=== PATIENT | male | born 1980 | race Caucasian/White ===

== ENCOUNTER 2018-04-14 17:19 | Emergency (ER) | payer MEDICAID, SELFPAY ==
[2018-04-14 17:20] VITALS: BP 141/99; PULSE 63; RESP 16; TEMP 37.2; O2SAT 98; BMI 23.6
--- NOTE | 2018-04-14 17:35 | ED.RN ---
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
[2018-04-14 18:31] LABS: Anion Gap 4 (5-15); BUN 18 mg/dL (7-18); BUN/Creat Ratio 20.8 RATIO (10-20); Calcium,Total 8.8 mg/dL (8.5-10.1); Chloride 106 mmol/L (98-107); Creatinine, Serum 0.86 mg/dL (0.70-1.30); EST Glomerular Filtration Rate 105 mL/min (>60); Est Glom Filt Rate - Afr Amer 127 mL/min (>60); Estimated Creatinine Clearance 120.25 ml/min; Glucose 77 mg/dL (74-106); Potassium 3.9 mmol/L (3.5-5.1); Sodium Level 140 mmol/L (136-145)
--- NOTE | 2018-04-14 19:05 | ED.VISSUMM ---
- ER Visit Summary Date of Service: 04/14/18 Chief Complaint: [Numbness and tingling to right hand and left hand. ] History of Present Illness: The patient is a 37 M presents the emergency department with complaint of numbness mostly to his right hand but he has had some numbness in his left hand as well. Patient does a lot of repetitive motions with his hands at work. Patient notices at night sometimes she will wake up in his entire hand will be numb and initially thought maybe he slept wrong on it. Patient states that while at work he is having numbness in the right hand when using hammers repetitively. He denies any pain in his neck. He denies any real significant weakness in extremities. The numbness tingling typically resolves with rest. Currently he has no numbness. Patient denies any chest pain or shortness of breath.] Physical Examination: [HEENT-PERRLA, EOMI. Cranial nerves II through XII grossly intact. TMs clear. Mucous membranes moist. No adenopathy. Cardiovascular-regular rate and rhythm without murmur or ectopy Lungs-clear to auscultation, chest wall stable without crepitus or subcu emphysema Abdomen-normoactive bowel sounds, soft, nontender, no rebound or rigidity, no peritoneal signs. Extremities-intact ?4, normal range of motion, normal pulses, atraumatic]. 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 There is no thenar wasting. Normal pincher grasp. Negative Tinel sign. Test Results: [BMP obtained was normal] Emergency Department Course and Treatment: [Patient will be given a splint for his right wrist.] Treatment Plan: [Patient given a prescription for Naprosyn and a splint and advised to try to avoid repetitive motions. Patient will be referred to orthopedics for follow-up] Disposition: [Discharged home in stable condition] Impression: [Paresthesias/peripheral neuropathy] This note was generated with [employer]per[employer] dictation software. It may contain incorrect words, spelling, and punctuation that were not noted in review of the chart prior to signing ED Disposition - Plan for ED Patient: Chief Complaint: Numb/Ting Referrals: Care Physician,No Primary [Primary Care Provider] -
--- NOTE | 2018-04-14 19:07 | ED.DEP ---
ED Disposition - Plan for ED Patient: Chief Complaint: Numb/Ting Instructions: ED Neuropathy Peripheral Prescriptions: Naproxen [Naprosyn] 500 mg PO BID PRN #20 tab Referrals: Care Physician,No Primary [Primary Care Provider] - Cal Calzada MD [STAFF PHYSICIAN] - 5-7 Days
[2018-04-14 19:21] VITALS: RESP 16
== END 2018-04-14 19:22 | disposition home or self-care (01) ==
LOC: ED 19:06
PROVIDERS: Emergency Provider Emergency Medicine
DX: R20.2 Paresthesia of skin (principal); G62.9 Polyneuropathy, unspecified; F17.220 Nicotine dependence, chewing tobacco, uncomplicated
CPT/HCPCS: 36415; 80048; 99283

== ENCOUNTER 2020-09-27 02:02 | Observation (INO) | payer MEDICAID, SELFPAY ==
[2020-09-27] VITALS (24 sets, daily range): BP systolic 110–178; BP diastolic 69–100; PULSE 55–556; RESP 14–23; TEMP 35.9–36.9; O2SAT 97–100; BMI 24.7; BMI 25.4
--- NOTE | 2020-09-27 02:03 | EKG12_ITS ---
Test Reason : CP Blood Pressure : / mmHG Vent. Rate : 066 BPM Atrial Rate : 066 BPM P-R Int : 094 ms QRS Dur : 082 ms QT Int : 418 ms P-R-T Axes : 048 047 073 degrees QTc Int : 438 ms Sinus rhythm with short TX Nonspecific ST and T wave abnormality Abnormal ECG Confirmed by DEJUAN WRIGHT, FATUMA ([id number]), television news video editor JOSÉ PARSONS ([id number]) on 09/30/2020 10:56:16 AM Referred By: ABBE Confirmed By:BHAVYA ZAIDI MD
--- NOTE | 2020-09-27 02:03 | CT_ITS ---
STUDY: CTA CHEST REASON FOR EXAM: Male, 40 years old. CHEST PAIN,SOB,ELEVATED BP -- HX:PE RADIATION DOSAGE (If Supplied By Facility): CTDIvol = ( 11.12 ) mGy, DLP = ( 422.13 ) mGycm TECHNIQUE: The examination was performed with the intravenous administration of IV 100mL Isovue-370. Post-processing of the angiographic images was performed, with multiplanar reformation and 3D reconstruction. Individualized dose optimization techniques were used for this CT. COMPARISON: 10/22/2013. FINDINGS: Normal enhancement of the main pulmonary artery and right and left pulmonary arteries. Normal enhancement of the bilateral peripheral pulmonary arteries. There is no demonstrated pulmonary embolism. Normal thoracic aorta and visualized great vessels. There is no demonstrated aortic dissection. Normal heart and pericardium. Normal mediastinum. Normal hilar regions. Normal visualized trachea and bronchi. The lungs are well expanded. Mild posterior dependent atelectasis. Mild atelectasis within the lingular lobe. Otherwise normal pulmonary parenchyma. Normal pleura. Normal chest wall structures. Normal osseous structures. Normal visualized upper abdomen. CT/CTA Chest W/WO Contrast IMPRESSION: Normal CTA chest examination, without a demonstrated pulmonary embolism or arterial dissection. Mild posterior dependent and left lingular atelectasis otherwise no acute cardiopulmonary process. Electronically Signed: Marie Logan MD at 3:32 EST , Service support ,
--- NOTE | 2020-09-27 02:06 | ED.VIS.GEN ---
History of Present Illness Chief Complaint: Chest Pain Informant: Patient Onset: Yesterday Context: Gradual Onset Timing: Continuous Current Severity: Moderate Maximum Severity: Moderate Narrative: The patient is a 40-year-old male who is on no daily medications who presents to the emergency department chest pain. Patient states for the past week, he does not feel himself. He states he has been fatigued. He states he had some scant chest pain. He states that overnight into this morning, the pain got worse. He states he feels short of breath. He describes it as a squeezing pain across his chest. The patient did have history of pulmonary embolus after knee surgery. He states he was treated with anticoagulants for 6 months and did fine. There is a family history of heart disease, but he has no history of coronary vascular disease. He takes no daily medications. He denies cough. Prior similar symptoms: Yes Recent Illness/Hospitalization: No Past Medical History - Allergies and Home Meds Allergies/Adverse Reactions: Allergies No Known Allergies Allergy (Verified 09/27/20 02:03) Primary Care Physician: Deborah Leonard MD [Primary Care Provider] - Prior records reviewed: Yes Past Medical History: - - History of prior PE Surgical History: herniorrhaphy, - - left knee I&D with repair of vastus medialis. Smoking Status: Current every day smoker Review of Systems General: Denies: Chills, Fever, Sweats Eyes: Denies: Visual changes - bilaterally, Diplopia ENT: Denies: Rhinorrhea, Sore throat Cardiovascular: Reports: Chest pain. Denies: Palpitations Respiratory: Reports: Dyspnea. Denies: Cough, Dyspnea on exertion Gastrointestinal: Denies: Abdominal pain, Nausea, Vomiting, Diarrhea, Melena, Hematochezia Genitourinary: Denies: Dysuria, Hematuria, Frequency Musculoskeletal: Denies: Back pain, Extremity Pain Skin: Denies: Rash, Wounds Neurological: Denies: Headache, Weakness, Numbness Physical Exam Vital Signs/Narrative: Vital Signs Temp 09/27/20 02:03 96.6 F L Inital Vital Signs reviewed: Yes General: Well nourished, Well developed, No Acute Distress Head: Normocephalic, Atraumatic Eyes: Perrl, EOMI ENT: Moist mucous membranes, No rhinorrhea Neck: Supple, Nontender Cardiovascular: Regular rate, Regular rhythm, No murmurs Respiratory: No distress, CTA bilaterally, Chest nontender Abdomen: Soft, Nontender, Nondistended, Normal bowel sounds Back: Nontender, Normal Inspection Extremities: Nontender, No edema Skin: Normal color, No rash Neurological: Alert, Oriented x3, Cranial nerves II-XII grossly intact, Normal Strength, Normal Sensation Psychological: Normal affect, Normal Mood Diagnostic/Tx/Re-eval Abnormal Lab Results 09/27/20 09/27/20 09/27/20 02:10 02:10 02:10 WBC 7.8 RBC 5.40 Hgb 14.8 Hct 44.4 MCV 82.2 MCH 27.4 MCHC 33.3 RDW Std Deviation 36.4 RDW Coeff of Mike 12.2 Plt Count 276 MPV 11.7 Immature Gran % (Auto) 0.300 Neut % (Auto) 44.9 L Lymph % (Auto) 41.4 H Montgomery % (Auto) 8.6 Eos % (Auto) 4.2 Baso % (Auto) 0.6 Absolute Neuts (auto) 3.5 Absolute Lymphs (auto) 3.24 Nucleated RBC % 0 Sodium 139 Potassium 3.5 Chloride 104 Carbon Dioxide 29.0 Anion Gap 6 BUN 18 Creatinine 0.96 Estim Creat Clear Calc 107.85 Est GFR (MDRD) Af Amer 111 Est GFR (MDRD) Non-Af 92 BUN/Creatinine Ratio 18.8 Glucose 108 H Calcium 9.8 Magnesium 2.2 Troponin I < 0.015 Lipase 88 - Rhythm Strip Rhythm Strip: Sinus Rhythm Rate: 90 Ectopy: None - EKG Initial EKG Interpretation: Sinus Rhythm, No Acute Injury Pattern Prior: Unchanged - Medical Decision Making Patient presents with substernal chest pain that radiates to his neck. He is rather uncomfortable on arrival. EKG was obtained. Was sinus rhythm without evidence of acute ischemia. There is no significant change from prior. Metabolic work-up was pursued. I did not obtain x-ray, and move directly to CTA. This was reviewed. There was no evidence of pulmonary embolus, effusion, or other dangerous process. His cardiac enzymes are negative. However, given his rather significant pain, that starts in the substernal area and radiates to his neck, along with the shortness of breath, I do feel that he would benefit from observation. The patient was discussed with the hospitalist. Impression 1. Chest pain ED Disposition - Plan for ED Patient: Referrals: Deborah Leonard MD [Primary Care Provider] -
[2020-09-27] MEDS: Morphine 4 MG/ML Syringe IV ×2 (02:12→05:30)
[2020-09-27] MEDS: Aspirin 81 MG TAB.CHEW 324 MG PO (02:12)
[2020-09-27] MEDS: Ondansetron 4 MG/2 ML Vial IV ×2 (02:12→05:30)
[2020-09-27 02:17] LABS: Absolute Lymphocyte Count 3.24 X10^3/uL (0.83-4.51); Absolute Neutrophil Count 3.5 X10^3/uL (2.0-7.7); Basophil# 0.05 X10^3/uL; Basophil% 0.6 % (0-1); Eosinophil# 0.33 X10^3/uL; Eosinophils% 4.2 % (0-5); Hematocrit 44.4 % (40-54); Hemoglobin 14.8 g/dL (13.0-16.5); Lymphocyte # 3.24 X10^3/ul (4.0); Lymphocyte % 41.4 % (19-41); Mean Corp Hgb Conc 33.3 g/dL (32-36); Mean Corpuscular Hgb 27.4 pg (27.0-32.0); Mean Corpuscular Volume 82.2 fL (80-94); Mean Platelet Vol. 11.7 fl (6.2-12.0); Monocyte# 0.67 X10^3/uL; Monocyte% 8.6 % (0-10); NRBC Flagged by Analyzer 0 % (0-5); Neutrophil # 3.52 X10^3/uL (2.7-7.7); Neutrophil % 44.9 % (47-70); Platelet Count 276 K/mm3 (150-450); RBC Distribution Width CV 12.2 % (11.6-14.6); RBC Distribution Width SD 36.4 fl (35.1-43.9); White Blood Count 7.8 K/mm3 (4.4-11.0)
[2020-09-27 02:42] LABS: Anion Gap 6 (5-15); BUN 18 mg/dL (7-18); BUN/Creat Ratio 18.8 RATIO (10-20); Calcium,Total 9.8 mg/dL (8.5-10.1); Chloride 104 mmol/L (98-107); Creatinine, Serum 0.96 mg/dL (0.70-1.30); EST Glomerular Filtration Rate 92 mL/min (>60); Est Glom Filt Rate - Afr Amer 111 mL/min (>60); Estimated Creatinine Clearance 107.85 ml/min; Glucose 108 mg/dL (74-106); Magnesium 2.2 mg/dL (1.6-2.6); Potassium 3.5 mmol/L (3.5-5.1); Sodium Level 139 mmol/L (136-145)
[2020-09-27 02:55] LABS: Lipase 88 U/L (73-393)
--- NOTE | 2020-09-27 03:10 | EKG12_ITS ---
Test Reason : REPEAT CP Blood Pressure : / mmHG Vent. Rate : 061 BPM Atrial Rate : 061 BPM P-R Int : 144 ms QRS Dur : 088 ms QT Int : 432 ms P-R-T Axes : 052 044 067 degrees QTc Int : 434 ms Normal sinus rhythm Normal ECG Confirmed by DEJUAN WRIGHT, FATUMA ([id number]), staff editor JOSÉ PARSONS ([id number]) on 09/30/2020 10:58:49 AM Referred By: ABBE Confirmed By:BHAVYA ZAIDI MD
--- NOTE | 2020-09-27 03:33 | HP.PCM_ITS ---
Problem List (1) Chest pain Status: Acute Qualifiers: Chest pain type: unspecified Qualified Code(s): R07.9 - Chest pain, unspecified (2) Elevated BP without diagnosis of hypertension Status: Acute (3) Chewing tobacco use Status: Chronic (4) Anxiety Status: Chronic (5) Pulmonary embolism and infarction Status: Resolved History of Present Illness Date of Admission: 09/27/20 Chief Complaint: Chest pain The patient is a 40 y/o M w/ PMHx: Hx BL PE following knee surgery, Anxiety, Chew Tobacco use who presents to the [facility] ED on 09/27/20 with history of body aches specifically worsened back discomfort acute on chronic making sleeping very difficult noting that he been going from different beds and couches in the house without great success over the last 1 to 2 weeks, more severe over the last week with an onset of intermittent sensation upon awakening of some discomfort radiating from his back to the midsternal chest region with increased fatigue, malaise, episodes of loose stools x2 days with no specific fever, chills, nausea, emesis, alteration of sense of taste or smell, cough but dyspnea worse with exertion and significant onset on day of ED presentation of severe pain rated 10 out of 10 which he reports starting initially in his umbilicus region and extending upwards not specifically in the midsternal region but the lateral parts of his chest bilaterally up towards his bilateral neck region reported as a squeezing with increased dyspnea prompting ED presentation. Patient currently reports improvement rating his discomfort currently now 3 out of 10 in severity. He does note when he did lay flat in the CT scanner he had onset again of severe discomfort. He denies any recent specific ill contacts but does note that his children go to school. Work-up in the ED included T 96.6, heart rate 68, BP initially 178/100, respiratory rate 23, on a percent on room air, CBC with WC 7.8, hemoglobin 14.8, platelet 276 with no significant shift, BMP unremarkable aside glucose 108, magnesium 2.2, troponin less than 0.015, lipase 88, BNP pending, chest CTPA with no evidence of PE or arterial dissection, mild posterior dependent and left lingular atelectasis otherwise no acute cardiopulmonary findings, EKG with SR without acute evidence of ischemia. In the ED patient ministered Zofran, morphine, aspirin, normal saline. Recent outpatient COVID testing day prior of unclear type negative per patient report. Past Medical History Past Medical History (Chronic Problems): Chronic Problems (Last Reviewed 12/21/18 @ 10:01 by Jannet Marquez) Chewing tobacco use (Chronic) Anxiety (Chronic) Right groin pain (Chronic) Dermatitis (Chronic) Urinary frequency (Chronic) Kidney stones (Chronic) Back problem (Chronic) Medical History: Medical History (Last Reviewed 12/21/18 @ 10:01 by Jannet Marquez) Kidney stones (Chronic) N20.0 Back problem (Chronic) M53.9 Allergies No Known Allergies Allergy (Verified 09/27/20 02:03) Home Medications: Ambulatory Orders Medication Instructions Recorded NK 09/27/20 Surgical History: Surgical History (Last Reviewed 12/21/18 @ 10:01 by Jannet Marquez) History of knee surgery Z98.890 Surgical History: herniorrhaphy, - - Left knee I&D with repair of vastus medialis secondary to saw injury. Psychiatric History: No pertinent psych hx Lives: Spouse/ Significant Other, With Family Smoking Status: Current some day smoker - Patient will occasionally smoke cigarettes however primarily chewed tobacco user. Tobacco Use: Chew - Patient with ongoing chew tobacco with 1 can daily usage. Alcohol: None Drugs: None - *Family History Maternal Family History: Family History (Last Reviewed 12/21/18 @ 10:01 by Jannet Marquez) Aunt Cancer CVA (cerebral vascular accident) Uncle Cancer Father Myocardial infarction Heart disease Mother Kidney disease Skin cancer History Items: Cancer - Skin cancer., Renal Disease - Mother with a history of renal disease eventually requiring dialysis. Paternal Family History: Family History (Last Reviewed 12/21/18 @ 10:01 by Jannet Marquez) Aunt Cancer CVA (cerebral vascular accident) Uncle Cancer Father Myocardial infarction Heart disease Mother Kidney disease Skin cancer History Items: High Cholesterol, Heart Disease, Hypertension Review of Systems Constitutional: Reports: Malaise, Weakness, Fatigue. Denies: Chills, Fever, Weight Change HEENT: Denies: Head Aches, Sinus Congestion, Sinus Drainage Cardiovascular: Reports: Chest Pain, Chest Tightness. Denies: Light Headedness, Orthopnea, Palpitations, Syncope Respiratory: Reports: Shortness of Breath, Shortness of breath at rest, Shortness of breath upon exertion. Denies: Cough, Sputum production Gastrointestinal: Reports: Diarrhea. Denies: Abdominal Pain, Nausea, Vomiting Genitourinary: Denies: Dysuria Musculoskeletal: Reports: Back Pain, Joint Pain. Denies: Joint Tenderness Skin: Denies: Rash, Wounds Neurological: Denies: Numbness, Tingling, Focal weakness Psychiatric: Reports: Anxiety. Denies: Depression, Homicidal Ideations, Suicidal Ideations Hematologic/ Lymphatic: Denies: Easy Bruising, Easy Bleeding VTE Information - Inpt Only VTE Present on Admission: No VTE Mechan Device Prophylaxis: SCD's VTE Pharm Prophylaxis ordered?: Yes Subjective: Patient seated upright in the ED bed, fatigued appearing otherwise no acute distress, notes chest discomfort improving. Objective: Physical Examination: General: awake, alert, oriented x 3 and cooperative, seated upright in the ED bed, fatigued appearance otherwise no acute distress, chest pain improving, 3 out of 10 in severity. Skin: normal color, turgor, no icterus, cyanosis. HEENT: AT/NC, EOMI, PERRLA, moderately dry MM, no carotid bruits or JVD noted. Lungs: CTA bilaterally, moderate effort, mild decrease BL bases, no rales, ronchi or wheezing. Heart: Regular rate and rhythm; no gallop, rub audible. Abdomen: soft, NTTP, ND, normal BS, no HSM. Extremities: no cyanosis, clubbing, or edema. Neurological: patient awake, alert, oriented as noted; cognitive function intact; pupils equally reactive to light and accomodation; cranial nerves II-XII grossly normal, moving all 4 extremities, no focal deficits, strength mildly to moderately global decreased secondary to acute presentation and complaints. Psychiatric: affect appears fatigued otherwise normal, no acute evidence of depressive or anxiety feelings. - Physical Exam Vitals/I&O's: Vital Signs Temp Pulse Resp BP Pulse Ox 96.6 F L 68 23 H 178/100 H 100 09/27/20 02:03 09/27/20 02:03 09/27/20 02:03 09/27/20 02:03 09/27/20 02:08 Oxygen Flow Rate (L/min) 2 Oxygen Delivery Method Nasal Cannula Weight: 177 lb 0.499 oz Body Mass Index (BMI) 24.7 Laboratory Results 09/27/20 02:10: WBC 7.8, RBC 5.40, Hgb 14.8, Hct 44.4, MCV 82.2, MCH 27.4, MCHC 33.3, RDW Std Deviation 36.4, RDW Coeff of Mike 12.2, Plt Count 276, MPV 11.7, Immature Gran % (Auto) 0.300, Neut % (Auto) 44.9 L, Lymph % (Auto) 41.4 H, Borden % (Auto) 8.6, Eos % (Auto) 4.2, Baso % (Auto) 0.6, Absolute Neuts (auto) 3.5, Absolute Lymphs (auto) 3.24, Nucleated RBC % 0 09/27/20 02:10: Sodium 139, Potassium 3.5, Chloride 104, Carbon Dioxide 29.0, Anion Gap 6, BUN 18, Creatinine 0.96, Estim Creat Clear Calc 107.85, Est GFR (MDRD) Af Amer 111, Est GFR (MDRD) Non-Af 92, BUN/Creatinine Ratio 18.8, Glucose 108 H, Calcium 9.8, Magnesium 2.2, Troponin I < 0.015 09/27/20 02:10: B-Natriuretic Peptide Pending 09/27/20 02:10: Lipase 88 Current Medications Sodium Chloride () 1,000 mls @ 150 mls/hr IV .Q6H40M [facility] Assessment/Plan All Active Problems (Last Reviewed 12/21/18 @ 10:01 by Jannet Marquez) Chest pain (Acute) Elevated BP without diagnosis of hypertension (Acute) Pulmonary embolism and infarction (Resolved) The patient is a 40 y/o M w/ PMHx: Hx BL PE following knee surgery, Anxiety, Ch ew Tobacco use who presents to the [facility] ED on 09/27/20 with history of body aches specifically worsened back discomfort acute on chronic over the last 1 to 2 weeks with onset atypical chest discomfort as well as malaise, fatigue, dyspnea and 2 days of loose stools prompting ED evaluation. 1. Chest Pain, atypical: EKG in ED with SR without acute evidence of ischemia, chest CTPA with no evidence of PE or arterial dissection, mild posterior dependent and left lingular atelectasis otherwise no acute cardiopulmonary findings, initial trop normal x1. Will admit to PCU, place on a monitored bed to assure no acute myocardial infarction with serial cardiac enzymes and EKGs. Given history of fatigue, not feeling himself, shortness of breath will also request Covid testing specifically PCR as patient did have recent outpatient COVID testing of unclear type. If COVID testing is negative we will continue to pursue serial cardiac enzymes and repeat EKGs and if remain unremarkable will pursue a.m. cardiac stress ECHO. CRP pending. Mag pending. FLP in AM. ASA, NG, morphine. 2. Elevated BP without hypertensive diagnosis: Significantly elevated BP upon ED presentation, possibly assist with acute presentation, will add regimen if appropriate, in the interim as needed IV hydralazine. 3. History of prior pulmonary embolism, provoked: Patient with history of PE following knee surgery, will maintain on prophylaxis as noted. 4. Chew Tobacco Abuse: Encouraged cessation, inpatient consultation per RT, NR if desired. 5. Anxiety: Not on regimen, encourage continued outpatient follow-up with PCP and counseling if appropriate. 6. DVT prophylaxis: SCDs, Lovenox. OBSV E&M: [id number] Initial observation care L3
[2020-09-27 03:40] LABS: BNP,B-Type NATRIURETIC PEPTIDE 19.5 pg/mL (0-100)
[2020-09-27] MEDS: 0.9% Normal Saline 1,000 ML 150 ML IV (03:45)
[2020-09-27] MEDS: 0.9% Normal Saline 1,000 ML 100 ML IV (04:30)
[2020-09-27 04:36] LABS: ALB/GLOB Ratio 1.1 RATIO (0.9-2.4); AST(SGOT) 32 U/L (15-37); Alanine Aminotransfer ALT/SGPT 74 U/L (16-61); Albumin, Serum 4.1 g/dL (3.2-5.0); Alkaline Phosphatase 88 U/L (45-117); Anion Gap 8 (5-15); BUN 18 mg/dL (7-18); BUN/Creat Ratio 17.8 RATIO (10-20); Calcium,Total 9.3 mg/dL (8.5-10.1); Chloride 104 mmol/L (98-107); Cholesterol 165 mg/dL (200); Creatinine, Serum 1.01 mg/dL (0.70-1.30); EST Glomerular Filtration Rate 87 mL/min (>60); Est Glom Filt Rate - Afr Amer 105 mL/min (>60); Estimated Creatinine Clearance 99.38 ml/min; Globulin 3.7 g/dL (2.2-4.2); Glucose 104 mg/dL (74-106); High Density Lipoprotein 42 mg/dL; Magnesium 2.1 mg/dL (1.6-2.6); Potassium 3.6 mmol/L (3.5-5.1); Protein, Total 7.8 g/dL (6.4-8.2); Sodium Level 139 mmol/L (136-145); Triglycerides 179 mg/dL; Very Low Density Lipoprotein 36 mg/dL (5-40)
--- NOTE | 2020-09-27 04:43 | PCS.PANDOC ---
PANDEMIC DOCUMENTATION INITIATED: Date: 09/27/20 Time: 0411
--- NOTE | 2020-09-27 04:51 | EKG12_ITS ---
Test Reason : CP ADMISSION Blood Pressure : / mmHG Vent. Rate : 053 BPM Atrial Rate : 053 BPM P-R Int : 164 ms QRS Dur : 088 ms QT Int : 444 ms P-R-T Axes : 060 032 030 degrees QTc Int : 416 ms Sinus bradycardia Otherwise normal ECG When compared with ECG of 27-SEP-2020 03:10, MANUAL COMPARISON REQUIRED, DATA IS UNCONFIRMED Confirmed by LYDIA WRIGHT, ALYSSA ([id number]), story editor JOSÉ PARSONS ([id number]) on 10/02/2020 10:18:52 AM Referred By: FAVIOLA Confirmed By:ALYSSA FREEMAN MD
[2020-09-27] MEDS: 0.9% Saline Lock 10 ML Syringe IV (05:32)
[2020-09-27 05:42] LABS: Absolute Lymphocyte Count 1.46 X10^3/uL (0.83-4.51); Absolute Neutrophil Count 4.8 X10^3/uL (2.0-7.7); Basophil# 0.03 X10^3/uL; Basophil% 0.4 % (0-1); Eosinophil# 0.19 X10^3/uL; Eosinophils% 2.7 % (0-5); Hematocrit 40.7 % (40-54); Hemoglobin 13.4 g/dL (13.0-16.5); Lymphocyte # 1.46 X10^3/ul (4.0); Lymphocyte % 20.9 % (19-41); Mean Corp Hgb Conc 32.9 g/dL (32-36); Mean Corpuscular Hgb 27.5 pg (27.0-32.0); Mean Corpuscular Volume 83.4 fL (80-94); Mean Platelet Vol. 12.1 fl (6.2-12.0); Monocyte# 0.51 X10^3/uL; Monocyte% 7.3 % (0-10); NRBC Flagged by Analyzer 0 % (0-5); Neutrophil % 68.6 % (47-70); Platelet Count 241 K/mm3 (150-450); RBC Distribution Width CV 12.2 % (11.6-14.6); Red Blood Count 4.88 M/mm3 (4.6-6.2)
[2020-09-27 05:50] LABS: International Normalized Ratio 1.1; Prothrombin Time (Protime)PT. 13.3 SECONDS (11.7-14.9)
[2020-09-27 05:51] LABS: Partial Thromboplast Time 27.1 Seconds (24.1-36.2)
--- NOTE | 2020-09-27 06:07 | ECHOD_ITS ---
Reason For Study: CHEST PAIN Procedure This was a 2D Doppler, Color Flow transthoracic echocardiogram. Exam performed portable in ICU/CCU. Left Ventricle Normal LV size. The estimated ejection fraction is 65 %. No evidence for diastolic dysfunction. No regional wall motion abnormalities noted. Right Ventricle Normal RV size. Normal systolic function. Atria Normal left atrium. Normal right atrium. No doppler evidence for ASD. Mitral Valve There is no mitral valve stenosis. Trivial mitral valve insufficiency. Tricuspid Valve There is no tricuspid stenosis. Trivial tricuspid valve insufficiency. Pulmonary artery systolic pressure is 30-35 mmHg. Aortic Valve Trisinus/trileaflet aortic valve. There is no aortic stenosis. No aortic valve insufficiency. Pulmonic Valve There is no pulmonic valvular stenosis. Trivial pulmonic valve insufficiency. Great Vessels Normal aortic root. Pericardium/Pleural No pericardial effusion. MMode/2D Measurements & Calculations LVIDd: 4.3 cm IVSd: 1.1 cm Ao root diam: 3.6 cm LVIDs: 2.6 cm LVPWd: 1.1 cm RVDd: 3.5 cm FS: 40.5 % LAV(MOD-bp): 65.2 ml LA A4 area: 21.5 cm2 LA dimension(2D): 3.8 cm LAV(MOD-bp) Indexed: 32.9 ml/m2 LAV(MOD-sp2): 66.5 ml LAV(MOD-sp4): 66.4 ml RA A4 area: 15.2 cm2 Time Measurements MV dec time: 0.16 sec Doppler Measurements & Calculations MV E max jose: 103.4 cm/sec Lat Peak E' Jose: 14.1 cm/sec Med Peak E' Jose: 12.8 cm/sec MV A max jose: 60.4 cm/sec E/E' lat: 7.3 E/E' med: 8.1 MV E/A: 1.7 Ao V2 max: 115.2 cm/sec LV V1 max: 105.3 cm/sec PA V2 max: 82.3 cm/sec Ao max P.3 mmHg LV V1 max P.4 mmHg Interpretation Summary The estimated ejection fraction is 65 %. No evidence for diastolic dysfunction. Trivial mitral valve insufficiency. Ordering Physician: Carline Sanders Referring Physician: Deborah Leonard Performed By: Payton Knox, RIVERA, RVT
[2020-09-27] MEDS: Enoxaparin 80 MG/0.8 ML Syringe SC (06:29)
--- NOTE | 2020-09-27 12:21 | NURSING ---
report called to pcu will transfer to room 121 post heart cath
--- NOTE | 2020-09-27 12:23 | PCM.CONS.C ---
Reason for Consult Date of Consultation: 09/27/20 Reason for Consultation: Chest pain, elevated troponin History of Present Illness: The patient is a 40 year old M [with past medical history of PE after knee surgery about 10 years ago for which he was on anticoagulation for 6 months presenting to [facility] because of chest pain that has been going on for a week. Patient states that the discomfort starts on both sides of his chest and goes up to the right side of his neck. He initially was noticing it when he was lying down flat. It got better sometime after getting up and walking around. The pain is not exertional. He still gets the pain on and off. His troponin has gone up to 3.4. One of his EKGs subtle MT elevation in aVR and MT depression and upsloping ST depression in inferior leads. He does not have any worsening of chest pain on inspiration. Review of systems: All systems reviewed. All else is negative except that in HPI] Past Medical History Allergies/Adverse Reactions: Allergies No Known Allergies Allergy (Verified 09/27/20 02:03) Home Medications: Ambulatory Orders Medication Instructions Recorded NK 09/27/20 Past Medical History (Chronic Problems): Chronic Problems (Last Reviewed 12/21/18 @ 10:01 by Jannet Marquez) Chewing tobacco use (Chronic) Anxiety (Chronic) Right groin pain (Chronic) Dermatitis (Chronic) Urinary frequency (Chronic) Kidney stones (Chronic) Back problem (Chronic) Surgical History: herniorrhaphy, - - Left knee I&D with repair of vastus medialis secondary to saw injury. Psychiatric History: No pertinent psych hx - *Family History Maternal Family History: Family History (Last Reviewed 12/21/18 @ 10:01 by Jannet Marquez) Aunt Cancer CVA (cerebral vascular accident) Uncle Cancer Father Myocardial infarction Heart disease Mother Kidney disease Skin cancer History Items: Cancer - Skin cancer., Renal Disease - Mother with a history of renal disease eventually requiring dialysis. Paternal Family History: Family History (Last Reviewed 12/21/18 @ 10:01 by Jannet Marquez) Aunt Cancer CVA (cerebral vascular accident) Uncle Cancer Father Myocardial infarction Heart disease Mother Kidney disease Skin cancer History Items: High Cholesterol, Heart Disease, Hypertension Lives: Spouse/ Significant Other, With Family Smoking Status: Current some day smoker Tobacco Use: Chew Alcohol: None Drugs: None Objective: Vital Signs Temp Pulse Resp BP Pulse Ox 97.8 F 60 18 126/80 H 97 09/27/20 09:44 09/27/20 11:27 09/27/20 09:44 09/27/20 09:44 09/27/20 09:44 Oxygen Flow Rate (L/min) 2 Oxygen Delivery Method Room Air Weight: 177 lb 0.499 oz Body Mass Index (BMI) 25.4 Intake and Output for Last 24 Hours 09/25/20 09/26/20 09/27/20 23:59 23:59 23:59 Intake Total 62.5 / 62.5 Balance 62.5 / 62.5 General: Awake, Alert, Oriented x 3 HEENT: Atraumatic Oral: Moist Mucosa Neck: Supple Lungs: Clear to auscultation Cardiovascular: Regular Rhythm Abdomen: Soft Extremities: No edema Skin: No Rashes 09/27/20 02:10: WBC 7.8, RBC 5.40, Hgb 14.8, Hct 44.4, MCV 82.2, MCH 27.4, MCHC 33.3, Plt Count 276, MPV 11.7, Immature Gran % (Auto) 0.300, Neut % (Auto) 44.9 L, Lymph % (Auto) 41.4 H, Ritchie % (Auto) 8.6, Eos % (Auto) 4.2, Baso % (Auto) 0.6, Absolute Neuts (auto) 3.5, Nucleated RBC % 0 09/27/20 02:10: Sodium 139, Potassium 3.5, Chloride 104, Carbon Dioxide 29.0, Anion Gap 6, BUN 18, Creatinine 0.96, Est GFR (MDRD) Af Amer 111, Est GFR (MDRD) Non-Af 92, BUN/Creatinine Ratio 18.8, Glucose 108 H, Calcium 9.8, Magnesium 2.2, Troponin I < 0.015 09/27/20 02:10: B-Natriuretic Peptide 19.5 09/27/20 02:10: Sodium 139, Potassium 3.6, Chloride 104, Carbon Dioxide 27.0, Anion Gap 8, BUN 18, Creatinine 1.01, Est GFR (MDRD) Af Amer 105, Est GFR (MDRD) Non-Af 87, BUN/Creatinine Ratio 17.8, Glucose 104, Calcium 9.3, Magnesium 2.1, Total Bilirubin 0.30, Triglycerides 179, Cholesterol 165, LDL Cholesterol 87, VLDL Cholesterol 36, HDL Cholesterol 42 09/27/20 05:30: WBC 7.0, RBC 4.88, Hgb 13.4, Hct 40.7, MCV 83.4, MCH 27.5, MCHC 32.9, Plt Count 241, MPV 12.1 H, Immature Gran % (Auto) 0.100, Neut % (Auto) 68.6, Lymph % (Auto) 20.9, Ritchie % (Auto) 7.3, Eos % (Auto) 2.7, Baso % (Auto) 0.4, Absolute Neuts (auto) 4.8, Nucleated RBC % 0 09/27/20 05:30: Troponin I 0.536 H 09/27/20 05:30: PT 13.3, INR 1.1, APTT 27.1 09/27/20 10:15: Troponin I 3.410 H* Rhythm: EKG: ECHO: Stress Test: Cardiac Cath: PCI: CT Surgery: Holter monitor: EPS: PPM: CXR: Chest CT Scan: Assessment/Plan 1. Chest pain: This sounds like myopericarditis by history. However patient does have family history of coronary artery disease. We will proceed with coronary angiography to see if patient has significant CAD that can explain his elevated troponin and chest pain. If the angiography is negative then he may need CT chest to rule out PE as well as he states that his discomfort was similar to some extent to what he felt prior to the PE.
--- NOTE | 2020-09-27 13:13 | PCM.PN.HOSP ---
Patient Problems: Active and Suspected Problems (Last Reviewed 12/21/18 @ 10:01 by Jannet Marquez) Chest pain (Acute) Elevated BP without diagnosis of hypertension (Acute) Subjective: Patient seen and examined. He was admitted with a complaint of chest pain. This pain started last week and he describes this as sharp and radiating to his neck and worsened by lying flat and relieved completely by sitting forward. Brother has had chest pain before in the past and denies any lightheadedness or dizziness, palpitations or recent upper respiratory tract infection though he admits to a history of diarrhea. Review of symptoms otherwise negative. Troponins x3 have been negative. Cardiology is on board. Vitals/I&O's: Vital Signs Temp Pulse Resp BP Pulse Ox 97.8 F 60 18 126/80 H 97 09/27/20 09:44 09/27/20 11:27 09/27/20 09:44 09/27/20 09:44 09/27/20 09:44 Oxygen Flow Rate (L/min) 2 Oxygen Delivery Method Room Air Weight: 177 lb 0.499 oz Body Mass Index (BMI) 25.4 Intake and Output for Last 24 Hours 09/25/20 09/26/20 09/27/20 23:59 23:59 23:59 Intake Total 62.5 / 62.5 Balance 62.5 / 62.5 General: Alert, Oriented x3, Cooperative HEENT: Atraumatic, PERRLA, EOMI, Normocephalic Oral: Moist Mucosa Neck: Supple, No JVD, Negative Carotid Bruits Lungs: Clear to auscultation, Normal air movement Cardiovascular: Regular rate, Regular Rhythm, Normal S1, Normal S2, No murmurs Abdomen: Bowel Sounds Present, Soft, Non Tender Extremities: No edema, Capillary Refill Less than 3 Seconds Skin: No rashes, No breakdown Musculoskeletal: No Tenderness to Palpation of Joints or Extremities Neurological: Cranial nerves II-XII grossly intact, Neuro grossly intact, Motor Exam 5/5 strength throughout Psych/Mental Status: Normal Affect, Appropriate, Alert and oriented to time, place, person, mood and affect Laboratory Results 09/27/20 02:10: WBC 7.8, RBC 5.40, Hgb 14.8, Hct 44.4, MCV 82.2, MCH 27.4, MCHC 33.3, RDW Std Deviation 36.4, RDW Coeff of Mike 12.2, Plt Count 276, MPV 11.7, Immature Gran % (Auto) 0.300, Neut % (Auto) 44.9 L, Lymph % (Auto) 41.4 H, Terrell % (Auto) 8.6, Eos % (Auto) 4.2, Baso % (Auto) 0.6, Absolute Neuts (auto) 3.5, Absolute Lymphs (auto) 3.24, Nucleated RBC % 0 09/27/20 02:10: Sodium 139, Potassium 3.5, Chloride 104, Carbon Dioxide 29.0, Anion Gap 6, BUN 18, Creatinine 0.96, Estim Creat Clear Calc 107.85, Est GFR (MDRD) Af Amer 111, Est GFR (MDRD) Non-Af 92, BUN/Creatinine Ratio 18.8, Glucose 108 H, Calcium 9.8, Magnesium 2.2, Troponin I < 0.015 09/27/20 02:10: B-Natriuretic Peptide 19.5 09/27/20 02:10: Lipase 88 09/27/20 02:10: Sodium 139, Potassium 3.6, Chloride 104, Carbon Dioxide 27.0, Anion Gap 8, BUN 18, Creatinine 1.01, Estim Creat Clear Calc 99.38, Est GFR (MDRD) Af Amer 105, Est GFR (MDRD) Non-Af 87, BUN/Creatinine Ratio 17.8, Glucose 104, Calcium 9.3, Magnesium 2.1, Total Bilirubin 0.30, AST 32, ALT 74 H, Alkaline Phosphatase 88, Total Protein 7.8, Albumin 4.1, Globulin 3.7, Albumin/Globulin Ratio 1.1, Triglycerides 179, Cholesterol 165, LDL Cholesterol 87, VLDL Cholesterol 36, HDL Cholesterol 42 09/27/20 04:50: COVID-19 (SHANA) Not Detected 09/27/20 05:30: WBC 7.0, RBC 4.88, Hgb 13.4, Hct 40.7, MCV 83.4, MCH 27.5, MCHC 32.9, RDW Std Deviation 37.0, RDW Coeff of Mike 12.2, Plt Count 241, MPV 12.1 H, Immature Gran % (Auto) 0.100, Neut % (Auto) 68.6, Lymph % (Auto) 20.9, Terrell % (Auto) 7.3, Eos % (Auto) 2.7, Baso % (Auto) 0.4, Absolute Neuts (auto) 4.8, Absolute Lymphs (auto) 1.46, Nucleated RBC % 0 09/27/20 05:30: Troponin I 0.536 H 09/27/20 05:30: PT 13.3, INR 1.1, APTT 27.1 09/27/20 10:15: Troponin I 3.410 H* Diagnostic Data Chest CTA 09/27/20 02:03 IMPRESSION: Normal CTA chest examination, without a demonstrated pulmonary embolism or arterial dissection. Mild posterior dependent and left lingular atelectasis otherwise no acute cardiopulmonary process. Electronically Signed: Marie Logan MD at 3:32 EST , Service support , Current Medications Acetaminophen (Acetaminophen 325 Mg Tablet) 650 mg PO Q6H PRN PRN PRN Reason: Pain Score 1-10/Temp > 100.7 F Al Hydroxide/Mg Hydroxide (Mag Hydrox/Al Hydrox/Simeth 30 Ml Udc) 30 ml PO Q6H PRN PRN PRN Reason: Gastric Burning Albuterol Sulfate (Albuterol 2.5 Mg/3 Ml Vial.Neb.) 2.5 mg INHALATION Q2H PRN PRN PRN Reason: Dyspnea, wheezing Aspirin (Aspirin E.C. 81 Mg Tablet) 81 mg PO DAILY@0800 [facility] Enoxaparin Sodium (Enoxaparin 80 Mg/0.8 Ml Syringe) 80 mg SC Q12@0600,1800 [facility] Last Admin: 09/27/20 06:29 Dose: 80 mg Documented by: Guaifenesin (Guaifenesin 10 Ml Udc (200mg/10ml)) 20 ml PO Q4H PRN PRN PRN Reason: COUGH Hydralazine HCl (Hydralazine 20 Mg/Ml Vial) 10 mg IV Q4H PRN PRN PRN Reason: SBP > 160 Sodium Chloride () 1,000 mls @ 100 mls/hr IV .Q10H [facility] Last Admin: 09/27/20 04:30 Dose: 100 mls/hr Documented by: Sodium Chloride () 250 mls @ 15 mls/hr IV .[id number] PRN PRN Reason: Saline Flush Sodium Chloride () 250 mls @ 15 mls/hr IV .[id number] PRN PRN Reason: Additional IVPB Infusion Sodium Chloride () 1,000 mls @ 60 mls/hr IV .[id number] [facility] Magnesium Hydroxide (Magnesium Hydroxide 30 Ml Udc) 30 ml PO DAILY PRN PRN PRN Reason: Constipation Morphine Sulfate (Morphine 4 Mg/Ml Syringe) 4 mg IV Q3H PRN PRN PRN Reason: Pain Score 6-10 Last Admin: 09/27/20 05:30 Dose: 4 mg Documented by: Nicotine Polacrilex (Nicotine Polacrilex 2 Mg Gum) 2 mg PO Q2H PRN PRN PRN Reason: nicotive craving Nitroglycerin (Nitroglycerin (Inpatient Use) 0.4 Mg Tab.Subl) 0.4 mg SUBLINGUAL Q5M PRN PRN Reason: CARDIAC/CHEST PAIN Ondansetron HCl (Ondansetron 4 Mg/2 Ml Vial) 4 mg IV Q8H PRN PRN PRN Reason: NAUSEA/VOMITING Last Admin: 09/27/20 05:30 Dose: 4 mg Documented by: Oxycodone HCl (Oxycodone 5 Mg Tablet) 5 mg PO Q4H PRN PRN PRN Reason: Pain Score 4-5 Prochlorperazine Edisylate (Prochlorperazine 10 Mg/2 Ml Vial) 5 mg IV Q4H PRN PRN PRN Reason: Breakthrough Nausea/Vomiting Psyllium Hydrophilic Mucilloid (Psyllium 1 Packet) 1 packet PO DAILY PRN PRN PRN Reason: Constipation Senna/Docusate Sodium (Senna/Docusate Sodium 1 Tablet) 2 tablet PO BID PRN PRN PRN Reason: Constipation Sodium Chloride (0.9% Saline Lock 10 Ml Syringe) 10 - 40 ml IV UD PRN PRN Reason: SALINE FLUSH Last Admin: 09/27/20 05:32 Dose: 20 ml Documented by: Temazepam (Temazepam 15 Mg Capsule) 15 mg PO QHS PRN PRN PRN Reason: INSOMNIA Throat Lozenges (Benzocaine/Menthol 1 Lozenge) 1 lozenge MUCOUS MEM Q2H PRN PRN PRN Reason: SORE THROAT STROKE Vital Signs/Narrative: Vital Signs Temp Pulse Resp BP Pulse Ox 09/27/20 11:27 60 09/27/20 10:15 56 L 09/27/20 09:44 97.8 F 56 L 18 126/80 H 97 Medical Necessity - Tobacco Use Smoking Status: Current some day smoker Tobacco Use: Chew Assessment/Plan All Active Problems (Last Reviewed 12/21/18 @ 10:01 by Jannet Marquez) Chest pain (Acute) Elevated BP without diagnosis of hypertension (Acute) Pulmonary embolism and infarction (Resolved) #Nonstemi Troponins trended up to 0.536 then even higher to 3.4 cardiology on board. on aspirin, statin and heparin drip for cardiac cath today, per cardiology; symptoms appear to be typical for pericarditis, with chest pain relieved by sitting up and worsened by lying down. EKG however didnt show diffuse ST elevations and didnt show any acute ST changes. COVID test was negative. EKG showed no acute ST changes #Elevated blood pressure: No history of hypertension. Blood pressure down to 126/80 without any meds. Will monitor blood pressure and start blood pressure medications as needed. Since he had non-STEMI, will likely start on low-dose beta madhuri and RAMAN-I after cardiac cath. # History of PE: stable. not on any meds now # Anxiety: not on any meds. To follow up with PCP on outpatient basis. # Nicotine dependence: chews tobacco. Counseled to quit. DVT prophylaxis: lovenox
[2020-09-27] MEDS: 0.9% Normal Saline 1,000 ML 60 ML IV (13:50)
[2020-09-27] MEDS: Mag Hydrox/Al Hydrox/Simeth 30 ML UDC PO (17:18)
[2020-09-27 19:03] LABS: Erythrocyte Sedimentation Rate 2 mm/hr (0-20)
[2020-09-27 19:05] LABS: CRP < 2.90 mg/L (0.0-3.0)
[2020-09-27] MEDS: Ibuprofen 600 MG Tablet PO (22:08)
[2020-09-28] VITALS (7 sets, daily range): BP systolic 108–123; BP diastolic 60–80; PULSE 51–71; RESP 16–18; TEMP 36.5–37; O2SAT 97–98
[2020-09-28] MEDS: Ibuprofen 600 MG Tablet PO (06:11)
[2020-09-28] MEDS: Enoxaparin 80 MG/0.8 ML Syringe SC (06:13)
[2020-09-28 08:05] LABS: Absolute Lymphocyte Count 1.56 X10^3/uL (0.83-4.51); Basophil# 0.03 X10^3/uL; Basophil% 0.6 % (0-1); Eosinophil# 0.33 X10^3/uL; Eosinophils% 6.1 % (0-5); Hematocrit 40.5 % (40-54); Hemoglobin 13.2 g/dL (13.0-16.5); Lymphocyte # 1.56 X10^3/ul (4.0); Lymphocyte % 28.8 % (19-41); Mean Corp Hgb Conc 32.6 g/dL (32-36); Mean Corpuscular Hgb 27.2 pg (27.0-32.0); Mean Corpuscular Volume 83.5 fL (80-94); Mean Platelet Vol. 12.2 fl (6.2-12.0); Monocyte# 0.52 X10^3/uL; Monocyte% 9.6 % (0-10); NRBC Flagged by Analyzer 0 % (0-5); Neutrophil # 2.97 X10^3/uL (2.7-7.7); Neutrophil % 54.7 % (47-70); Platelet Count 223 K/mm3 (150-450); RBC Distribution Width CV 12.5 % (11.6-14.6); RBC Distribution Width SD 37.7 fl (35.1-43.9); Red Blood Count 4.85 M/mm3 (4.6-6.2); White Blood Count 5.4 K/mm3 (4.4-11.0)
[2020-09-28 08:30] LABS: Anion Gap 6 (5-15); BUN 15 mg/dL (7-18); BUN/Creat Ratio 20.4 RATIO (10-20); Chloride 108 mmol/L (98-107); Creatinine, Serum 0.74 mg/dL (0.70-1.30); EST Glomerular Filtration Rate 125 mL/min (>60); Est Glom Filt Rate - Afr Amer 151 mL/min (>60); Estimated Creatinine Clearance 135.64 ml/min; Glucose 86 mg/dL (74-106); Sodium Level 140 mmol/L (136-145)
[2020-09-28] MEDS: Aspirin E.C. 81 MG Tablet PO (09:23)
--- NOTE | 2020-09-28 12:01 | PCM.DC ---
- Discharge Diagnoses Current Active Problems: Current Active and Chronic Problems (Last Reviewed 12/21/18 @ 10:01 by Jannet Marquez) Chest pain (Acute) Elevated BP without diagnosis of hypertension (Acute) Chewing tobacco use (Chronic) Anxiety (Chronic) You will use the following diet at home:: Cardiac Your food should be the consistency of: Regular Your liquids should be the consistency of: Regular/Thin Discharge Activity: - - not to have any contact sports or engage in any aggressive activity o/a of pericarditis. Weight Bearing Status: Weight bearing as tolerated Call your doctor if you observe: Fever of 101 or Higher, Shortness of breath, Swelling in the ankles, Increased palpitations (irregular heartbeat) Instructions: Pericarditis Allergies/Adverse Reactions: Allergies No Known Allergies Allergy (Verified 09/27/20 02:03) Medications to take at Discharge Colchicine 0.6 mg PO BID #60 tab 09/28/20 Ibuprofen [Motrin] 600 mg PO Q8 #90 tab 09/28/20 Pantoprazole Sodium [Protonix] 40 mg PO DAILY #30 tab 09/28/20 The following prescriptions were given: Colchicine 0.6 mg PO BID #60 tab Transmission Status: Pending to [facility] Ibuprofen [Motrin] 600 mg PO Q8 #90 tab Transmission Status: Pending to [facility] Pantoprazole Sodium [Protonix] 40 mg PO DAILY #30 tab Transmission Status: Pending to [facility]30 Primary Care Physician: Deborah Leonard MD [Primary Care Provider] - Please follow up with your Primary Care Physician in: 1-2 weeks Test Results: Test results from this visit will be discussed in further detail at your follow-up appointment, if applicable. Proposed Discharge Date: 09/28/20
--- NOTE | 2020-09-28 12:02 | PCM.DC.SUM ---
Discharge Date and Diagnosis - Problem List Patient Problems: Active and Suspected Problems (Last Reviewed 12/21/18 @ 10:01 by Jannet Marquez) Chest pain (Acute) Elevated BP without diagnosis of hypertension (Acute) Date of Admission: 09/27/20 Date of Discharge: 09/28/20 - Primary Discharge Diagnosis Acute Problems: Active Problems (Last Reviewed 12/21/18 @ 10:01 by Jannet Marquez) Chest pain (Acute) Elevated BP without diagnosis of hypertension (Acute) acute pericarditis - Secondary Discharge Diagnosis Chronic Problems: Chronic Problems (Last Reviewed 12/21/18 @ 10:01 by Jannet Marquez) Chewing tobacco use (Chronic) Anxiety (Chronic) Right groin pain (Chronic) Dermatitis (Chronic) Urinary frequency (Chronic) Kidney stones (Chronic) Back problem (Chronic) Hospital Course and Treatment Imaging Results: Diagnostic Data Chest CTA 09/27/20 02:03 IMPRESSION: Normal CTA chest examination, without a demonstrated pulmonary embolism or arterial dissection. Mild posterior dependent and left lingular atelectasis otherwise no acute cardiopulmonary process. Electronically Signed: Marie Logan MD at 3:32 EST , Service support , cardiology Operations: - - left knee I&D, repait of vastus medialis muscle laceration Procedures: Cardiac catheterization Summary of Care Provided: The patient is a 40 year old M with no significant past medical history was admitted through the ED on 09/27/2020 with a complaint of chest pain was started prior to admission and was sharp and radiating to his neck. Was significantly worsened by lying flat and relieved by sitting forward. He denied having any chest pain in the past and denied any dizziness, lightheadedness or palpitations or recent upper respiratory tract infection though he admitted to a history of diarrhea. Previous times otherwise negative. Troponins x3 were negative and EKG showed no acute ST changes. Cardiology was consulted and patient had cardiac cath on 09/27/2020 which showed clean coronaries. 2D echo showed EF of 65% with no evidence of diastolic dysfunction with no regional wall motion abnormalities noted with pulmonary artery systolic pressure of 30 to 35 mmHg. Patient symptoms were therefore thought to be likely due to acute pericarditis. EKG did not show diffuse ST elevation and ESR and CRP were not elevated. However his symptoms were very classic for acute pericarditis. He was therefore started on colchicine and high-dose ibuprofen. Patient chest pain improved significantly and he was discharged home on 09/28/2020. He was counseled that he should avoid contact sports and should not engage in any aggressive activity for the next 6 weeks on account of his diagnosis of acute pericarditis. He is to follow-up with his primary care doctor and cardiology he was discharged with a prescription for p.o. ibuprofen 600 mg every 8 hours and colchicine 0.6 mg twice daily plus pantoprazole 40 mg daily. Patient seen and examined prior to discharge. He had no complaints. Review of symptoms otherwise negative. Labs and vitals reviewed. HOme Medication reviewed and reconciled. [] o/e: Vital Signs Temp Pulse Resp BP Pulse Ox 98.6 F 71 17 119/71 98 09/28/20 09:14 09/28/20 11:55 09/28/20 09:14 09/28/20 09:14 09/28/20 09:14 General: Alert, Oriented x3, Cooperative HEENT: Atraumatic, PERRLA, EOMI, Normocephalic Oral: Moist Mucosa Neck: Supple, No JVD, Negative Carotid Bruits Lungs: Clear to auscultation, Normal air movement Cardiovascular: Regular rate, Regular Rhythm, Normal S1, Normal S2, No murmurs Abdomen: Bowel Sounds Present, Soft, Non Tender Extremities: No edema, Capillary Refill Less than 3 Seconds Skin: No rashes, No breakdown Musculoskeletal: No Tenderness to Palpation of Joints or Extremities Neurological: Cranial nerves II-XII grossly intact, Neuro grossly intact, Motor Exam 5/5 strength throughout Psych/Mental Status: Normal Affect, Appropriate, Alert and oriented to time, place, person, mood and affect Patient Problems: Active and Suspected Problems (Last Reviewed 12/21/18 @ 10:01 by Jannet Marquez) Chest pain (Acute) Elevated BP without diagnosis of hypertension (Acute) - Physical Exam Vitals/I&O's: Vital Signs Temp Pulse Resp BP Pulse Ox 98.6 F 63 17 119/71 98 09/28/20 09:14 09/28/20 09:14 09/28/20 09:14 09/28/20 09:14 09/28/20 09:14 Oxygen Flow Rate (L/min) 2 Oxygen Delivery Method Room Air Weight: 177 lb 0.499 oz Body Mass Index (BMI) 25.4 Intake and Output for Last 24 Hours 09/26/20 09/27/20 09/28/20 23:59 23:59 23:59 Intake Total 1538.5 / 1938.5 760 / 760 Balance 1538.5 / 1938.5 760 / 760 Laboratory Results 09/27/20 02:10: ESR 2 09/27/20 10:15: C-React Prot Ext Range < 2.90 09/28/20 07:22: WBC 5.4, RBC 4.85, Hgb 13.2, Hct 40.5, MCV 83.5, MCH 27.2, MCHC 32.6, RDW Std Deviation 37.7, RDW Coeff of Mike 12.5, Plt Count 223, MPV 12.2 H, Immature Gran % (Auto) 0.200, Neut % (Auto) 54.7, Lymph % (Auto) 28.8, Carlton % (Auto) 9.6, Eos % (Auto) 6.1 H, Baso % (Auto) 0.6, Absolute Neuts (auto) 3.0, Absolute Lymphs (auto) 1.56, Nucleated RBC % 0 09/28/20 07:22: Sodium 140, Potassium 4.0, Chloride 108 H, Carbon Dioxide 26.0, Anion Gap 6, BUN 15, Creatinine 0.74, Estim Creat Clear Calc 135.64, Est GFR (MDRD) Af Amer 151, Est GFR (MDRD) Non-Af 125, BUN/Creatinine Ratio 20.4 H, Glucose 86, Calcium 9.0 Current Medications Acetaminophen (Acetaminophen 325 Mg Tablet) 650 mg PO Q6H PRN PRN PRN Reason: Pain Score 1-10/Temp > 100.7 F Al Hydroxide/Mg Hydroxide (Mag Hydrox/Al Hydrox/Simeth 30 Ml Udc) 30 ml PO Q6H PRN PRN PRN Reason: Gastric Burning Last Admin: 09/27/20 17:18 Dose: 30 ml Documented by: Albuterol Sulfate (Albuterol 2.5 Mg/3 Ml Vial.Neb.) 2.5 mg INHALATION Q2H PRN PRN PRN Reason: Dyspnea, wheezing Aspirin (Aspirin E.C. 81 Mg Tablet) 81 mg PO DAILY@0800 [facility] Last Admin: 09/28/20 09:23 Dose: 81 mg Documented by: Colchicine (Colchicine 0.6 Mg Tablet) 0.6 mg PO BID [facility] Last Admin: 09/28/20 09:23 Dose: 0.6 mg Documented by: Enoxaparin Sodium (Enoxaparin 80 Mg/0.8 Ml Syringe) 80 mg SC Q12@0600,1800 [facility] Last Admin: 09/28/20 06:13 Dose: 80 mg Documented by: Guaifenesin (Guaifenesin 10 Ml Udc (200mg/10ml)) 20 ml PO Q4H PRN PRN PRN Reason: COUGH Hydralazine HCl (Hydralazine 20 Mg/Ml Vial) 10 mg IV Q4H PRN PRN PRN Reason: SBP > 160 Sodium Chloride () 250 mls @ 15 mls/hr IV .[id number] PRN PRN Reason: Saline Flush Sodium Chloride () 250 mls @ 15 mls/hr IV .[id number] PRN PRN Reason: Additional IVPB Infusion Ibuprofen (Ibuprofen 600 Mg Tablet) 600 mg PO Q8 [facility] Last Admin: 09/28/20 06:11 Dose: 600 mg Documented by: Magnesium Hydroxide (Magnesium Hydroxide 30 Ml Udc) 30 ml PO DAILY PRN PRN PRN Reason: Constipation Morphine Sulfate (Morphine 4 Mg/Ml Syringe) 4 mg IV Q3H PRN PRN PRN Reason: Pain Score 6-10 Last Admin: 09/27/20 05:30 Dose: 4 mg Documented by: Nicotine Polacrilex (Nicotine Polacrilex 2 Mg Gum) 2 mg PO Q2H PRN PRN PRN Reason: nicotive craving Nitroglycerin (Nitroglycerin (Inpatient Use) 0.4 Mg Tab.Subl) 0.4 mg SUBLINGUAL Q5M PRN PRN Reason: CARDIAC/CHEST PAIN Ondansetron HCl (Ondansetron 4 Mg/2 Ml Vial) 4 mg IV Q8H PRN PRN PRN Reason: NAUSEA/VOMITING Last Admin: 09/27/20 05:30 Dose: 4 mg Documented by: Oxycodone HCl (Oxycodone 5 Mg Tablet) 5 mg PO Q4H PRN PRN PRN Reason: Pain Score 4-5 Prochlorperazine Edisylate (Prochlorperazine 10 Mg/2 Ml Vial) 5 mg IV Q4H PRN PRN PRN Reason: Breakthrough Nausea/Vomiting Psyllium Hydrophilic Mucilloid (Psyllium 1 Packet) 1 packet PO DAILY PRN PRN PRN Reason: Constipation Senna/Docusate Sodium (Senna/Docusate Sodium 1 Tablet) 2 tablet PO BID PRN PRN PRN Reason: Constipation Sodium Chloride (0.9% Saline Lock 10 Ml Syringe) 10 - 40 ml IV UD PRN PRN Reason: SALINE FLUSH Last Admin: 09/27/20 05:32 Dose: 20 ml Documented by: Temazepam (Temazepam 15 Mg Capsule) 15 mg PO QHS PRN PRN PRN Reason: INSOMNIA Throat Lozenges (Benzocaine/Menthol 1 Lozenge) 1 lozenge MUCOUS MEM Q2H PRN PRN PRN Reason: SORE THROAT Discharge Diet: Low fat/ Low Cholesterol Discharge Activity: - - not to have any contact sports or engage in any aggressive activity o/a of pericarditis. Weight Bearing Status: Weight bearing as tolerated Call your doctor if you observe: Fever of 101 or Higher, Shortness of breath, Swelling in the ankles, Increased palpitations (irregular heartbeat) Home Medications: Medications to take at Discharge Colchicine 0.6 mg PO BID #60 tab 09/28/20 Ibuprofen [Motrin] 600 mg PO Q8 #90 tab 09/28/20 Pantoprazole Sodium [Protonix] 40 mg PO DAILY #30 tab 09/28/20 Following Prescriptions Were Given to Patient: Colchicine 0.6 mg PO BID #60 tab Transmission Status: Received by [facility] Ibuprofen [Motrin] 600 mg PO Q8 #90 tab Transmission Status: Received by [facility] Pantoprazole Sodium [Protonix] 40 mg PO DAILY #30 tab Transmission Status: Received by [facility] Primary Care Physician: Deborah Leonard MD [Primary Care Provider] - Please follow up with your Primary Care Physician in: 1-2 weeks Patient Instructions: Pericarditis Disposition: Home Minutes spent on discharge:: 45 Patient Condition:: Stable Medical Necessity - Tobacco Use Smoking Status: Current some day smoker Tobacco Use: Chew Meaningful Use Info Meaningful Use Diagnoses (Choose all that apply): None applicable Inpatient E&M: 948[address] [facility]
--- NOTE | 2020-09-29 16:11 | CL.D_ITS ---
Patient Name: TYRONE CHAUDHARY Study Date: 09/27/2020 Performing: Darshan Santoro MD Ht: 70 inches 178 cm : 1980 Wt: 176.6 lbs 80 kg Age: 40 Gender: male BSA: 1.98 PROCEDURE(S) PERFORMED [id number] CLINICAL PROFILE AND INDICATIONS Indications: ACS > 24 hrs Heart Failure: None Stress/Imaging Stress/Image Study Performed: No CAD Presentations: Non-STEMI. Symptom onset Date/Time: Time Not Available CONCLUSIONS Normal coronary arteries RECOMMENDATIONS DESCRIPTION OF PROCEDURE The patient arrived to the procedure lab. The risks and benefits of the procedure as well as a full d escription of our services here and current unavailability of surgical backup were fully explained to the patient and/or their significant other prior to the catheterization. The Timeout was completed, verifying the correct patient and procedure. The patient's procedural site was prepped and draped in the usual fashion. Local anesthetic was given subcutaneously to right radial region with Lidocaine 2% . Using a modified Seldinger technique, arterial access was obtained via the right radial artery, a 6 Fr sheath was inserted. Left Coronary Artery selective angiography was performed in multiple views u sing a 5 Fr. JL3.5 catheter. LV to AO pullback pressures were then recorded. Right Coronary Artery se lective angiography was then performed in multiple views using a 5 Fr. JR 4 catheter.The arterial she ath was pulled and a TR Band was applied for hemostasis CORONARY ANGIOGRAPHY DOMINANCE: Right Dominant LEFT HEART ASSESSMENT Left Ventricular Ejection Fraction: Not assessed Normal Left Ventricular End Diastolic Pressure LEFT MAIN: Angiographically normal LEFT ANTERIOR DESCENDING ARTERY: Angiographically normal CIRCUMFLEX ARTERY: Angiographically normal RIGHT CORONARY ARTERY: Angiographically normal VALVE FINDINGS: No Aortic Valve Stenosis COMPLICATIONS No Complications PROCEDURE MEDICATIONS Fentanyl 50 mcg IV Versed 1 mg IV Oxygen: 2 L/min via nasal cannula Heparin given IA 09/27/2020 12:35:33 Verapamil 2.5mg, Ntg 100mcgs, 3000 units of Heparin given IA 09/27/2020 12:35:33 SUMMARY OF HEMODYNAMIC DATA Time AIR REST ECG 12:18:34 AO 104/75 (90) SA 12:37:39 LV 149/-12, 14 12:41:41 LV 126/-1, 18 12:41:50 LV 129/-2, 17 12:41:56 LVp 127/3, 12 12:42:44 AOp 136/78 (101) 12:42:49 Signed By Darshan Santoro MD On 09/29/2020 4:10:15 PM Darshan Santoro MD
== END 2020-09-28 12:02 | disposition home or self-care (01) ==
LOC: ED 03:22 → ICU 03:45 → PCU 13:12
PROVIDERS: Admitting Provider Family Medicine; Emergency Provider Emergency Medicine; PCP Internal Medicine; Visit Provider Student in an Organized Health Care Education/Training Program
DX: I30.9 Acute pericarditis, unspecified (principal); R07.89 Other chest pain; R03.0 Elevated blood-pressure reading, without diagnosis of hypertension; R06.02 Shortness of breath; R53.83 Other fatigue; F17.220 Nicotine dependence, chewing tobacco, uncomplicated; Z86.711 Personal history of pulmonary embolism; Z82.49 Family history of ischemic heart disease and other diseases of the circulatory system; R94.31 Abnormal electrocardiogram [ECG] [EKG]; R00.1 Bradycardia, unspecified; I08.1 Rheumatic disorders of both mitral and tricuspid valves; F41.9 Anxiety disorder, unspecified
CPT/HCPCS: 71275; 80048; 80053; 80061; 83690; 83735; 83880; 84484; 85025; 85610; 85652; 85730; 86140; 87635; 93005; 93306; 93454; 96361; 96365; 96372; 96375; 96376; 99152; 99153; 99218; 99251; 99285; 99406; J7030; Q9967; 90686; A4216; C1769; C1894; G0378; G0463; J2405; U0002

== ENCOUNTER 2021-11-25 08:51 | Outpatient (CLI) | payer MEDICAID, SELFPAY ==
[2021-11-25 12:19] LABS: Absolute Lymphocyte Count 1.83 X10^3/uL (0.83-4.51); Absolute Neutrophil Count 2.8 X10^3/uL (2.0-7.7); Basophil# 0.04 X10^3/uL; Basophil% 0.7 % (0-1); Eosinophil# 0.27 X10^3/uL; Eosinophils% 4.9 % (0-5); Hematocrit 46.2 % (40-54); Hemoglobin 15.5 g/dL (13.0-16.5); Lymphocyte # 1.83 X10^3/ul (0.83-4.51); Lymphocyte % 33.2 % (19-41); Mean Corp Hgb Conc 33.5 g/dL (32-36); Mean Corpuscular Hgb 28.5 pg (27.0-32.0); Mean Corpuscular Volume 85.1 fL (80-94); Mean Platelet Vol. 12.7 fl (6.2-12.0); Monocyte% 10.9 % (0-10); NRBC Flagged by Analyzer 0 % (0-5); Neutrophil # 2.76 X10^3/uL (2.7-7.7); Neutrophil % 49.9 % (47-70); Platelet Count 230 K/mm3 (150-450); RBC Distribution Width CV 12.7 % (11.6-14.6); RBC Distribution Width SD 39.4 fl (35.1-43.9); Red Blood Count 5.43 M/mm3 (4.6-6.2); White Blood Count 5.5 K/mm3 (4.4-11.0)
[2021-11-25 13:01] LABS: ALB/GLOB Ratio 1.2 RATIO (0.9-2.4); AST(SGOT) 19 U/L (15-37); Alanine Aminotransfer ALT/SGPT 37 U/L (16-61); Albumin, Serum 4.3 g/dL (3.2-5.0); Alkaline Phosphatase 77 U/L (45-117); Anion Gap 3 (5-15); BUN 17 mg/dL (7-18); BUN/Creat Ratio 22.5 RATIO (10-20); Calcium,Total 9.2 mg/dL (8.5-10.1); Chloride 106 mmol/L (98-107); Cholesterol 168 mg/dL (200); Creatinine, Serum 0.76 mg/dL (0.70-1.30); EST Glomerular Filtration Rate 120 mL/min (>60); Est Glom Filt Rate - Afr Amer 145 mL/min (>60); Globulin 3.7 g/dL (2.2-4.2); Glucose 88 mg/dL (74-106); High Density Lipoprotein 51 mg/dL; PSA,Total - Annual Screen 0.54 ng/mL (0.00-4.00); Sodium Level 138 mmol/L (136-145); Triglycerides 66 mg/dL; Very Low Density Lipoprotein 13 mg/dL (5-40)
== END 2021-11-25 23:59 | disposition home or self-care (01) ==
LOC: BIMLAB 08:52
PROVIDERS: PCP Internal Medicine; Referring Provider Nurse Practitioner Family; Visit Provider Nurse Practitioner Family
DX: F41.9 Anxiety disorder, unspecified (principal); G25.0 Essential tremor; R35.1 Nocturia
CPT/HCPCS: 84153; 36415; 80053; 80061; 84443; 85025; G0103

== ENCOUNTER 2022-04-28 08:21 | Emergency (ER) | payer MEDICAID, SELFPAY ==
[2022-04-28 08:23] VITALS: BP 122/78; PULSE 48; RESP 16; TEMP 36.6; O2SAT 100; BMI 24.3
--- NOTE | 2022-04-28 08:59 | EX.ED.GUMALE ---
HPI History of Present Illness Chief Complaint: Male Pain/Injury Informant: patient Pain Onset: Days (3) Context: Gradual Onset Timing: Continuous Worsened by: Movement, ambulation Relieved by: Rest Narrative Narrative: Patient was noticed with right inguinal pain that has been constant for the last 3 days. Patient states it came on gradually. Patient describes pain as constant aching but sharp at times. Patient states it is worse with movement and ambulation. Patient states it is better with rest. Patient denies any trauma or injury. Patient denies any testicular pain. Patient denies any fevers or chills. Patient denies any nausea or vomiting. Patient states he had a right inguinal herniorrhaphy several years ago. [facility] Medical History Acute pericarditis (09/27/20) Anxiety Back problem Chewing tobacco use Dermatitis Elevated BP without diagnosis of hypertension Essential tremor History of non-ST elevation myocardial infarction (NSTEMI) (09/27/20) History of pulmonary embolus (PE) (10/21/13) Kidney stones Nocturia Urinary frequency Home Medications propranolol 10 mg tablet 10 mg PO BID #60 tabs 11/25/21 [Rx Last Taken Unknown] Allergy/AdvReac Type Severity Reaction Status Date / Time No Known Allergies Allergy Verified 04/28/22 08:26 Family History Aunt Cancer CVA (cerebral vascular accident) Uncle Cancer Father Myocardial infarction Heart disease Mother Kidney disease Skin cancer Surgical History History of knee surgery History of left heart catheterization (09/27/20) Social History Smoking Status: Current every day smoker tobacco type: cigarettes Smokeless tobacco user: chewing tobacco alcohol intake: never substance use type: does not use what type of physical activity do you participate in: none ROS ROS ED Constitutional Constitutional ED: Denies chills or fever(s) Eyes Eyes: Denies blurry vision or change in vision ENT ENT ED: Denies rhinorrhea or sore throat Cardiovascular Cardiovascular: Denies chest pain or palpitations Respiratory/Chest Respiratory/Chest: Denies cough or dyspnea Gastrointestinal Gastrointestinal: Denies nausea or vomiting Genitourinary Genitourinary ED: Denies dysuria or hematuria Musculoskeletal Musculoskeletal: Reports back pain; Denies neck pain Integumentary Denies abscess or rash Neurologic Neurologic: Denies headache(s) or weakness Allergic/Immunologic Allergic/Immunologic ED: Denies mouth swelling or urticaria EXAM Physical Exam Const Vital Signs: 04/28/22 08:23 Temperature 97.8 F Temperature Source Temporal Pulse Rate 48 L Respiratory Rate 16 Blood Pressure 122/78 H Blood Pressure Mean 92 Pulse Ox 100 Oxygen Delivery Method Room Air Positive well nourished and well developed General Appearance ED: well developed and NAD HEENT Reports moist mucous membranes Neck supple and no JVD Resp normal respiratory effort and clear to auscultation bilaterally Cardio regular rate, regular rhythm and no murmurs GI normal to inspection, nondistended, normoactive bowel sounds and non-tender Palpation: soft Narrative: There is some right inguinal tenderness. I do not appreciate a hernia. There is no testicular swelling or tenderness. There is no penile tenderness or lesions. There is no urethral discharge or drainage. Extremity normal to inspection General Extremety ED: Negative for edema or tenderness General Extremity: Negative for edema Neuro oriented x3, CN's II-XII intact bilaterally and no sensory deficits noted Sensorium / Orientation: alert Motor Exam: strength 5/5 throughout Psych mental status grossly normal Skin no rashes or lesions noted MDM MDM MDM Narrative Medical decision making narrative: CBC was within normal limits. Comprehensive metabolic profile was within normal limits. CT scan of the abdomen and pelvis was obtained. There is a small umbilical hernia containing fat. There are some bilateral inguinal lymph nodes. Urinalysis does not show any evidence of urinary tract infection. Patient was advised of his findings. Patient was instructed to take Tylenol or ibuprofen as needed for pain. Patient was instructed to follow-up with his primary care physician in 5 to 7 days. Patient understood and was agreeable with the plan. All questions were answered. Lab Data Attestation: I reviewed the patient's lab results. Labs: Laboratory Results - last 24 hr 04/28/22 04/28/22 04/28/22 09:15 09:15 09:40 WBC 7.0 RBC 4.96 Hgb 13.9 Hct 41.9 MCV 84.5 MCH 28.0 MCHC 33.2 RDW Std Deviation 38.2 RDW Coeff of Mike 12.4 Plt Count 227 MPV 12.0 Immature Gran % (Auto) 0.100 Neut % (Auto) 61.2 Lymph % (Auto) 25.5 [place] % (Auto) 9.8 Eos % (Auto) 3.0 Baso % (Auto) 0.4 Absolute Neuts (auto) 4.3 Absolute Lymphs (auto) 1.77 Nucleated RBC % 0 Sodium 141 Potassium 4.0 Chloride 106 Carbon Dioxide 28.0 Anion Gap 7 BUN 14 Creatinine 0.73 Estim Creat Clear Calc 136.11 Est GFR (MDRD) Af Amer 151 Est GFR (MDRD) Non-Af 125 BUN/Creatinine Ratio 19.2 Glucose 90 Calcium 8.9 Total Bilirubin 0.30 AST 25 ALT 43 Alkaline Phosphatase 79 Total Protein 7.4 Albumin 3.8 Globulin 3.6 Albumin/Globulin Ratio 1.1 Urine Color Yellow Urine Clarity Clear Urine pH 6.0 Ur Specific Slaughters 1.025 Urine Protein Negative Urine Glucose (UA) Normal Urine Ketones Negative Urine Occult Blood Negative Urine Nitrite Negative Urine Bilirubin Negative Urine Urobilinogen Normal Ur Leukocyte Esterase Negative Urine RBC 0 SEEN Urine WBC 0 SEEN Ur Squamous Epith Cells 0 SEEN Urine Bacteria 0 SEEN Urine Mucus 0 SEEN Radiography Diagnostic Testing: Clinical Impression(s) from Imaging Studies Abdomen/Pelvis CT 04/28/22 09:05 IMPRESSION: Small umbilical hernia containing fat. Electronically Signed: Samir Cordero MD at 9:49 EDT Reading Location ID and State: [facility] / [place] , Service support , Discharge Plan Triage Chief Complaint: Male Pain/Injury ED Provider: Miguel Gilman Dx/Rx/DC Orders Clinical Impression: Inguinal lymphadenitis Instructions: ED Adenitis Cervical No Abx Tx Prescriptions: No Action propranolol 10 mg tablet 10 mg PO BID Qty: 60 1RF Primary Care Provider: Deborah Leonard Referrals: Deborah Leonard MD [Primary Care Provider] - 5-7 Days Disposition Disposition: Home, Self Care
--- NOTE | 2022-04-28 09:05 | CT_ITS ---
STUDY: CT ABDOMEN AND PELVIS WITHOUT CONTRAST REASON FOR EXAM: Male, 41 years old. Right inguinal pain. History of prior right inguinal hernia repair. RADIATION DOSAGE (If Supplied By Facility): CTDIvol = ( 7.23 ) mGy, DLP = ( 402.78 ) mGycm TECHNIQUE: Transaxial images were obtained from the dome of the diaphragm to the symphysis pubis without oral contrast, and without intravenous contrast. Sagittal and coronal images were reconstructed. Individualized dose optimization techniques were used for this CT. COMPARISON: None. FINDINGS: Mild degree of linear scarring at the left lung base. The visualized portions of the heart are within normal limits. Normal liver. Normal gallbladder and extrahepatic biliary system. Normal spleen. Normal pancreas. Normal bilateral adrenal glands. Normal right kidney. Normal left kidney. Normal visualized stomach. Normal small intestine. Scattered sigmoid diverticula. The appendix is visualized and appears normal. Normal abdominal aorta. Normal inferior vena cava. There is borderline retroperitoneal lymphadenopathy with enlarged nodes no greater than 10mm in the short axis diameter. Normal urinary bladder. There is a small umbilical hernia containing fat. Small benign-appearing bilateral inguinal lymph nodes. Normal osseous structures. CT/Abdomen/Pelvis without Cont IMPRESSION: Small umbilical hernia containing fat. Electronically Signed: Samir Cordero MD at 9:49 EDT ,
[2022-04-28] MEDS: Ketorolac 30 MG/ML Syringe IV (09:17)
[2022-04-28 09:27] LABS: Absolute Lymphocyte Count 1.77 X10^3/uL (0.83-4.51); Absolute Neutrophil Count 4.3 X10^3/uL (2.0-7.7); Basophil# 0.03 X10^3/uL; Basophil% 0.4 % (0-1); Eosinophil# 0.21 X10^3/uL; Hematocrit 41.9 % (40-54); Hemoglobin 13.9 g/dL (13.0-16.5); Lymphocyte # 1.77 X10^3/ul (0.83-4.51); Lymphocyte % 25.5 % (19-41); Mean Corp Hgb Conc 33.2 g/dL (32-36); Mean Corpuscular Volume 84.5 fL (80-94); Monocyte# 0.68 X10^3/uL; Monocyte% 9.8 % (0-10); NRBC Flagged by Analyzer 0 % (0-5); Neutrophil # 4.25 X10^3/uL (2.7-7.7); Neutrophil % 61.2 % (47-70); Platelet Count 227 K/mm3 (150-450); RBC Distribution Width CV 12.4 % (11.6-14.6); RBC Distribution Width SD 38.2 fl (35.1-43.9); Red Blood Count 4.96 M/mm3 (4.6-6.2)
[2022-04-28 09:42] LABS: ALB/GLOB Ratio 1.1 RATIO (0.9-2.4); AST(SGOT) 25 U/L (15-37); Alanine Aminotransfer ALT/SGPT 43 U/L (16-61); Albumin, Serum 3.8 g/dL (3.2-5.0); Alkaline Phosphatase 79 U/L (45-117); Anion Gap 7 (5-15); BUN 14 mg/dL (7-18); BUN/Creat Ratio 19.2 RATIO (10-20); Calcium,Total 8.9 mg/dL (8.5-10.1); Chloride 106 mmol/L (98-107); Creatinine, Serum 0.73 mg/dL (0.70-1.30); EST Glomerular Filtration Rate 125 mL/min (>60); Est Glom Filt Rate - Afr Amer 151 mL/min (>60); Estimated Creatinine Clearance 136.11 ml/min; Globulin 3.6 g/dL (2.2-4.2); Glucose 90 mg/dL (74-106); Protein, Total 7.4 g/dL (6.4-8.2); Sodium Level 141 mmol/L (136-145)
[2022-04-28 09:47] LABS: Bacteria 0 SEEN /hpf (None Seen); Mucous, Urine 0 SEEN /hpf (<or=2+); Red Blood Cells-Urine 0 SEEN /hpf (0-5); Squamous Epithelial Cells - UA 0 SEEN /hpf (0-5); White Blood Cells 0 SEEN /hpf (0-5)
[2022-04-28 09:55] LABS: Color, Urine Yellow (Yellow); Glucose, Dipstick Normal (Normal); Ketone-Dipstick Negative (Negative); Leukocyte Esterase-Dipstick Negative /ul (Negative); Nitrite-Dipstick Negative (Negative); Occult Blood-Urine Negative /ul (Negative); Protein-Dipstick Negative (Negative); Specific Gravity, Urine 1.025 (1.002-1.030); Urine Bilirubin Dipstick Negative (Negative); Urine Clarity Clear (Clear); Urine Urobilinogen Normal (Normal)
== END 2022-04-28 10:33 | disposition home or self-care (01) ==
PROVIDERS: Emergency Provider Emergency Medicine; PCP Internal Medicine; Visit Provider Emergency Medicine
DX: I88.9 Nonspecific lymphadenitis, unspecified (principal); F17.210 Nicotine dependence, cigarettes, uncomplicated; I25.2 Old myocardial infarction; Z86.711 Personal history of pulmonary embolism
CPT/HCPCS: 74176; 80053; 81001; 85025; 96374; 99283; A4216

== ENCOUNTER → 2022-05-01 | Outpatient (CLI) | payer MEDICAID, SELFPAY | END | disposition home or self-care (01) | LOC: LABSPEC 08:21 | PROVIDERS: PCP Internal Medicine; Referring Provider Nurse Practitioner Family; Visit Provider Nurse Practitioner Family | DX: R59.1 Generalized enlarged lymph nodes (principal) | CPT/HCPCS: 87635; U0003; U0005 ==

== ENCOUNTER 2022-09-09 15:17 | Emergency (ER) | payer MEDICAID, SELFPAY ==
[2022-09-09 15:18] VITALS: BP 149/105; PULSE 84; RESP 18; TEMP 35.6; O2SAT 95; BMI 23.6
--- NOTE | 2022-09-09 15:31 | EX.ED.GENINJ ---
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 He was scraping glue off a piece of metal and the razor blade slipped and cut the dorsum of his dominant right hand index finger. Bleeding was controlled with paper towels. He states his last tetanus shot he thinks was about a year ago but definitely within 5 years because he cuts himself not infrequently at work. No numbness tingling. No loss of function or difficulty moving finger. Compression made this better nothing really makes it worse. Patient has no chronic medical conditions. No history of diabetes or coagulopathy. Denies routine medications No allergies PFSH PFS Medical History Acute pericarditis (09/27/20) Anxiety Back problem Cervicalgia Chewing tobacco use Dermatitis Elevated BP without diagnosis of hypertension Essential tremor History of non-ST elevation myocardial infarction (NSTEMI) (09/27/20) History of pulmonary embolus (PE) (10/21/13) Kidney stones Nocturia Urinary frequency Home Medications ibuprofen 600 mg tablet 600 mg PO TID PRN pain #30 tabs 04/30/22 [Rx Last Taken Unknown] Allergy/AdvReac Type Severity Reaction Status Date / Time No Known Allergies Allergy Verified 09/09/22 15:18 Family History Aunt Cancer CVA (cerebral vascular accident) Uncle Cancer Father Myocardial infarction Heart disease Mother Kidney disease Skin cancer Surgical History History of knee surgery History of left heart catheterization (09/27/20) Social History Smoking Status: Current every day smoker tobacco type: cigarettes Smokeless tobacco user: chewing tobacco alcohol intake: never substance use type: does not use what type of physical activity do you participate in: none ROS ROS ED Constitutional Constitutional ED: Denies fever(s) Musculoskeletal Musculoskeletal: Reports other Details: Denies pain. Integumentary Reports other Details: Laceration as in history of present illness. Neurologic Neurologic: Denies paresthesias or weakness Endocrine Endocrinology: Denies polydipsia or polyuria EXAM Physical Exam Narrative Exam Narrative: Physical exam patient shows patient to be in no acute distress. He is sitting calmly in the bed. HEENT shows no sign of trauma. Breathing is easy and unlabored Abdomen is benign He has a laceration on the dorsum of his right index finger just a bit past his MCP joint. No active bleeding. I do not see any tendon at this point. Extension and flexion is completely normal. Sensation is normal in the area and distally in the finger also. Normal distal capillary refill also. No other sign of injury on the hand. Patient's neuro function is intact distally. Const Vital Signs: 09/09/22 15:18 Temperature 96.1 F L Temperature Source Temporal Pulse Rate 84 Respiratory Rate 18 Blood Pressure 149/105 H Blood Pressure Mean 119 Pulse Ox 95 Oxygen Delivery Method Room Air Positive well nourished and well developed General Appearance ED: well developed PROC Procedures Lacerations Right index finger dorsal surface: Depth: Skin Shape: Flap Prep: Sterile Conditions and Chlorhexadine Laceration repair: Local and Wound explored Irrigated (ml): 100 Number of Sutures/Layne: 4 Suture Information: Ethilon, Simple and 4-0 Comment: Area was anesthetized and scrubbed cleaned irrigated. I looked at it through bloodless field. This laceration looks like it went in at an angle and created a flap. I do not see any indication of visible or injured extensor tendon. 4 sutures was placed. On the lateral aspect the skin was quite thin but I think it should still hold. Sutures out in 14 days. We discussed signs of infection. Range of motion was normal after suturing. MDM MDM MDM Narrative Medical decision making narrative: Patient presents with acute laceration. No sign of neurovascular injury. Mild oozing from the wound after cleaning. This was easily stopped with just compression and suturing. We discussed risk benefits and reasons to follow-up. We discussed signs of infection. I recommend he keep the sutures in close to 14 days due to being very physically active to avoid reopening this laceration. Discharge Plan Triage Chief Complaint: Laceration Other Complaint: Upper Extremity Injury ED Provider: William Hill Dx/Rx/DC Orders Clinical Impression: Laceration of right index finger, Suture of skin wound Instructions: ED Laceration, Hand: All Closures Prescriptions: No Action ibuprofen 600 mg tablet 600 mg PO TID PRN (Reason: pain) Qty: 30 0RF Rx Instructions: take with food Primary Care Provider: Deborah Leonard Referrals: Deborah Leonard MD [Primary Care Provider] - 10-14 Days suture removal Disposition Disposition: Home, Self Care
[2022-09-09] MEDS: Lidocaine 2% (20 ml mdv) 20 ML Vial INFILT (15:40)
== END 2022-09-09 16:08 | disposition home or self-care (01) ==
PROVIDERS: Emergency Provider Emergency Medicine; PCP Internal Medicine; Visit Provider Emergency Medicine
DX: S61.210A Laceration without foreign body of right index finger without damage to nail, initial encounter (principal); F17.210 Nicotine dependence, cigarettes, uncomplicated; I25.2 Old myocardial infarction; Z86.711 Personal history of pulmonary embolism; X58.XXXA Exposure to other specified factors, initial encounter
CPT/HCPCS: 12001; 99283

== ENCOUNTER → 2023-02-10 | Outpatient (CLI) | payer MEDICAID, SELFPAY ==
[2023-02-10 12:26] LABS: Absolute Lymphocyte Count 1.59 X10^3/uL (0.83-4.51); Absolute Neutrophil Count 5.9 X10^3/uL (2.0-7.7); Basophil# 0.03 X10^3/uL; Basophil% 0.4 % (0-1); Eosinophil# 0.04 X10^3/uL; Eosinophils% 0.5 % (0-5); Hematocrit 47.3 % (40-54); Hemoglobin 15.4 g/dL (13.0-16.5); Lymphocyte # 1.59 X10^3/ul (0.83-4.51); Lymphocyte % 19.8 % (19-41); Mean Corp Hgb Conc 32.6 g/dL (32-36); Mean Corpuscular Hgb 27.4 pg (27.0-32.0); Mean Platelet Vol. 12.3 fl (6.2-12.0); Monocyte# 0.47 X10^3/uL; Monocyte% 5.9 % (0-10); NRBC Flagged by Analyzer 0 % (0-5); Neutrophil # 5.87 X10^3/uL (2.7-7.7); Platelet Count 277 K/mm3 (150-450); RBC Distribution Width CV 12.7 % (11.6-14.6); RBC Distribution Width SD 38.9 fl (35.1-43.9); Red Blood Count 5.63 M/mm3 (4.6-6.2)
[2023-02-10 12:36] LABS: ALB/GLOB Ratio 1.1 RATIO (0.9-2.4); AST(SGOT) 27 U/L (15-37); Alanine Aminotransfer ALT/SGPT 62 U/L (16-61); Albumin, Serum 4.4 g/dL (3.2-5.0); Alkaline Phosphatase 98 U/L (45-117); Anion Gap 5 (5-15); BUN 18 mg/dL (7-18); BUN/Creat Ratio 21.3 RATIO (10-20); Calcium,Total 9.7 mg/dL (8.5-10.1); Chloride 105 mmol/L (98-107); Cholesterol 188 mg/dL (200); Creatinine, Serum 0.84 mg/dL (0.70-1.30); EST Glomerular Filtration Rate 105 mL/min (>60); Est Glom Filt Rate - Afr Amer 127 mL/min (>60); Globulin 3.9 g/dL (2.2-4.2); Glucose 110 mg/dL (74-106); High Density Lipoprotein 47 mg/dL; Potassium 4.4 mmol/L (3.5-5.1); Protein, Total 8.3 g/dL (6.4-8.2); Sodium Level 137 mmol/L (136-145); Triglycerides 109 mg/dL; Very Low Density Lipoprotein 22 mg/dL (5-40)
== END | disposition home or self-care (01) ==
LOC: BIMLAB 10:45
PROVIDERS: PCP Internal Medicine; Referring Provider Internal Medicine; Visit Provider Internal Medicine
DX: I10 Essential (primary) hypertension (principal)
CPT/HCPCS: 36415; 80053; 80061; 85025

== ENCOUNTER 2023-09-21 07:02 | Day surgery (SDC) | payer MEDICAID, SELFPAY ==
--- OUTSIDE RECORDS SUMMARY | 2023-09-21 07:10 | XMS RPT_ITS | CCD ---
Author Name Unknown Address [address] [place] [address] Organization [facility] Care Team Providers Care Clinical Lab Specialist Name Role Phone DOCTOR, NO F. Unavailable Unavailable TIFFANY PARKS Unavailable Unavailable CARLOS GARNER MD Primary Care Physician [phone] HERMELINDA WRIGHT, JEAN-PIERRE Goodrich Attending Unavailable CARLOS GARNER MD Primary Care Unavailab BETY Boyle MD Attending Unavail able CARLOS GARNER MD Primary Care Unavailab le Problems Problem Classification Problem Date Documented Da te Episodic/Chronic Open wounds of extremities (1 source) Laceration of thumb; Translations: [Laceration without foreign body of unspecified thumb without damage to nail, initial encounter] Onset: 03-09-2023 Episodic Superficial injury; contusion (1 source) Contusion of thumb; Translations: [Contusion of unspecified thumb without damage to nail, initial encounter] Onset: 05-24-2023 Episodic Results Test Name Value Interpretation Reference Range Facil ity Vital Signs Date Time Vital Sign Value Performing Clinician Elizabethi akanksha 05-24-2023 16:51-0400 Body temperature 98.96 [degF] BETY LEIGH MD [facility] 05-24-2023 16:51-0400 Diastolic Blood Pressure Non-Invasive 98 1 BETY LEIGH MD [facility] 05-24-2023 16:51-0400 Heart rate 68 /min BETY LEIGH MD [facility] 05-24-2023 16:51-0400 Respiratory rate 18 /min BETY LEIGH MD [facility] 05-24-2023 16:51-0400 Systolic Blood Pressure Non-Invasive 148 1 BETY LEIGH MD [facility] 03-09-2023 17:19-0400 Body height 180 cm JEAN-PIERRE SHEN MD [facility] 03-09-2023 17:19-0400 Body temperature 98.24 [degF] JEAN-PIERRE SHEN MD [facility] 03-09-2023 17:19-0400 Body weight 77 kg JEAN-PIERRE SHEN MD [facility] 03-09-2023 17:19-0400 Diastolic Blood Pressure Non-Invasive 92 1 JEAN-PIERRE SHEN MD [facility] 03-09-2023 17:19-0400 Heart rate 66 /min JEAN-PIERRE SHEN MD [facility] 03-09-2023 17:19-0400 Respiratory rate 16 /min JEAN-PIERRE SHEN MD [facility] 03-09-2023 17:19-0400 Systolic Blood Pressure Non-Invasive 136 1 JEAN-PIERRE SHEN MD [facility] Encounters Encounter Date Encounter Type Care Provider Facility Start: 05-24-2023 End: 05-24-2023 Emergency department patient visit BETY LEIGH MD Facility:B Start: 05-24-2023 End: 05-24-2023 Emergency department patient visit BETY LEIGH MD [facility] Start: 03-09-2023 End: 03-09-2023 Emergency department patient visit JEAN-PIERRE SHEN MD Facility:[facility] Start: 03-09-2023 End: 03-09-2023 Emergency department patient visit JEAN-PIERRE SHEN MD [facility] Start: 01-22-2018 End: 01-22-2018 Emergency department patient visit NO Shona Facility:[facility] Immunizations Immunization Date Immunization Notes Care Provider Fa cility 12-23-2020 tetanus toxoid, redu lan diphtheria toxoid, and acellular pertussis vaccine, adsorbed JEAN-PIERRE SHEN MD [facility] Payers Date Payer Category Payer Unknown [id number] 2018 Unknown [id number] 1980 Unknown [id number] 1980 Unknown [id number] Social History Date Type Detail Facility Tobacco smoking status Smokes to bacco daily (finding) [facility] Sex Assigned At Sex [facility] Functional Status Date Assessment Result Facility 03-09-2023 Functional Status ID band on, Call device within reach, Bed in low position, Wheels locked, Upper/Half-Length side-rails up, Phone within reach, personal items within reach [facility] Mental Status Date Assessment Result Facility 03-09-2023 Mental Status Oriented x 4 [facility] Discharge instructions 05-24-2023 Note Date & Type Note Facility 05-24-2023 Hospital Discharg e instructions Patient Education 05/24/2023 17:41:40 Finger Contusion Finger Contusion You have a contusion. This is also called a bruise. There is swelling and some bleeding under the skin, but no broken bones. This injury generally takes a few days to a few weeks to heal. During that time, the bruise will typically change in color from reddish, to purple-blue, to greenish-yellow, then to yellow-brown. A finger contusion may be treated with a splint or edmundo tape (taping the injured finger to the one next to it for support). Minor contusions likely will need no other treatment. Home care Elevate the hand to reduce pain and swelling. As much as possible, sit or lie down with the hand raised about the level of your heart. This is especially important during the first 48 hours. Ice the finger to help reduce pain and swelling. Wrap a cold source (ice pack or ice cubes in a plastic bag) in a thin towel. Apply to the bruised finger for 20 minutes every 1 to 2 hours the first day. Continue this 3 to 4 times a day until the pain and swelling goes away. If edmundo tape was applied and it becomes wet or dirty, change it. You may replace it with paper, plastic, or cloth tape. Before taping, put a thin strip of cotton or gauze between the fingers to absorb sweat. This will help prevent any breakdown of skin or fungal infections. Unless another medicine was prescribed, you can take acetaminophen, ibuprofen, or naproxen to control pain. (If you have chronic liver or kidney disease or ever had a stomach ulcer or gastrointestinal bleeding, talk with your doctor before using these medicines.) Follow up Follow up with your healthcare provider, or as advised. Call if you are not improving within 1 to 2 weeks. When to seek medical advice Call your healthcare provider right away if you have any of the following: Increased pain or swelling Hand or arm becomes cold, blue, numb or tingly Signs of infection: Warmth, drainage, or increased redness or pain around the bruise Inability to move the injured finger or hand Frequent bruising for unknown reasons Your fingernail becomes raised and it appears that there is blood accumulating under the nail. This may need to be drained. [phone] [employer]. [address] [place] [address], [place] [address]. All rights reserved. This information is not intended as a substitute for professional medical care. Always follow your healthcare professional's instructions. Follow Up Care 05/24/2023 16:51:33 With:CARLOS GARNER MD Address: [address] [place] [address] [place] [address]- [phone] When:2-4 days [facility] Emergency department Discharge summary 05-24-2023 Note Date & Type Note Facility 05-24-2023 Emergency department Discharge summary Discharge Instructions Thank you for allowing [facility] to assist you with your healthcare needs. The following is important discharge information regarding your hospital visit. Diagnosis from Today's Visit Contusion of thumb Thumb injury - Minor What to Do Next Instructions from Your Care Team No qualifying data available. Post Acute Orders No qualifying data available. You Need to Schedule the Following Appointments Follow Up with CARLOS GARNER MD When Within 2-4 days Where: [place] [address]- [phone] Allergies NKA Medications Please ask your primary doctor or pharmacist before taking any other medication not listed, including over the counter drugs, herbal medications, vitamins and or supplements as they may interact with your home medications. Please take this list to your next doctor s visit. Bring all medications you take, including over the counter medications, herbals and other supplements with you to your doctor s visit. Patients and families are reminded to discard old lists and to update any records with all medication providers or retail pharmacies. Education Materials Finger Contusion You have a contusion. This is also called a bruise. There is swelling and some bleeding under the skin, but no broken bones. This injury generally takes a few days to a few weeks to heal. During that time, the bruise will typically change in color from reddish, to purple-blue, to greenish-yellow, then to yellow-brown. A finger contusion may be treated with a splint or edmundo tape (taping the injured finger to the one next to it for support). Minor contusions likely will need no other treatment. Home care Elevate the hand to reduce pain and swelling. As much as possible, sit or lie down with the hand raised about the level of your heart. This is especially important during the first 48 hours. Ice the finger to help reduce pain and swelling. Wrap a cold source (ice pack or ice cubes in a plastic bag) in a thin towel. Apply to the bruised finger for 20 minutes every 1 to 2 hours the first day. Continue this 3 to 4 times a day until the pain and swelling goes away. If edmundo tape was applied and it becomes wet or dirty, change it. You may replace it with paper, plastic, or cloth tape. Before taping, put a thin strip of cotton or gauze between the fingers to absorb sweat. This will help prevent any breakdown of skin or fungal infections. Unless another medicine was prescribed, you can take acetaminophen, ibuprofen, or naproxen to control pain. (If you have chronic liver or kidney disease or ever had a stomach ulcer or gastrointestinal bleeding, talk with your doctor before using these medicines.) Follow up Follow up with your healthcare provider, or as advised. Call if you are not improving within 1 to 2 weeks. When to seek medical advice Call your healthcare provider right away if you have any of the following: Increased pain or swelling Hand or arm becomes cold, blue, numb or tingly Signs of infection: Warmth, drainage, or increased redness or pain around the bruise Inability to move the injured finger or hand Frequent bruising for unknown reasons Your fingernail becomes raised and it appears that there is blood accumulating under the nail. This may need to be drained. [phone] [employer]. [address] [place] [address]. All rights reserved. This information is not intended as a substitute for professional medical care. Always follow your healthcare professional's instructions. Additional Information VACCINATE! IT SAVES LIVES! Members of the community who have not yet received the COVID-19 vaccine and would like to receive it can visit one of [facility] vaccine clinics. There are many vaccine clinic locations within the [facility]. For locations and available times, please visit [email or web address] [email or web address] It is important to note that some COVID mobile vaccine clinics are held outdoors and may be canceled in rainy or stormy conditions. To learn more about pediatric vaccinations (ages 5-11), we invite you to visit the [facility] webpage. [email or web address] [email or web address]-Hmmxa-Ynwiwbzkaza-Freque wvov-[email or web address]-Spqqqibfv.html To learn more about the COVID-19 vaccine, we invite you to visit the CDC website for a list of frequently asked questions. https://www.cdc.gov/coronavirus/2 019-ncov/vaccines/faq.html [facility] Patient Portal Access Instructions: Stay connected with your healthcare team and access your personal medical information anytime with the [facility] Patient Portal. If you would like a full copy of your medical records please contact the [facility] Medical Records Department Wednesday through Wednesday between 8a.m. and 4:30p.m. Please follow the directions below to access the portal: 1.Access the email account you provided upon registration to the hospital.2.Look for an invitation email from [facility].3.Open the email and access the invitation link: Accept Invitation to [facility]4.Fill in the required kahn to create your account. Sign into [email or web address] with your username and password that you created in the above steps to stay up to date. You can then view a summary of results, a summary of your visits, and the ability to download your summaries to your computer or send the information securely to a physician. Remember that your healthcare information is confidential, so carefully consider who you will allow to register on the [facility] Patient Portal for access to your information. You can also access the [facility] Patient Portal on the [employer] arabella. Simply click on Health Records under Health Data and then click on the [facility] logo. HOW TO SAFELY DISPOSE OF PRESCRIPTION MEDICATIONS Please use one of the following methods to safely dispose of your unused medications. 1.Use a drug disposal kit: the drug disposal pouch allows you to safely discard your old and unused drugs. Ask your nurse to give you one when you are discharged.2.Visit a local take-back location: Many local pharmacies and police departments have programs that collect old and unwanted prescription drugs. Call your local pharmacy or go to http://Cinema One.SellMyJersey.com/8V0Ap3x to find one close to you.3.Make use of household items: Use cat litter or old coffee grounds to dispose medications if other options are not available. Mix your drugs with these household products, seal them in an airtight container and throw it into the garbage. Call [facility]: [phone] to be sure your drugs can be disposed of in this way. Some medicines may require a different approach.4.Never flush your medications down the toilet. IF YOU HAVE BEEN PRESCRIBED AN OPIOIDS FOR PAIN If you have been prescribed an opioid (such as hydrocodone, oxycodone or morphine), it is critical to understand the possible side effects and risks of opioid pain medications. Even when taken as directed, opioids can have several side effects including: Tolerance, meaning you might need to take more of a medication for the same pain relief. Nausea, vomiting and/or constipation. Sleepiness, dizziness, dry mouth, confusion, depression or itching. Physical dependence, meaning you have withdrawal symptoms when a medication is stopped ? this can develop within a few days. KNOW YOUR RESPONSIBILITIES It is important to know exactly how much and how often to take the opioid pain medications you are prescribed. Never take opioids in higher amounts or more often than prescribed. Do not combine opioids with alcohol or other drugs that cause drowsiness, such as benzodiazepines, also known as benzos, including diazepam and alprazolam, muscle relaxants or sleep aids. Never sell or share prescription opioids. This is illegal. Store opioids in a secure place and out of reach of others (including children, family, friends and visitors). The last page(s) of this document has been signed and retained as a CHART COPY Signatures Patient Education Materials Finger Contusion Medication Leaflets My discharge plan and instructions have been reviewed and explained to me and INEENA NICHOLAS J understand my current condition and have read and understand these discharge instructions. I have received a written copy of the plan/instructions. If I have questions, I am aware that I should contact my doctor. Patient/Emergency Physician Signature: Date/Time: Relationship to Patient: ____ Witness Name/Signature: Date/Time: [facility] Clinical Note 05-24-2023 Note Date & Type Note Facility 05-24-2023 Note ORIGINAL EXAMINATION: THREE XRAY VIEWS OF THE LEFT THUMB 05/24/2023 5:13 pm COMPARISON: None. HISTORY: ORDERING SYSTEM PROVIDED HISTORY: Reason for Exam: pain, contusion distal phalanx lt thumb. hit with a hammer today. pain FINDINGS: There is no evidence of acute fracture. There is normal alignment. No acute joint abnormality. No focal osseous lesion. No focal soft tissue abnormality. IMPRESSION: No acute osseous abnormality. Interpreted by: Angel Dale Preliminary Report By: Angel Dale Electronically signed By Angel Dale Dictated Date: 05/24/2023 5:31:44 PM Prelim Date: 05/24/2023 5:33:00 PM Sign Date: 05/24/2023 5:33:00 PM Ordering Provider: BETY LEIGH [facility] Discharge instructions 03-09-2023 Note Date & Type Note Facility 03-09-2023 Hospital Discharg e instructions Patient Education 03/09/2023 17:23:11 LACERATION, All Laceration (All Closures) A laceration is a cut through the skin. This will usually require stitches (sutures) or benny if it is deep. Minor cuts may be treated with a surgical tape closure or skin glue. Home care The following guidelines will help you care for your laceration at home: Extremity, face, or trunk wounds Keep the wound clean and dry. If a bandage was applied and it becomes wet or dirty, replace it. Otherwise, leave it in place for the first 24 hours. If stitches or benny were used, clean the wound daily. After removing the bandage, wash the area with soap and water. Use a wet cotton swab to loosen and remove any blood or crust that forms. The doctor may prescribe an antibiotic cream or ointment to prevent infection. Do not stop taking this medication until you have finished the prescribed course or the doctor tells you to stop. The doctor may also prescribe medications for pain. Follow the doctor s instructions for taking these medications. You may remove the bandage to shower as usual after the first 24 hours, but do not soak the area in water (no swimming) until the stitches or benny are removed. If surgical tape was used, keep the area clean and dry. If it becomes wet, blot it dry with a towel. If skin glue was used, do not scratch, rub, or pick at the adhesive film. Do not place tape directly over the film. Do not apply liquid, ointment, or creams to the wound while the film is in place. Do not clean the wound with peroxide and do not apply ointments. Avoid activities that cause heavy sweating until the film has fallen off. Protect the wound from prolonged exposure to sunlight or tanning lamps. You may shower as usual but do not soak the wound in water (no baths or swimming). The film will fall off by itself in 5 10 days. Scalp wounds During the first two days, you may carefully rinse your hair in the shower to remove blood, glass or dirt particles. After two days, you may shower and shampoo your hair normally. Do not soak your scalp in the tub or go swimming until the stitches or benny have been removed. Talk with your doctor before applying any antibiotic ointment to the wound. Mouth wounds Eat soft foods to reduce pain. If the cut is inside of your mouth, clean by rinsing after each meal and at bedtime with a mixture of equal parts water and hydrogen peroxide (do not swallow!). Or, you can use a cotton swab to directly apply hydrogen peroxide onto the cut. Mouth wounds can be painful when eating. You may use an zeru-ywl-enjlyhy local numbing solution for pain relief. If this is not available, you may use any numbing solution for teething babies. You may apply this directly to the sores with a cotton-tip swab or with your finger. Follow-up care Follow up with your health care provider. Most skin wounds heal within ten days. Mouth and facial wounds heal within five days. However, even with proper treatment, a wound infection may sometimes occur. Therefore, you should check the wound daily for signs of infection listed below. Stitches should be removed from the face within five days; stitches and benny should be removed from other parts of the body within 7 14 days. If dissolving stitches were used in the mouth, these will fall out or dissolve without the need for removal. If tape closures were used, remove them yourself if they have not fallen off after 7 days. If skin glue was used, the film will fall off by itself in 5 10 days. When to seek medical advice Call your health care provider right away if any of these occur: Bleeding not controlled by direct pressure Signs of infection, including increasing pain in the wound, increasing wound redness or swelling, or pus coming from the wound Fever of 100.4 F (38 C) or higher, or as directed by your health care provider Stitches or benny come apart or fall out or surgical tape falls off before 7 days Wound edges re-open [phone] [employer]. [address] [place] [address], [place] [address]. All rights reserved. This information is not intended as a substitute for professional medical care. Always follow your healthcare professional's instructions. Follow Up Care 03/09/2023 17:16:56 With:CARLOS GARNER MD Address: [address] [place] [phone] When:2-4 days only if needed With:Go to emergency room if symptoms worsen Address:Unknown When:2-4 days [facility] Clinical Note 03-09-2023 Note Date & Type Note Facility 03-09-2023 Note Discharge Instructions Thank you for allowing [facility] to assist you with your healthcare needs. The following is important discharge information regarding your hospital visit. Diagnosis from Today's Visit Laceration of thumb Hand laceration What to Do Next Instructions from Your Care Team Remove bandage . Cleanse with mild soap and water daily. Redress. Keep area covered. Return if worse. No qualifying data available. Post Acute Orders No qualifying data available. You Need to Schedule the Following Appointments Follow Up with CARLOS GARNER MD When Within 2-4 days, only if needed Where: [address] [place] [address] [phone] Follow Up with Go to emergency room if symptoms worsen When Within 2-4 days Allergies NKA Medications Please ask your primary doctor or pharmacist before taking any other medication not listed, including over the counter drugs, herbal medications, vitamins and or supplements as they may interact with your home medications. Please take this list to your next doctor s visit. Bring all medications you take, including over the counter medications, herbals and other supplements with you to your doctor s visit. Patients and families are reminded to discard old lists and to update any records with all medication providers or retail pharmacies. Education Materials Laceration (All Closures) A laceration is a cut through the skin. This will usually require stitches (sutures) or benny if it is deep. Minor cuts may be treated with a surgical tape closure or skin glue. Home care The following guidelines will help you care for your laceration at home: Extremity, face, or trunk wounds Keep the wound clean and dry. If a bandage was applied and it becomes wet or dirty, replace it. Otherwise, leave it in place for the first 24 hours. If stitches or benny were used, clean the wound daily. After removing the bandage, wash the area with soap and water. Use a wet cotton swab to loosen and remove any blood or crust that forms. The doctor may prescribe an antibiotic cream or ointment to prevent infection. Do not stop taking this medication until you have finished the prescribed course or the doctor tells you to stop. The doctor may also prescribe medications for pain. Follow the doctor s instructions for taking these medications. You may remove the bandage to shower as usual after the first 24 hours, but do not soak the area in water (no swimming) until the stitches or benny are removed. If surgical tape was used, keep the area clean and dry. If it becomes wet, blot it dry with a towel. If skin glue was used, do not scratch, rub, or pick at the adhesive film. Do not place tape directly over the film. Do not apply liquid, ointment, or creams to the wound while the film is in place. Do not clean the wound with peroxide and do not apply ointments. Avoid activities that cause heavy sweating until the film has fallen off. Protect the wound from prolonged exposure to sunlight or tanning lamps. You may shower as usual but do not soak the wound in water (no baths or swimming). The film will fall off by itself in 5 10 days. Scalp wounds During the first two days, you may carefully rinse your hair in the shower to remove blood, glass or dirt particles. After two days, you may shower and shampoo your hair normally. Do not soak your scalp in the tub or go swimming until the stitches or benny have been removed. Talk with your doctor before applying any antibiotic ointment to the wound. Mouth wounds Eat soft foods to reduce pain. If the cut is inside of your mouth, clean by rinsing after each meal and at bedtime with a mixture of equal parts water and hydrogen peroxide (do not swallow!). Or, you can use a cotton swab to directly apply hydrogen peroxide onto the cut. Mouth wounds can be painful when eating. You may use an sijh-lqp-ykzovjz local numbing solution for pain relief. If this is not available, you may use any numbing solution for teething babies. You may apply this directly to the sores with a cotton-tip swab or with your finger. Follow-up care Follow up with your health care provider. Most skin wounds heal within ten days. Mouth and facial wounds heal within five days. However, even with proper treatment, a wound infection may sometimes occur. Therefore, you should check the wound daily for signs of infection listed below. Stitches should be removed from the face within five days; stitches and benny should be removed from other parts of the body within 7 14 days. If dissolving stitches were used in the mouth, these will fall out or dissolve without the need for removal. If tape closures were used, remove them yourself if they have not fallen off after 7 days. If skin glue was used, the film will fall off by itself in 5 10 days. When to seek medical advice Call your health care provider right away if any of these occur: Bleeding not controlled by direct pressure Signs of infection, including increasing pain in the wound, increasing wound redness or swelling, or pus coming from the wound Fever of 100.4 F (38 C) or higher, or as directed by your health care provider Stitches or benny come apart or fall out or surgical tape falls off before 7 days Wound edges re-open [phone] [employer]. [address] [place] [address]. All rights reserved. This information is not intended as a substitute for professional medical care. Always follow your healthcare professional's instructions. Additional Information VACCINATE! IT SAVES LIVES! Members of the community who have not yet received the COVID-19 vaccine and would like to receive it can visit one of [facility] vaccine clinics. There are many vaccine clinic locations within the [facility]. For locations and available times, please visit www.gettheshot.coronavirus.[place].gov/. It is important to note that some COVID mobile vaccine clinics are held outdoors and may be canceled in rainy or stormy conditions. To learn more about pediatric vaccinations (ages 5-11), we invite you to visit the [facility] webpage. [email or web address].[email or web address].org/pages/2 [email or web address]-Mrgup-Gmfnoeqxtnv-Frequently-Asked -Questions.html To learn more about the COVID-19 vaccine, we invite you to visit the CDC website for a list of frequently asked questions. https://www.cdc.gov/coronavirus/2019-n cov/vaccines/faq.html [employer] [facility] Patient Portal Access Instructions: Stay connected with your healthcare team and access your personal medical information anytime with the [employer] Patient Portal. If you would like a full copy of your medical records please contact the [facility] Medical Records Department Wednesday through Wednesday between 8a.m. and 4:30p.m. Please follow the directions below to access the portal: 1.Access the email account you provided upon registration to the hospital.2.Look for an invitation email from [facility].3.Open the email and access the invitation link: Accept Invitation to [employer] [facility]4.Fill in the required kahn to create your account. Sign into [email or web address] with your username and password that you created in the above steps to stay up to date. You can then view a summary of results, a summary of your visits, and the ability to download your summaries to your computer or send the information securely to a physician. Remember that your healthcare information is confidential, so carefully consider who you will allow to register on the [employer] Patient Portal for access to your information. You can also access the [employer] Patient Portal on the [employer] arabella. Simply click on Health Records under Health Data and then click on the [employer] logo. HOW TO SAFELY DISPOSE OF PRESCRIPTION MEDICATIONS Please use one of the following methods to safely dispose of your unused medications. 1.Use a drug disposal kit: the drug disposal pouch allows you to safely discard your old and unused drugs. Ask your nurse to give you one when you are discharged.2.Visit a local take-back location: Many local pharmacies and police departments have programs that collect old and unwanted prescription drugs. Call your local pharmacy or go to http://[employer] [email or web address]/8Z6Hu6r to find one close to you.3.Make use of household items: Use cat litter or old coffee grounds to dispose medications if other options are not available. Mix your drugs with these household products, seal them in an airtight container and throw it into the garbage. Call [facility]: [phone] to be sure your drugs can be disposed of in this way. Some medicines may require a different approach.4.Never flush your medications down the toilet. IF YOU HAVE BEEN PRESCRIBED AN OPIOIDS FOR PAIN If you have been prescribed an opioid (such as hydrocodone, oxycodone or morphine), it is critical to understand the possible side effects and risks of opioid pain medications. Even when taken as directed, opioids can have several side effects including: Tolerance, meaning you might need to take more of a medication for the same pain relief. Nausea, vomiting and/or constipation. Sleepiness, dizziness, dry mouth, confusion, depression or itching. Physical dependence, meaning you have withdrawal symptoms when a medication is stopped ? this can develop within a few days. KNOW YOUR RESPONSIBILITIES It is important to know exactly how much and how often to take the opioid pain medications you are prescribed. Never take opioids in higher amounts or more often than prescribed. Do not combine opioids with alcohol or other drugs that cause drowsiness, such as benzodiazepines, also known as benzos, including diazepam and alprazolam, muscle relaxants or sleep aids. Never sell or share prescription opioids. This is illegal. Store opioids in a secure place and out of reach of others (including children, family, friends and visitors). The last page(s) of this document has been signed and retained as a CHART COPY Signatures Patient Education Materials LACERATION, All Medication Leaflets My discharge plan and instructions have been reviewed and explained to me and INEENA NICHOLAS J understand my current condition and have read and understand these discharge instructions. I have received a written copy of the plan/instructions. If I have questions, I am aware that I should contact my doctor. Patient/Emergency Physician Signature: _ Date/Time: Relationship to Patient: Witness Name/Signature: Date/Time: [facility] Evaluation + Plan note Note Date & Type Note Facility Evaluation + Plan note No data available for this section [facility] Summary Purpose Family History No Family History Records Found No data available for this section No Family History Records Found Advance Directives No Advanced Directives Records FoundNo Advanced Directives Records Found Additional Source Comments (unrecognized sect ion and content) No Status Records FoundNo Status Records Found INFORMATION SOURCE (unrecogn ized section and content) DATE CREATED AUTHOR AUTHOR'S ORGANIZ ATION 06/04/2023 [facility] ([place]) Patient Care team informatio n (unrecognized section and content) Care Team Personnel Name: CARLOS GARNER MD Member Role: Primary Care Physician Address: Address: [address] [place] [address] Name: JEAN-PIERRE SHEN MD Position: ED Physician Member Role: ED Physician Address: Address: [facility] [address] [place] [address] Care Team Related Persons Name: ISAÍAS CHAUDHARY Care Team Personnel Name: CARLOS GARNER MD Member Role: Primary Care Physician Address: Address: [address] [place] [address] Name: RAGHAVENDRA León Position: ED RN Member Role: ED RN Name: BETY LEIGH MD Position: ED Physician Member Role: Attending Physician Address: Address: [facility] [address] [place] [address] Care Team Related Persons Name: ISAÍAS CHAUDHARY FOR RECORDS PERTAINING TO PATIENTS WHO ARE OR HAVE BEEN ENROLLED IN A CHEMICAL DEPENDENCY/SUBSTANCEABUSE PROGRAM, SOME INFORMATION MAY BE OMITTED. This clinical summary was aggregated from multiple sources. Caution should be exercised in using it in the provision of clinical care. This summary normalizes information from multiple sources, and as a consequence, information in this document may materially change the coding, format and clinical context of patient data. In addition, data may be omitted in some cases. CLINICAL DECISIONS SHOULD BE BASED ON THE PRIMARY CLINICAL RECORDS. [employer]. provides no warranty or guarantee of the accuracy or completeness of information in this document.
[2023-09-21] MEDS: Lactated Ringers 1,000 ML 15 ML IV (07:15)
[2023-09-21 07:19] VITALS: BP 155/96; PULSE 63; RESP 16; TEMP 36.6; O2SAT 97; BMI 24.1
--- NOTE | 2023-09-21 07:45 | PCM.HP.BLA ---
History and Physical Date of Admission: 09/21/23 Intake Vital Signs 07/29/2307:36 08/31/2408:16 Height 5 ft 10 in 5 ft 1 in Weight: 173 lb 177 lb BMI 24.8 33.4 BP 118/74 143/92 H Blood Pressure Location Lt brachial Rt brachial Position Sitting Sitting Respiration 16 17 Pulse 68 62 Pulse Source Monitor Monitor Temp 98.7 F 97 F L Temp Source Temporal Temporal Pulse Oximetry (%) 99 97 Oxygen Delivery Method room air room air Intake Visit Reasons: CHANGE IN BOWELS/BLOOD IN STOOL Chief Complaint: change in bowels/blood in stool Is patient in pain?: No Allergies No Known Allergies Allergy (Verified 08/31/23 09:17) Medications ibuprofen 600 mg tablet 600 mg PO TID PRN pain #30 tabs 04/30/22 [Rx Confirmed 08/31/23] buprenorphine 8 mg-naloxone 2 mg sublingual tablet 1 tab sublingual DAILY 02/10/23 [History Confirmed 08/31/23] PFSH Medical History Acute pericarditis (09/27/20) Anxiety Back problem Cervicalgia Chewing tobacco use Dermatitis Elevated BP without diagnosis of hypertension Essential tremor Generalized anxiety disorder History of non-ST elevation myocardial infarction (NSTEMI) (09/27/20) History of pulmonary embolus (PE) (10/21/13) Hypertension Kidney stones Nocturia Urinary frequency Vertigo Surgical History History of knee surgery History of left heart catheterization (09/27/20) Family History Aunt Cancer CVA (cerebral vascular accident)Uncle CancerFather Myocardial infarction Heart disease Colon cancerMother Kidney disease Skin cancer Social History (Updated 08/31/23 @ 09:16 by Nely Hernandez) Smoking Status: Current every day smoker Smokeless tobacco user: chewing tobacco alcohol intake: never substance use type: does not use what type of physical activity do you participate in: none HPI HPI HPI: Patient is a 43-year-old male here with blood in his stool. He reports that he alternates between constipation and diarrhea. He notes that for the last few months he has been having blood in his stool. He denies any blood thinners. He has never had a colonoscopy. He Does have a family history of colon cancer in his grandfather and he thinks his father as well. ROS General General: Yes fatigue; No weight change, appetite, colon cancer, breast cancer or weakness HEENT HEENT: No difficulty swallowing, eye injury, eye surgery, swollen glands or hoarseness Endo Endocrine: No thyroid disease, diabetes mellitus, thyroid cancer, Hair loss, heat intolerance or cold intolerance Skin Skin: Yes rash; No changing moles Musc Musculoskeletal: Yes back problems; No arthritis, rheumatoid arthritis, gout or joint pain Cardio Cardiovascular: Yes high blood pressure; No murmur, pacemaker, heart disease, atrial fibrillation, heart attack, heart stent, palpitations, shortness of breat with exertion or chest pain Psych Psychiatric: Yes anxiety; No depression or hearing voices Resp Respiratory: Yes shortness of breath, No sleep apnea, No cough, No COPD, No asthma, No emphysema and No wheezing Gastro Gastrointestinal: Yes abdominal pain, No nausea or vomiting, Yes diarrhea, Yes constipation, Yes blood in stool, No acid reflux, Yes hemorrhoids, No ulcers, No gallbladder problem and Yes black,tarry stools Rowdy Hematologic: No blood thinners, No blood disorders, No bleeding, No anemia and Yes blood clots Additional Details: h/o blood clot after knee surgery at [facility] t10 years ago Neuro Neurologic: No system reviewed and no additional complaints, except as documented, No as per HPI, No abnormal gait, No abnormal hearing, No abnormal movements, No abnormal speech, No behavioral changes, No burning sensations, No confusion, No convulsions, No disequilibrium, No dizziness, No localized weakness, No frequent falls, No headache(s), No lack of coordination, No loss of vision, No memory loss, No numbness, No other visual disturbances, No radicular pain, No restless legs, No sensory deficit, No syncope, No tingling, No tremor(s), No weakness and No other Exam Const General: cooperative Orientation: alert and oriented x3 [facility] Head: normal to inspection Neck Neck: normal visual inspection and full ROM Chest Chest palpation & inspection: normal inspection of the chest Resp Effort & Inspection: normal respiratory effort Auscultation: clear to auscultation bilaterally Cardio Rate: regular rate Rhythm: regular rhythm GI Inspection: non-distended Palpation: soft and nontender Skin General: no rashes or lesions noted Neuro General: patient alert and patient oriented x3 Extrem General: full ROM Psych Appearance: grossly normal Mental Status: mental status grossly normal Assessment and Plan Assessment and Plan (1) Blood in stool: Status: Acute (2) Constipation: Status: Acute Qualifiers: Constipation type: unspecified constipation type Qualified Code(s): K59.00 - Constipation, unspecified Orders: Orders Colonoscopy Today Plan The patient reports that he has an anxiety attack every time he has to have a bowel movement. Unsure as to why this is happening. He also reports he goes between constipation and diarrhea and has been noticing painless bleeding in his stool for the last few months. I will plan for colonoscopy to evaluate. I explained endoscopy in detail to the patient. I explained the risks including but not limited to stroke or heart attack with anesthesia, perforation of the GI tract, bleeding, infection. I explained that any of these could necessitate further emergency surgery. The patient understands and all questions were answered sufficiently. The patient wishes to proceed with procedure. Antony Shell MD Pager: [facility] [address] [place] [address] [address] [place] [address] Office: I have examined the patient and the H&P has been reviewed. There are no clinical changes since date of exam.
[2023-09-21 08:21] VITALS: BP 105/82; BP 155/96; PULSE 63; RESP 16; TEMP 36.2; O2SAT 96
[2023-09-21 08:25] VITALS: BP 114/80; BP 155/96; PULSE 63; RESP 16; O2SAT 96
--- NOTE | 2023-09-21 08:29 | OP.CCLET_ITS ---
09/21/2023 Deborah Leonard MD [address] [place] [address] [place] [address] Re : Upper GI endoscopy procedure for Fly Smith Dear Dr. Leonard This procedure was performed on Thursday, September 21, 2023. My impressions and recommendations are as follows: Impressions : - Normal esophagus. - Normal stomach. - Normal examined duodenum. - No specimens collected. Recommendations : - Discharge patient to home. - Resume previous diet. - Continue present medications. My findings are described in the full procedure note, which is enclosed. If I can be of further assistance, please feel free to contact me at Doctor phone number(s): , Work: . Sincerely, Antony Shell MD 09/21/2023 8:29:09 AM This report has been signed electronically.
--- NOTE | 2023-09-21 08:29 | OP.EGD_ITS ---
Patient Name: Fly Smith Procedure Date: 09/21/2023 7:55 AM Date of : 1980 Age: 43 Procedure: Upper GI endoscopy Indications: Recent gastrointestinal bleeding Providers: Antony Shell MD Referring MD: Antony Shell MD Medicines: Monitored Anesthesia Care Patient Profile: This is a 43 year old male. Refer to note in patient chart for documentation of history and physical. Complications: No immediate complications. Procedure: Pre-Anesthesia Assessment: - Prior to the procedure, a History and Physical was performed, and patient medications and allergies were reviewed. The patient's tolerance of previous anesthesia was also reviewed. The risks and benefits of the procedure and the sedation options and risks were discussed with the patient. All questions were answered, and informed consent was obtained. Prior Anticoagulants: The patient has taken no anticoagulant or antiplatelet agents. After reviewing the risks and benefits, the patient was deemed in satisfactory condition to undergo the procedure. After obtaining informed consent, the endoscope was passed under direct vision. Throughout the procedure, the patient's blood pressure, pulse, and oxygen saturations were monitored continuously. The Endoscope was introduced through the mouth, and advanced to the second part of duodenum. The upper GI endoscopy was accomplished without difficulty. The patient tolerated the procedure well. Scope In: 8:00:25 AM Scope Out: 8:02:00 AM Total Procedure Duration Time 0 hours 1 minute 35 seconds Findings: The esophagus was normal. The stomach was normal. The examined duodenum was normal. Impression: - Normal esophagus. - Normal stomach. - Normal examined duodenum. - No specimens collected. Recommendation: - Discharge patient to home. - Resume previous diet. - Continue present medications. Procedure Code(s): --- Professional --- 96828, Esophagogastroduodenoscopy, flexible, transoral; diagnostic, including collection of specimen(s) by brushing or washing, when performed (separate procedure) Diagnosis Code(s): --- Professional --- K92.2, Gastrointestinal hemorrhage, unspecified CPT copyright 2021 [employer]. All rights reserved. The codes documented in this report are preliminary and upon director case management review may be revised to meet current compliance requirements. Antony Shell MD 09/21/2023 8:29:09 AM This report has been signed electronically. Number of Addenda: 0 Note Initiated On: 09/21/2023 7:55 AM
[2023-09-21 08:30] VITALS: BP 111/83; BP 155/96; PULSE 63; RESP 16; O2SAT 95
--- NOTE | 2023-09-21 08:31 | OP.COLON_ITS ---
Patient Name: Fly Smith Procedure Date: 09/21/2023 8:04 AM Date of : 1980 Age: 43 Procedure: Colonoscopy Indications: Rectal bleeding Providers: Antony Shell MD Referring MD: Antony Shell MD Medicines: Monitored Anesthesia Care Patient Profile: This is a 43 year old male. Refer to note in patient chart for documentation of history and physical. Last Colonoscopy: none. The patient's first colonoscopy is today. Complications: No immediate complications. Procedure: Pre-Anesthesia Assessment: - Prior to the procedure, a History and Physical was performed, and patient medications and allergies were reviewed. The patient's tolerance of previous anesthesia was also reviewed. The risks and benefits of the procedure and the sedation options and risks were discussed with the patient. All questions were answered, and informed consent was obtained. Prior Anticoagulants: The patient has taken no anticoagulant or antiplatelet agents. After reviewing the risks and benefits, the patient was deemed in satisfactory condition to undergo the procedure. - Prior to the procedure, a History and Physical was performed, and patient medications and allergies were reviewed. The patient's tolerance of previous anesthesia was also reviewed. The risks and benefits of the procedure and the sedation options and risks were discussed with the patient. All questions were answered, and informed consent was obtained. Prior Anticoagulants: The patient has taken no anticoagulant or antiplatelet agents. After reviewing the risks and benefits, the patient was deemed in satisfactory condition to undergo the procedure. After I obtained informed consent, the scope was passed under direct vision. Throughout the procedure, the patient's blood pressure, pulse, and oxygen saturations were monitored continuously. The Colonoscope was introduced through the anus and advanced to the cecum, identified by appendiceal orifice and ileocecal valve. The colonoscopy was performed without difficulty. The patient tolerated the procedure well. The quality of the bowel preparation was good. The ileocecal valve, appendiceal orifice, and rectum were photographed. Scope In: 8:04:39 AM Scope Withdrawal Time 0 hours 5 minutes 46 seconds Scope Out: 8:16:12 AM Total Procedure Duration Time 0 hours 11 minutes 33 seconds Findings: The entire examined colon appeared normal on direct and retroflexion views. Impression: - The entire examined colon is normal on direct and retroflexion views. - No specimens collected. Recommendation: - Discharge patient to home. - Resume previous diet. - Continue present medications. - Repeat colonoscopy in 10 years for screening purposes. Procedure Code(s): --- Professional --- 57344, Colonoscopy, flexible; diagnostic, including collection of specimen(s) by brushing or washing, when performed (separate procedure) Diagnosis Code(s): --- Professional --- K62.5, Hemorrhage of anus and rectum CPT copyright 2021 [employer]. All rights reserved. The codes documented in this report are preliminary and upon medical dir review may be revised to meet current compliance requirements. Antony Shell MD 09/21/2023 8:30:43 AM This report has been signed electronically. Number of Addenda: 0 Note Initiated On: 09/21/2023 8:04 AM
--- NOTE | 2023-09-21 08:31 | OP.CCLET_ITS ---
09/21/2023 Deborah Leonard MD [address] [place] [address] [place] [address] Re : Colonoscopy procedure for Fly Smith Dear Dr. Leonard This procedure was performed on Thursday, September 21, 2023. My impressions and recommendations are as follows: Impressions : - The entire examined colon is normal on direct and retroflexion views. - No specimens collected. Recommendations : - Discharge patient to home. - Resume previous diet. - Continue present medications. - Repeat colonoscopy in 10 years for screening purposes. My findings are described in the full procedure note, which is enclosed. If I can be of further assistance, please feel free to contact me at Doctor phone number(s): , Work: . Sincerely, Antony Shell MD 09/21/2023 8:30:43 AM This report has been signed electronically.
[2023-09-21 08:35] VITALS: BP 115/85; BP 155/96; PULSE 64; RESP 16; TEMP 36.4; O2SAT 97
[2023-09-21 08:51] VITALS: BP 155/96
== END 2023-09-21 08:55 | disposition home or self-care (01) ==
LOC: EN 07:03 → AC 07:04
PROVIDERS: PCP Internal Medicine; Referring Provider Internal Medicine; Visit Provider Surgery
PROC: 0DJD8ZZ Inspection of Lower Intestinal Tract, Via Natural or Artificial Opening Endoscopic (ICD-10-PCS; CPT 45378; principal; 2023-09-21 07:55)
DX: K62.5 Hemorrhage of anus and rectum (principal); K59.00 Constipation, unspecified; F17.220 Nicotine dependence, chewing tobacco, uncomplicated; I25.2 Old myocardial infarction; F41.9 Anxiety disorder, unspecified; Z86.711 Personal history of pulmonary embolism; Z80.0 Family history of malignant neoplasm of digestive organs
CPT/HCPCS: 43235; 45378; J7120; J2405

== ENCOUNTER 2023-10-07 22:51 | Emergency (ER) | payer MEDICAID, SELFPAY ==
[2023-10-07 22:52] VITALS: BP 150/94; PULSE 81; RESP 20; TEMP 36.8; O2SAT 97
--- NOTE | 2023-10-07 22:58 | US_ITS ---
STUDY: SCROTUM ULTRASOUND REASON FOR EXAM: Male, 43 years old. Pain TECHNIQUE: Ultrasound evaluation of the scrotum was performed with color Doppler and static reynaga-scale imaging. COMPARISON: None. FINDINGS: RIGHT TESTICLE INTRATESTICULAR: There is a normal size of the right testicle. The right testicle measures 5.7 x 3.6 x 2.5 cm. There is a homogenous echotexture. There is normal arterial and normal venous vascularity. There is no demonstrated right testicular mass or cyst. EXTRATESTICULAR: The epididymis is slightly enlarged The epididymis head measures 1.2 x 0.5 x 0.8 cm. There is slight increase vascularity of the epididymis. There is no demonstrated epididymal cystic structure. There is no demonstrated hydrocele. There are borderline prominent extratesticular veins consistent with a varicocele. There is no demonstrated extratesticular mass or cyst. LEFT TESTICLE INTRATESTICULAR: There is a normal size of the left testicle. The left testicle measures 5.5 x 3.6 x 2.4 cm. There is a homogenous echotexture. There is normal arterial and normal venous vascularity. There is no demonstrated left testicular mass or cyst. EXTRATESTICULAR: The epididymis is normal in size. The epididymis head measures 0.9 x 1.0 x 0.7 cm. There is normal vascularity of the epididymis. There is no demonstrated epididymal cystic structure. There is a small hydrocele. There are borderline prominent extratesticular veins consistent with a varicocele. There is no demonstrated extratesticular mass or cyst. US/Testicular with Arterial Flow IMPRESSION: Normal bilateral testicles. Findings are suspicious for upper limits of normal venous structures in the scrotal tissues suggesting small varicoceles. No visualized torsion. Asymmetric slight increased appearance of the vascularity of the right epididymal head in size compared to the left could consider possible epididymitis. Electronically Signed: More Bloom MD at 0:18 EST ,
--- OUTSIDE RECORDS SUMMARY | 2023-10-07 23:10 | XMS RPT_ITS | CCD ---
Author Name Unknown Address [address] [place] [address] Organization [facility] Care Team Providers Care Die Repair Name Role Phone DOCTOR, NO F. Unavailable Unavailable TIFFANY PARKS Unavailable Unavailable CARLOS GARNER MD Primary Care Physician [phone] HERMELINDA WRIGHT, JEAN-PIERRE Goodrich Attending Unavailable CARLOS [...] Body temperature 98.96 [degF] BETY LEIGH MD [facility] 05-24-2023 16:51-0400 Diastolic Blood Pressure Non-Invasive 98 1 BETY LEIGH MD [facility] 05-24-2023 16:51-0400 Heart rate 68 /min BETY LEIGH MD [facility] 05-24-2023 16:51-0400 Respiratory rate 18 /min BETY LEIGH MD [facility] 05-24-2023 16:51-0400 Systolic Blood Pressure Non-Invasive 148 1 BETY LEIGH MD [facility] 03-09-2023 17:19-0400 Body height 180 cm JEAN-PIERRE SHEN MD [facility] 03-09-2023 17:19-0400 Body temperature 98.24 [degF] JEAN-PIERRE SHEN MD [facility] 03-09-2023 17:19-0400 Body weight 77 kg JEAN-PIERRE SHEN MD [facility] 03-09-2023 17:19-0400 Diastolic Blood Pressure Non-Invasive 92 1 JEAN-PIERRE SHEN MD [facility] 03-09-2023 17:19-0400 Heart rate 66 /min JEAN-PIERRE SHEN MD [facility] 03-09-2023 17:19-0400 Respiratory rate 16 /min JEAN-PIERRE SHEN MD [facility] 03-09-2023 17:19-0400 Systolic Blood Pressure Non-Invasive 136 1 JEAN-PIERRE SHEN MD [facility] Encounters Encounter Date Encounter Type Care Provider Facility Start: 05-24-2023 End: 05-24-2023 Emergency department patient visit BETY LEIGH MD Facility:B Start: 05-24-2023 End: 05-24-2023 Emergency department patient visit BETY LEIGH MD [facility] Start: 03-09-2023 End: 03-09-2023 Emergency department patient visit JEAN-PIERRE SHEN MD Facility:B Start: 03-09-2023 End: 03-09-2023 Emergency department patient visit JEAN-PIERRE SHEN MD [facility] Start: 01-22-2018 End: 01-22-2018 Emergency department patient visit NO Shona Facility:[facility] Immunizations Immunization Date Immunization Notes Care Provider Fa cility 12-23-2020 tetanus toxoid, redu lan diphtheria toxoid, and acellular pertussis vaccine, adsorbed JEAN-PIERRE SHEN MD [facility] Payers Date Payer Category Payer Unknown [id number] 2018 Unknown [id number] 1979 Unknown [id number] 1979 Unknown [id number] Social History Date Type Detail Facility Tobacco smoking status Smokes to bacco daily (finding) [facility] Sex Assigned At Sex [facility] Functional Status Date Assessment Result Facility 03-09-2023 Functional Status ID band on, Call device within reach, Bed in low position, Wheels locked, Upper/Half-Length side-rails up, Phone within reach, personal items within reach [facility] Mental Status Date Assessment Result Facility 03-09-2023 Mental Status Oriented x 4 [facility] Discharge instructions 05-24-2023 Note Date & Type [...] nail. This may need to be drained. [id number] [employer] [facility]. [address] [place] [address], [place] [address]. All rights reserved. This information is not intended as a substitute for professional medical care. Always follow your healthcare professional's instructions. Follow Up Care 05/24/2023 16:51:33 With:CARLOS GARNER MD Address: [address] [place] [address] [place] [address] [phone] When:2-4 days [facility] Emergency department Discharge summary 05-24-2023 Note [...] When Within 2-4 days Where: [place] [address]- [phone] Allergies NKA Medications Please ask your primary [...] nail. This may need to be drained. [phone] [facility]. [address] [place] [address]. All rights reserved. This information is not intended as a substitute for professional medical care. Always follow your healthcare professional's instructions. Additional Information VACCINATE! IT SAVES LIVES! Members of the community who have not yet received the COVID-19 vaccine and would like to receive it can visit one of [facility] vaccine clinics. There are many vaccine clinic locations within the [facility]. For locations and available times, please visit [email or web address] It is important to note that some COVID mobile vaccine clinics are held outdoors and may be canceled in rainy or stormy conditions. To learn more about pediatric vaccinations (ages 5-11), we invite you to visit the [facility] webpage. https://www.[facility].org/pa ges/5272-Smppv-Artmarwjgqi-Freque aach-Ynrtz-Mobmqmijr.html To learn more about the COVID-19 vaccine, we invite you to visit the CDC website for a list of frequently asked questions. https://www.cdc.gov/coronavirus/2 019-ncov/vaccines/faq.html [facility] Patient Portal Access Instructions: Stay connected with your healthcare team and access your personal medical information anytime with the [facility] Patient Portal. If you would like a full copy of your medical records please contact the [facility] Medical Records Department Wednesday through Wednesday between 8a.m. and 4:30p.m. Please follow the directions below to access the portal: 1.Access the email account you provided upon registration to the hospital.2.Look for an invitation email from [facility].3.Open the email and access the invitation link: Accept Invitation to [email or web address].Fill in the required kahn to create your account. Sign into [email or web address] with your username and password that you [...] you will allow to register on the [facility] Patient Portal for access to your information. You can also access the [email or web address] Patient Portal on the [employer] arabella. Simply click on Health Records under [...] Call your local pharmacy or go to http://Careers360.Tip Network/4X5Ho1w to find one close to you.3.Make use of household items: Use cat litter or old coffee grounds to dispose medications if other options are not available. Mix your drugs with these household products, seal them in an airtight container and throw it into the garbage. Call [facility]: [phone] to be sure your drugs can be [...] aware that I should contact my doctor. 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 You may use an jhpl-lqv-qjkdifw local numbing solution for pain relief. If [...] off before 7 days Wound edges re-open [phone] [facility]. [address] [place] [address], [place] [address]. All rights reserved. This information is not intended as a substitute for professional medical care. Always follow your healthcare professional's instructions. Follow Up Care 03/09/2023 17:16:56 With:CARLOS GARNER MD Address: [address] [place] [address] [phone] When:2-4 days only if needed With:Go to emergency room if symptoms worsen Address:Unknown When:2-4 days [facility] Clinical Note 03-09-2023 Note Date & Type Note Facility 03-09-2023 Note Discharge Instructions Thank you for allowing [facility] to assist you with your healthcare needs. [...] days, only if needed Where: [address] [place] [address]- [phone] Follow Up with Go to emergency room [...] painful when eating. You may use an wlsh-mnh-ymygrsb local numbing solution for pain relief. If [...] off before 7 days Wound edges re-open [phone] [facility]. [address] [place] [address]. All rights reserved. This information is not intended as a substitute for professional medical care. Always follow your healthcare professional's instructions. Additional Information VACCINATE! IT SAVES LIVES! Members of the community who have not yet received the COVID-19 vaccine and would like to receive it can visit one of [facility] vaccine clinics. There are many vaccine clinic locations within the [facility]. For locations and available times, please visit [email or web address] It is important to note that some COVID mobile vaccine clinics are held outdoors and may be canceled in rainy or stormy conditions. To learn more about pediatric vaccinations (ages 5-11), we invite you to visit the [facility] webpage. https://www.[facility].org/pages/2 988-Qozkp-Jnfgclewwlt-Frequently-Asked -Questions.html To learn more about the COVID-19 vaccine, we invite you to visit the CDC website for a list of frequently asked questions. https://www.cdc.gov/coronavirus/2019-n cov/vaccines/faq.html [email or web address] Patient Portal Access Instructions: Stay connected with your healthcare team and access your personal medical information anytime with the [email or web address] Patient Portal. If you would like a full copy of your medical records please contact the [facility] Medical Records Department Wednesday through Wednesday between 8a.m. and 4:30p.m. Please follow the directions below to access the portal: 1.Access the email account you provided upon registration to the hospital.2.Look for an invitation email from [facility].3.Open the email and access the invitation link: Accept Invitation to [email or web address].Fill in the required kahn to create your account. Sign into [email or web address] with your username and password that you [...] you will allow to register on the [email or web address] Patient Portal for access to your information. You can also access the [email or web address] Patient Portal on the [employer] arabella. Simply click on Health Records under Health Data and then click on the [employer] logo. HOW TO SAFELY DISPOSE OF PRESCRIPTION [...] Call your local pharmacy or go to http://Careers360.Tip Network/3V1Lr8z to find one close to you.3.Make use of household items: Use cat litter or old coffee grounds to dispose medications if other options are not available. Mix your drugs with these household products, seal them in an airtight container and throw it into the garbage. Call [facility]: [phone] to be sure your drugs can be [...] aware that I should contact my doctor. Patient/Sales Order Specialist Signature: _ Date/Time: Relationship to Patient: Witness Name/Signature: Date/Time: [facility] Evaluation + Plan note Note Date & Type Note Facility Evaluation + Plan note No data available for this section [facility] Summary Purpose Family History No Family History Records Found No data available for this section No Family History Records Found Advance Directives No Advanced Directives Records FoundNo Advanced Directives Records Found Additional Source Comments (unrecognized sect ion and content) No Status Records FoundNo Status Records Found INFORMATION SOURCE (unrecogn ized section and content) DATE CREATED AUTHOR AUTHOR'S ORGANIZ ATION 06/04/2023 [facility] ([place]) Patient Care team informatio n (unrecognized section and content) Care Team Personnel Name: CARLOS GARNER MD Member Role: Primary Care Physician Address: Address: [address] [place] [address] Name: JEAN-PIERRE SHEN MD Position: ED Physician Member Role: ED Physician Address: Address: [facility] [address] [place] [address] Care Team Related Persons Name: ISAÍAS CHAUDHARY Care Team Personnel Name: CARLOS GARNER MD Member Role: Primary Care Physician Address: Address: [address] [place] [address] Name: RAGHAVENDRA León Position: ED RN Member Role: ED RN Name: BETY LEIGH MD Position: ED Physician Member Role: Attending Physician Address: Address: [facility] [address] [place] [address] Care Team Related Persons Name: ISAÍAS CHAUDHARY [...] BASED ON THE PRIMARY CLINICAL RECORDS. [employer] [facility]. provides no warranty or guarantee of the accuracy or completeness of information in this document.
[2023-10-08] MEDS: Ketorolac 30 MG/ML Syringe IM (00:04)
--- NOTE | 2023-10-08 00:54 | EX.ED.GUMALE ---
HPI History of Present Illness Chief Complaint: Male Pain/Injury Informant: patient Narrative Narrative: Patient is a 43-year-old male with past medical history of hypertension previous pericarditis tobacco use and previous inguinal hernia. 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 He states over the past 1 to 2 weeks he has been having increased pain in the right medial thigh that is worse with motion. He recently went and saw his family doctor who ordered a outpatient ultrasound secondary to the thigh/inguinal pain. Patient states today he had his foot/shoe stuck on a spot of glue on the floor and he had to strain to remove his leg from it. He states after this he had severe pain to the medial aspect of his right leg that has not responded to afiv-ofx-taecetb medications and making it difficult to ambulate and therefore he comes in for evaluation [facility] Medical History (Updated 10/08/23 @ 05:[address] Jake Mendez, DO) Acute pericarditis (09/27/20) Anxiety Back pain Back problem Cervicalgia Chewing tobacco use Dermatitis Elevated BP without diagnosis of hypertension Essential tremor Generalized anxiety disorder History of echocardiogram History of non-ST elevation myocardial infarction (NSTEMI) (09/27/20) History of pulmonary embolus (PE) (10/21/13) Hypertension Kidney stones Nocturia Right groin pain Substance abuse Urinary frequency Vertigo Home Medications buprenorphine 8 mg-naloxone 2 mg sublingual tablet 1 tab sublingual DAILY 02/10/23 [History Last Taken Unknown] gabapentin 300 mg capsule 300 mg PO Q12H 09/16/23 [History Last Taken Unknown] lorazepam 0.5 mg tablet (Ativan) 0.5 mg PO QHS 09/16/23 [History Last Taken Unknown] lisinopril 2.5 mg tablet 2.5 mg PO DAILY #30 tabs 10/01/23 [Rx Last Taken Unknown] diazepam 5 mg tablet (Valium) 5 mg PO TID PRN muscle spasm 5 days #15 tabs 10/08/23 [Rx Last Taken Unknown] oxycodone-acetaminophen 5 mg-325 mg tablet (Percocet) 1 tab PO Q6H PRN pain 3 days #12 tabs 10/08/23 [Rx Last Taken Unknown] Allergy/AdvReac Type Severity Reaction Status Date / Time No Known Allergies Allergy Verified 10/07/23 22:52 Family History Aunt Cancer CVA (cerebral vascular accident) Uncle Cancer Father Myocardial infarction Heart disease Colon cancer Mother Kidney disease Skin cancer Surgical History History of knee surgery History of left heart catheterization (09/27/20) Social History Smoking Status: Current every day smoker tobacco type: smokeless tobacco Smokeless tobacco user: chewing tobacco alcohol intake: never substance use type: does not use what type of physical activity do you participate in: none ROS ROS ED Constitutional Constitutional ED: Denies chills or fever(s) ENT ENT ED: Denies sore throat Cardiovascular Cardiovascular: Denies chest pain Respiratory/Chest Respiratory/Chest: Denies cough or dyspnea Gastrointestinal Gastrointestinal: Denies abdominal pain, diarrhea, nausea or vomiting Genitourinary Genitourinary ED: Reports other Details: No testicular pain ; Denies dysuria or hematuria Musculoskeletal Musculoskeletal: Reports other Details: Positive right leg pain ; Denies back pain Integumentary Denies rash Neurologic Neurologic: Denies headache(s) or paresthesias Hematologic/Lymphatic Hematologic/Lymphatic: Denies easy bleeding or easy bruising EXAM Physical Exam Const Vital Signs: 10/07/23 22:52 Temperature 98.2 F Temperature Source Temporal Pulse Rate 81 Respiratory Rate 20 H Blood Pressure 150/94 H Blood Pressure Mean 112 Pulse Ox 97 Oxygen Delivery Method Room Air Positive well nourished and well developed General Appearance ED: well developed; Negative for pallor HEENT HEENT Narrative: Normocephalic atraumatic Eyes PERRL and EOMs intact bilaterally Neck supple Resp normal respiratory effort and clear to auscultation bilaterally Cardio regular rate and regular rhythm GI non-tender, non-distended and no masses Auscultation: normoactive bowel sounds Palpation: soft Back/Spine Back/Spine Narrative: No bony deformity or step-off of the thoracic or lumbar spine no midline pain on palpation No saddle anesthesia. Negative straight leg raise. No clonus or Babinski. Patellar reflexes are plus 2 out of 4 bilaterally Extremity Extremity Narrative: Right lower extremity is neurovascularly intact. No asymmetric edema no pitting edema negative Homans' sign bilaterally No overlying soft tissue changes to suggest trauma or infection Compartments are soft going against compartment syndrome No increased pain palpation of the medial right thigh where patient has pain However with active and passive range of motion there is increased pain along the medial thigh near the vastus medialis. Neuro oriented x3, CN's II-XII intact bilaterally and no sensory deficits noted Sensorium / Orientation: alert Psych mental status grossly normal Skin no rashes or lesions noted General Skin Exam: Negative for jaundice or pallor Lesions: no lesions Rashes: no rashes Trauma: Negative for abrasion MDM MDM MDM Narrative Medical decision making narrative: Patient presented to the ER hypertensive but has a past medical history of this. Initially an ultrasound was obtained upon his arrival as he reported his family doctor had concerned this could be scrotal/inguinal in nature. The ultrasound revealed no acute findings. However after talking to the patient further it was delineated that his pain is more in the thigh than in the genitals. Initial diagnosis is for muscular strain versus spasm versus compartment syndrome versus infection versus neurologic impingement. As there is no overlying erythema or warmth my concern for cellulitis or abscess causing the pain is low. There is no crepitance palpated to suggest a gangrenous infection and there is no obvious bony deformity or joint effusion to suggest that this is bursitis or bony issue. Therefore there is no need for an x-ray. The fact that the patient's been having pain for multiple weeks that worsened after he had to strain indicates this is most likely musculoskeletal strain and spasm and therefore he can be treated symptomatically as there is no signs of infection or DVT or inguinal involvement History & Record Review Discussion w/independent historian: Patient Radiography Diagnostic Testing: Clinical Impression(s) from Imaging Studies Testicular Ultrasound 10/07/23 22:58 IMPRESSION: Normal bilateral testicles. Findings are suspicious for upper limits of normal venous structures in the scrotal tissues suggesting small varicoceles. No visualized torsion. Asymmetric slight increased appearance of the vascularity of the right epididymal head in size compared to the left could consider possible epididymitis. Electronically Signed: More Bloom MD at 0:18 EST , Discharge Plan Triage Chief Complaint: Male Pain/Injury ED Provider: Jake Mendez Dx/Rx/DC Orders Clinical Impression: Muscle spasm, Muscle strain of right lower extremity, Hypertension Instructions: ED Muscle Spasm, ED Muscle Strain, Extremity Prescriptions: New diazepam [Valium] 5 mg tablet 5 mg PO TID PRN (Reason: muscle spasm) 5 Days Qty: 15 0RF oxycodone-acetaminophen [Percocet] 5-325 mg tablet 1 tab PO Q6H PRN (Reason: pain) 3 Days Qty: 12 0RF No Action buprenorphine-naloxone 8-2 mg tablet, sublingual 1 tab sublingual DAILY lisinopril 2.5 mg tablet 2.5 mg PO DAILY Qty: 30 0RF gabapentin 300 mg capsule 300 mg PO Q12H Patient Comments: TAKE ONE CAPSULE BY MOUTH 3 TIMES DAILY lorazepam [Ativan] 0.5 mg tablet 0.5 mg PO QHS Primary Care Provider: Deborah Leonard Referrals: Deborah Leonard MD [Primary Care Provider] - Activity Restrictions/Additional Instructions: Begin taking the Valium/diazepam for improved muscle relaxation/muscle spasm control and therefore stopped taking your Ativan/diazepam while you are doing this. Continue to stretch and heat the area to reduce pain and speed healing. Your ultrasound did not show any sign of testicular blood loss infection or hernia. There is a possibility this is stemming from nerve impingement of your low back but as the pain greatly worsens with motion I feel this is related to muscle strain and spasm. Return to the ER should you have any further concerns otherwise follow-up with your family doctor for repeat evaluation Disposition Disposition: Home, Self Care Discharge Date/Time: 10/08/23 01:27
== END 2023-10-08 01:27 | disposition home or self-care (01) ==
PROVIDERS: Emergency Provider Emergency Medicine; PCP Internal Medicine; Visit Provider Emergency Medicine
DX: M62.838 Other muscle spasm (principal); S76.911A Strain of unspecified muscles, fascia and tendons at thigh level, right thigh, initial encounter; I10 Essential (primary) hypertension; I25.2 Old myocardial infarction; F17.220 Nicotine dependence, chewing tobacco, uncomplicated; F41.9 Anxiety disorder, unspecified; Z86.711 Personal history of pulmonary embolism; Z79.899 Other long term (current) drug therapy; X58.XXXA Exposure to other specified factors, initial encounter
CPT/HCPCS: 76870; 93976; 96372; 99283

== ENCOUNTER → 2023-10-09 | Outpatient (CLI) | payer MEDICAID, SELFPAY ==
--- NOTE | 2023-10-09 07:51 | US_ITS ---
STUDY: SUPERFICIAL ULTRASOUND - THE RIGHT GROIN REASON FOR EXAM: Male, 43 years old. RT GROIN LYMPH NODES- ? moderate- severe rt groin pain TECHNIQUE: A superficial ultrasound was performed with real-time and static reynaga-scale imaging. COMPARISON: None. FINDINGS: Examination of the right groin was performed demonstrating mild edema or cellulitis within the subcutaneous fat. There is no cystic mass or solid nodule. There is no fluid collection. There are no enlarged lymph nodes observed. US/Ext Non Vasc Limited/Soft Tiss IMPRESSION: No evidence for focal mass or fluid collection. CT recommended for further evaluation if clinically warranted Electronically Signed: Klever Menchaca MD at 21:47 EST ,
--- OUTSIDE RECORDS SUMMARY | 2023-10-09 07:58 | XMS RPT_ITS | CCD ---
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 Unavailable Unavailable TIFFANY PARKS Unavailable Unavailable CARLOS GARNER MD Primary Care Physician [phone] HERMELINDA WRIGHT, JEAN-PIERRE Goodrich Attending Unavailable CARLOS [...] Body temperature 98.96 [degF] BETY LEIGH MD [facility] 05-24-2023 16:51-0400 Diastolic Blood Pressure Non-Invasive 98 1 BETY LEIGH MD [facility] 05-24-2023 16:51-0400 Heart rate 68 /min BETY LEIGH MD [facility] 05-24-2023 16:51-0400 Respiratory rate 18 /min BETY LEIGH MD [facility] 05-24-2023 16:51-0400 Systolic Blood Pressure Non-Invasive 148 1 BETY LEIGH MD [facility] 03-09-2023 17:19-0400 Body height 180 cm JEAN-PIERRE SHEN MD [facility] 03-09-2023 17:19-0400 Body temperature 98.24 [degF] JEAN-PIERRE SHEN MD [facility] 03-09-2023 17:19-0400 Body weight 77 kg JEAN-PIERRE SHEN MD [facility] 03-09-2023 17:19-0400 Diastolic Blood Pressure Non-Invasive 92 1 JEAN-PIERRE SHEN MD [facility] 03-09-2023 17:19-0400 Heart rate 66 /min JEAN-PIERRE SHEN MD [facility] 03-09-2023 17:19-0400 Respiratory rate 16 /min JEAN-PIERRE SHEN MD [facility] 03-09-2023 17:19-0400 Systolic Blood Pressure Non-Invasive 136 1 JEAN-PIERRE SHEN MD [facility] Encounters Encounter Date Encounter Type Care Provider Facility Start: 05-24-2023 End: 05-24-2023 Emergency department patient visit BETY LEIGH MD Facility:B Start: 05-24-2023 End: 05-24-2023 Emergency department patient visit BETY LEIGH MD [facility] Start: 03-09-2023 End: 03-09-2023 Emergency department patient visit JEAN-PIERRE SHEN MD Facility:B Start: 03-09-2023 End: 03-09-2023 Emergency department patient visit JEAN-PIERRE SHEN MD [facility] Start: 01-22-2018 End: 01-22-2018 Emergency department patient visit NO Shona Facility:[facility] Immunizations Immunization Date Immunization Notes Care Provider Fa cility 12-23-2020 tetanus toxoid, redu lan diphtheria toxoid, and acellular pertussis vaccine, adsorbed JEAN-PIERRE SHEN MD [facility] Payers Date Payer Category Payer Unknown [id number] 2018 Unknown [id number] 1980 Unknown [id number] 1980 Unknown [id number] Social History Date Type Detail Facility Tobacco smoking status Smokes to bacco daily (finding) [facility] Sex Assigned At Sex [facility] Functional Status Date Assessment Result Facility 03-09-2023 Functional Status ID band on, Call device within reach, Bed in low position, Wheels locked, Upper/Half-Length side-rails up, Phone within reach, personal items within reach [facility] Mental Status Date Assessment Result Facility 03-09-2023 Mental Status Oriented x 4 [facility] Discharge instructions 05-24-2023 Note Date & Type [...] nail. This may need to be drained. [phone] [employer]. [address] [place] [address], [place] [address]. All rights reserved. This information is not intended as a substitute for professional medical care. Always follow your healthcare professional's instructions. Follow Up Care 05/24/2023 16:51:33 With:CARLOS GARNER MD Address: [address] [place] [address] [place] [address] [phone] When:2-4 days [facility] Emergency department Discharge summary 05-24-2023 Note [...] When Within 2-4 days Where: [place] [address]- [phone] Allergies NKA Medications Please ask your primary [...] nail. This may need to be drained. [phone] [employer]. [address] [place] [address]. All rights reserved. This information is not intended as a substitute for professional medical care. Always follow your healthcare professional's instructions. Additional Information VACCINATE! IT SAVES LIVES! Members of the community who have not yet received the COVID-19 vaccine and would like to receive it can visit one of [facility] vaccine clinics. There are many vaccine clinic locations within the [facility]. For locations and available times, please visit [email or web address].g [email or web address] It is important to note that some COVID mobile vaccine clinics are held outdoors and may be canceled in rainy or stormy conditions. To learn more about pediatric vaccinations (ages 5-11), we invite you to visit the [facility] webpage. https://www.[facility].org/pa ges/9975-Uoltq-Kbndlhbbjck-Freque iggq-Ntuca-Xarkkjieh.html To learn more about the COVID-19 vaccine, we invite you to visit the CDC website for a list of frequently asked questions. https://www.cdc.gov/coronavirus/2 019-ncov/vaccines/faq.html [facility] Patient Portal Access Instructions: Stay connected with your healthcare team and access your personal medical information anytime with the [facility] Patient Portal. If you would like a full copy of your medical records please contact the [facility] Medical Records Department Wednesday through Wednesday between 8a.m. and 4:30p.m. Please follow the directions below to access the portal: 1.Access the email account you provided upon registration to the hospital.2.Look for an invitation email from [facility].3.Open the email and access the invitation link: Accept Invitation to [facility]4.Fill in the required kahn to create your account. Sign into [email or web address] with your username and password that you [...] you will allow to register on the [facility] Patient Portal for access to your information. You can also access the [facility] Patient Portal on the [employer] arabella. Simply click on Health Records under [...] Call your local pharmacy or go to [email or web address]/[email or web address] to find one close to you.3.Make use of household items: Use cat litter or old coffee grounds to dispose medications if other options are not available. Mix your drugs with these household products, seal them in an airtight container and throw it into the garbage. Call [facility]: [phone] to be sure your drugs can be [...] aware that I should contact my doctor. Patient/Clinical Scientist Signature: Date/Time: Relationship to Patient: ____ Witness Name/Signature: Date/Time: [facility] Clinical Note 05-24-2023 Note Date & [...] Date: 05/24/2023 5:33:00 PM Ordering Provider: BETY LEIHG [facility] Discharge instructions 03-09-2023 Note Date & [...] painful when eating. You may use an glyb-kkn-auurhvn local numbing solution for pain relief. If [...] off before 7 days Wound edges re-open [phone] [employer]. [address] [place] [address], [place] [address]. All rights reserved. This information is not intended as a substitute for professional medical care. Always follow your healthcare professional's instructions. Follow Up Care 03/09/2023 17:16:56 With:CARLOS GARNER MD Address: [address] [place] [address] [phone] When:2-4 days only if needed With:Go to emergency room if symptoms worsen Address:Unknown When:2-4 days [facility] Clinical Note 03-09-2023 Note Date & Type Note Facility 03-09-2023 Note Discharge Instructions Thank you for allowing [facility] to assist you with your healthcare needs. [...] days, only if needed Where: [address] [place] [address]- [phone] Follow Up with Go to emergency room [...] painful when eating. You may use an qofx-uxt-uqysngc local numbing solution for pain relief. If [...] off before 7 days Wound edges re-open [phone] [employer]. [address] [place] [address]. All rights reserved. This information is not intended as a substitute for professional medical care. Always follow your healthcare professional's instructions. Additional Information VACCINATE! IT SAVES LIVES! Members of the community who have not yet received the COVID-19 vaccine and would like to receive it can visit one of [facility] vaccine clinics. There are many vaccine clinic locations within the [facility]. For locations and available times, please visit www.[email or web address].[place].gov/. It is important to note that some COVID mobile vaccine clinics are held outdoors and may be canceled in rainy or stormy conditions. To learn more about pediatric vaccinations (ages 5-11), we invite you to visit the [facility] webpage. https://www.[facility].org/pages/2 729-Ollto-Imgjsvubagd-Frequently-Asked -Questions.html To learn more about the COVID-19 vaccine, we invite you to visit the CDC website for a list of frequently asked questions. https://www.cdc.gov/coronavirus/2019-n cov/vaccines/faq.html [facility] Patient Portal Access Instructions: Stay connected with your healthcare team and access your personal medical information anytime with the [facility] Patient Portal. If you would like a full copy of your medical records please contact the [facility] Medical Records Department Wednesday through Wednesday between 8a.m. and 4:30p.m. Please follow the directions below to access the portal: 1.Access the email account you provided upon registration to the hospital.2.Look for an invitation email from [facility].3.Open the email and access the invitation link: Accept Invitation to [facility]4.Fill in the required kahn to create your account. Sign into [email or web address] with your username and password that you [...] you will allow to register on the [facility] Patient Portal for access to your information. You can also access the [facility] Patient Portal on the [facility] arabella. Simply click on Health Records under Health Data and then click on the [employer] logo. HOW TO SAFELY DISPOSE OF PRESCRIPTION [...] Call your local pharmacy or go to [email or web address] to find one close to you.3.Make use of household items: Use cat litter or old coffee grounds to dispose medications if other options are not available. Mix your drugs with these household products, seal them in an airtight container and throw it into the garbage. Call [facility]: [phone] to be sure your drugs can be [...] aware that I should contact my doctor. Patient/Clinical Scientist Signature: _ Date/Time: Relationship to Patient: Witness Name/Signature: Date/Time: [facility] Evaluation + Plan note Note Date & Type Note Facility Evaluation + Plan note No data available for this section [facility] Summary Purpose Family History No Family History Records Found No data available for this section No Family History Records Found Advance Directives No Advanced Directives Records FoundNo Advanced Directives Records Found Additional Source Comments (unrecognized sect ion and content) No Status Records FoundNo Status Records Found INFORMATION SOURCE (unrecogn ized section and content) DATE CREATED AUTHOR AUTHOR'S ORGANIZ ATION 06/04/2023 [facility] ([place]) Patient Care team informatio n (unrecognized section and content) Care Team Personnel Name: CARLOS GARNER MD Member Role: Primary Care Physician Address: Address: [address] [place] [address] Name: JEAN-PIERRE SHEN MD Position: ED Physician Member Role: ED Physician Address: Address: [facility] [address] [place] [address] Care Team Related Persons Name: ISAÍAS CHAUDHARY Care Team Personnel Name: CARLOS GARNER MD Member Role: Primary Care Physician Address: Address: [address] [place] [address] Name: RAGHAVENDRA León Position: ED RN Member Role: ED RN Name: BETY LEIGH MD Position: ED Physician Member Role: Attending Physician Address: Address: [facility] [address] [place] [address] Care Team Related Persons Name: ISAÍAS CHAUDHARY [...] BASED ON THE PRIMARY CLINICAL RECORDS. [facility]. provides no warranty or guarantee of the accuracy or completeness of information in this document.
== END | disposition home or self-care (01) ==
LOC: US 07:49
PROVIDERS: PCP Internal Medicine; Referring Provider Nurse Practitioner; Visit Provider Nurse Practitioner
DX: R10.2 Pelvic and perineal pain (principal)
CPT/HCPCS: 76882

== ENCOUNTER → 2023-11-02 | Outpatient (CLI) | payer MEDICAID, SELFPAY ==
--- NOTE | 2023-11-02 08:00 | CT_ITS ---
INDICATION: pain EXAMINATION: CT ABDOMEN AND PELVIS WITHOUT CONTRAST TECHNIQUE: Helically acquired images were obtained of the abdomen and pelvis without oral or IV contrast. A radiation dose optimization technique was used for this scan. IV Contrast dosage and agent: None. Oral contrast: None. RADIATION DOSAGE (If Supplied By Facility): CTDIvol = ( 6.65 ) mGy, DLP = ( 363.22 ) mGycm COMPARISON: Prior study dated: 04/28/2022 FINDINGS: LOWER CHEST: Mild scarring in the left lower lung. No cardiomegaly or pericardial effusion. LIVER: Homogeneous. No focal mass. GALLBLADDER AND BILIARY TREE: No calcified gallstones. No gallbladder distension or wall edema. No intra- or extrahepatic biliary ductal dilation. PANCREAS: No focal cystic or solid mass. SPLEEN: Normal size without focal cystic or solid mass. ADRENAL GLANDS: No nodules. KIDNEYS AND URETERS: Normal renal size and position. No hydronephrosis. PERITONEUM: No ascites or free air. No other fluid collection. BOWEL: The appendix is not definitely identified. No inflammatory changes are seen in the right lower quadrant. No stomach or bowel distension. No focal inflammatory change. LYMPH NODES: No enlarged mesenteric or retroperitoneal lymph nodes. Few small normal-sized nodes. VESSELS: Aorta is non-dilated. URINARY BLADDER: Unremarkable. REPRODUCTIVE ORGANS: No pelvic masses. ABDOMINAL WALL: Umbilical hernia containing fat is again seen unchanged. BONES: No lytic or blastic abnormality. CT/Abdomen/Pelvis without Cont IMPRESSION: 1. No focal acute inflammatory process. 2. Small umbilical hernia containing fat. Electronically Signed: Edwin Zamora MD at 13:07 EST ,
--- OUTSIDE RECORDS SUMMARY | 2023-11-02 08:19 | XMS RPT_ITS | CCD ---
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 Unavailable Unavailable TIFFANY PARKS Unavailable Unavailable CARLOS GARNER MD Primary Care Physician [phone] HERMELINDA WRIGHT, JEAN-PIERRE Goodrich Attending Unavailable CARLOS [...] Body temperature 98.96 [degF] BETY LEIGH MD [facility] 05-24-2023 16:51-0400 Diastolic Blood Pressure Non-Invasive 98 1 BETY LEIGH MD [facility] 05-24-2023 16:51-0400 Heart rate 68 /min BETY LEIGH MD [facility] 05-24-2023 16:51-0400 Respiratory rate 18 /min BETY LEIHG MD [facility] 05-24-2023 16:51-0400 Systolic Blood Pressure Non-Invasive 148 1 BETY LEIGH MD [facility] 03-09-2023 17:19-0400 Body height 180 cm JEAN-PIERRE SHEN MD [facility] 03-09-2023 17:19-0400 Body temperature 98.24 [degF] JEAN-PIERRE SHEN MD [facility] 03-09-2023 17:19-0400 Body weight 77 kg JEAN-PIERRE SHEN MD [facility] 03-09-2023 17:19-0400 Diastolic Blood Pressure Non-Invasive 92 1 JEAN-PIERRE SHEN MD [facility] 03-09-2023 17:19-0400 Heart rate 66 /min JEAN-PIERRE SHEN MD [facility] 03-09-2023 17:19-0400 Respiratory rate 16 /min JEAN-PIERRE SHEN MD [facility] 03-09-2023 17:19-0400 Systolic Blood Pressure Non-Invasive 136 1 JEAN-PIERRE SHEN MD [facility] Encounters Encounter Date Encounter Type Care Provider Facility Start: 05-24-2023 End: 05-24-2023 Emergency department patient visit BETY LEIGH MD Facility:B Start: 05-24-2023 End: 05-24-2023 Emergency department patient visit BETY LEIGH MD [facility] Start: 03-09-2023 End: 03-09-2023 Emergency department patient visit JEAN-PIERRE SHEN MD Facility:B Start: 03-09-2023 End: 03-09-2023 Emergency department patient visit JEAN-PIERRE SHEN MD [facility] Start: 01-22-2018 End: 01-22-2018 Emergency department patient visit NO Shona Facility:[facility] Immunizations Immunization Date Immunization Notes Care Provider Fa cility 12-23-2020 tetanus toxoid, redu lan diphtheria toxoid, and acellular pertussis vaccine, adsorbed JEAN-PIERRE SHEN MD [facility] Payers Date Payer Category Payer Unknown [id number] 2018 Unknown [id number] 1980 Unknown [id number] 1980 Unknown [id number] Social History Date Type Detail Facility Tobacco smoking status Smokes to bacco daily (finding) [facility] Functional Status Date Assessment Result Facility 03-09-2023 Functional Status ID band on, Call device within reach, Bed in low position, Wheels locked, Upper/Half-Length side-rails up, Phone within reach, personal items within reach [facility] Mental Status Date Assessment Result Facility 03-09-2023 Mental Status Oriented x 4 [facility] Discharge instructions 05-24-2023 Note Date & [...] nail. This may need to be drained. [id number] [employer]. [address] [place] [address], [place] [address]. All rights reserved. This information is not intended as a substitute for professional medical care. Always follow your healthcare professional's instructions. Follow Up Care 05/24/2023 16:51:33 With:CARLOS GARNER MD Address: [address] [place] [address] [place] [address]- [phone] When:2-4 days [facility] Emergency department Discharge summary 05-24-2023 Note Date [...] When Within 2-4 days Where: [address] [place] [address]- [phone] Allergies NKA Medications Please ask your primary [...] nail. This may need to be drained. [phone] [employer]. [address] [place] [address]. All rights reserved. This information is not intended as a substitute for professional medical care. Always follow your healthcare professional's instructions. Additional Information VACCINATE! IT SAVES LIVES! Members of the community who have not yet received the COVID-19 vaccine and would like to receive it can visit one of [facility] vaccine clinics. There are many vaccine clinic locations within the [facility]. For locations and available times, please visit [email or web address] It is important to note that some COVID mobile vaccine clinics are held outdoors and may be canceled in rainy or stormy conditions. To learn more about pediatric vaccinations (ages 5-11), we invite you to visit the [facility] webpage. [email or web address] [email or web address]-[email or web address] rknp-Nljuh-[email or web address].html To learn more about the COVID-19 vaccine, we invite you to visit the CDC website for a list of frequently asked questions. https://www.cdc.gov/coronavirus/2 019-ncov/vaccines/faq.html [facility] Patient Portal Access Instructions: Stay connected with your healthcare team and access your personal medical information anytime with the [facility] Patient Portal. If you would like a full copy of your medical records please contact the [facility] Medical Records Department Wednesday through Wednesday between 8a.m. and 4:30p.m. Please follow the directions below to access the portal: 1.Access the email account you provided upon registration to the hospital.2.Look for an invitation email from [facility].3.Open the email and access the invitation link: Accept Invitation to [facility]4.Fill in the required kahn to create your account. Sign into [email or web address] with your username and password that you [...] you will allow to register on the [facility] Patient Portal for access to your information. You can also access the [facility] Patient Portal on the [employer] arabella. Simply click on Health Records under [...] Call your local pharmacy or go to [email or web address] to find one close to you.3.Make use of household items: Use cat litter or old coffee grounds to dispose medications if other options are not available. Mix your drugs with these household products, seal them in an airtight container and throw it into the garbage. Call [facility]: [phone] to be sure your drugs can be [...] aware that I should contact my doctor. Patient/Immigration Investigator Signature: Date/Time: Relationship to Patient: ____ Witness Name/Signature: Date/Time: [facility] Clinical Note 05-24-2023 Note Date & Type [...] 05/24/2023 5:33:00 PM Ordering Provider: BETY LEIGH [facility] Discharge instructions 03-09-2023 Note Date & Type [...] painful when eating. You may use an kfbz-qqz-nbrqkwy local numbing solution for pain relief. If [...] off before 7 days Wound edges re-open [phone] [employer]. [address] [place] [address], [place] [address]. All rights reserved. This information is not intended as a substitute for professional medical care. Always follow your healthcare professional's instructions. Follow Up Care 03/09/2023 17:16:56 With:CARLOS GARNER MD Address: [address] [place] [address] [phone] When:2-4 days only if needed With:Go to emergency room if symptoms worsen Address:Unknown When:2-4 days [facility] Clinical Note 03-09-2023 Note Date & Type Note Facility 03-09-2023 Note Discharge Instructions Thank you for allowing [facility] to assist you with your healthcare needs. [...] days, only if needed Where: [address] [place] [address]- [phone] Follow Up with Go to emergency room [...] painful when eating. You may use an zazc-ubh-gedpgve local numbing solution for pain relief. If [...] off before 7 days Wound edges re-open [phone] [employer]. [address] [place] [address]. All rights reserved. This information is not intended as a substitute for professional medical care. Always follow your healthcare professional's instructions. Additional Information VACCINATE! IT SAVES LIVES! Members of the community who have not yet received the COVID-19 vaccine and would like to receive it can visit one of [facility] vaccine clinics. There are many vaccine clinic locations within the [facility]. For locations and available times, please visit [email or web address] It is important to note that some COVID mobile vaccine clinics are held outdoors and may be canceled in rainy or stormy conditions. To learn more about pediatric vaccinations (ages 5-11), we invite you to visit the [facility] webpage. https://www.[email or web address].org/pages/2 343-Xkohe-Vhwjnujwjuy-Frequently-Asked -Questions.html To learn more about the COVID-19 vaccine, we invite you to visit the CDC website for a list of frequently asked questions. https://www.cdc.gov/coronavirus/2019-n cov/vaccines/faq.html [facility] Patient Portal Access Instructions: Stay connected with your healthcare team and access your personal medical information anytime with the [facility] Patient Portal. If you would like a full copy of your medical records please contact the [facility] Medical Records Department Wednesday through Wednesday between 8a.m. and 4:30p.m. Please follow the directions below to access the portal: 1.Access the email account you provided upon registration to the hospital.2.Look for an invitation email from [facility].3.Open the email and access the invitation link: Accept Invitation to [facility]4.Fill in the required kahn to create your account. Sign into www.[email or web address] with your username and password that you [...] you will allow to register on the [facility] Patient Portal for access to your information. You can also access the [facility] Patient Portal on the [employer] arabella. Simply click on Health Records under Health Data and then click on the [employer] logo. HOW TO SAFELY DISPOSE OF PRESCRIPTION [...] Call your local pharmacy or go to [email or web address] to find one close to you.3.Make use of household items: Use cat litter or old coffee grounds to dispose medications if other options are not available. Mix your drugs with these household products, seal them in an airtight container and throw it into the garbage. Call [facility]: [phone] to be sure your drugs can be [...] aware that I should contact my doctor. Patient/Immigration Investigator Signature: _ Date/Time: Relationship to Patient: Witness Name/Signature: Date/Time: [facility] Evaluation + Plan note Note Date & Type Note Facility Evaluation + Plan note No data available for this section [facility] Summary Purpose Family History No Family History Records Found No data available for this section No Family History Records Found Advance Directives No Advanced Directives Records FoundNo Advanced Directives Records Found Additional Source Comments (unrecognized sect ion and content) No Status Records FoundNo Status Records Found INFORMATION SOURCE (unrecogn ized section and content) DATE CREATED AUTHOR AUTHOR'S ORGANIZ ATION 06/04/2023 [facility] ([place]) Patient Care team informatio n (unrecognized section and content) Care Team Personnel Name: CARLOS GARNER MD Member Role: Primary Care Physician Address: Address: [address] [place] [address] Name: JEAN-PIERRE SHEN MD Position: ED Physician Member Role: ED Physician Address: Address: [facility] [address] [place] [address] Care Team Related Persons Name: ISAÍAS CHAUDHARY Care Team Personnel Name: CARLOS GARNER MD Member Role: Primary Care Physician Address: Address: [address] [place] [address] Name: RAGHAVENDRA León Position: ED RN Member Role: ED RN Name: BETY LEIGH MD Position: ED Physician Member Role: Attending Physician Address: Address: [facility] [address] [place] [address] Care Team Related Persons Name: ISAÍAS CHAUDHARY [...] BASED ON THE PRIMARY CLINICAL RECORDS. [employer] [facility]. provides no warranty or guarantee of the accuracy or completeness of information in this document.
== END | disposition home or self-care (01) ==
LOC: CT 07:58
PROVIDERS: PCP Internal Medicine; Referring Provider Physician Assistant; Visit Provider Physician Assistant
DX: R10.31 Right lower quadrant pain (principal)
CPT/HCPCS: 74176

== ENCOUNTER → 2023-11-26 | Outpatient (CLI) | payer MEDICAID, SELFPAY ==
[2023-11-26 12:23] LABS: Absolute Lymphocyte Count 1.37 X10^3/uL (0.83-4.51); Absolute Neutrophil Count 5.6 X10^3/uL (2.0-7.7); Basophil# 0.04 X10^3/uL; Basophil% 0.5 % (0-1); Eosinophil# 0.04 X10^3/uL; Eosinophils% 0.5 % (0-5); Hematocrit 46.4 % (40-54); Hemoglobin 15.2 g/dL (13.0-16.5); Lymphocyte # 1.37 X10^3/ul (0.83-4.51); Lymphocyte % 18.1 % (19-41); Mean Corp Hgb Conc 32.8 g/dL (32-36); Mean Corpuscular Hgb 27.9 pg (27.0-32.0); Mean Corpuscular Volume 85.3 fL (80-94); Mean Platelet Vol. 12.3 fl (6.2-12.0); Monocyte# 0.49 X10^3/uL; Monocyte% 6.5 % (0-10); NRBC Flagged by Analyzer 0 % (0-5); Neutrophil # 5.59 X10^3/uL (2.7-7.7); Platelet Count 219 K/mm3 (150-450); RBC Distribution Width CV 13.1 % (11.6-14.6); RBC Distribution Width SD 40.1 fl (35.1-43.9); Red Blood Count 5.44 M/mm3 (4.6-6.2); White Blood Count 7.6 K/mm3 (4.4-11.0)
[2023-11-26 13:34] LABS: ALB/GLOB Ratio 1.3 RATIO (0.9-2.4); AST(SGOT) 15 U/L (15-37); Alanine Aminotransfer ALT/SGPT 30 U/L (16-61); Albumin, Serum 4.3 g/dL (3.2-5.0); Alkaline Phosphatase 68 U/L (45-117); Anion Gap 4 (5-15); BUN 12 mg/dL (7-18); BUN/Creat Ratio 16.9 RATIO (10-20); Calcium,Total 9.2 mg/dL (8.5-10.1); Chloride 106 mmol/L (98-107); Creatinine, Serum 0.71 mg/dL (0.70-1.30); EST Glomerular Filtration Rate 128 mL/min (>60); Est Glom Filt Rate - Afr Amer 154 mL/min (>60); Globulin 3.3 g/dL (2.2-4.2); Glucose 108 mg/dL (74-106); Potassium 4.2 mmol/L (3.5-5.1); Protein, Total 7.6 g/dL (6.4-8.2); Sodium Level 139 mmol/L (136-145); Thyroid Stim Hormone (TSH) 1.23 uIU/mL (0.358-3.74)
== END | disposition home or self-care (01) ==
LOC: BIMLAB 09:50
PROVIDERS: PCP Internal Medicine; Referring Provider Physician Assistant; Visit Provider Physician Assistant
DX: F41.1 Generalized anxiety disorder (principal); I10 Essential (primary) hypertension
CPT/HCPCS: 36415; 80053; 84443; 85025

== ENCOUNTER 2023-12-28 08:38 | Observation (INO) | payer MEDICAID, SELFPAY ==
[2023-12-28] VITALS (8 sets, daily range): BP systolic 127–160; BP diastolic 89–103; PULSE 58–76; RESP 14–18; TEMP 36.4–36.8; O2SAT 97–100; BMI 24.3; BMI 21.9
--- NOTE | 2023-12-28 08:42 | EX.ED.DYSGE1 ---
HPI History of Present Illness Chief Complaint: Substance Abuse [facility] Medical History Acute pericarditis (09/27/20) Anxiety Back pain Back problem Cervicalgia Chewing tobacco use Dermatitis Elevated BP without diagnosis of hypertension Essential tremor Generalized anxiety disorder History of echocardiogram History of non-ST elevation myocardial infarction (NSTEMI) (09/27/20) History of pulmonary embolus (PE) (10/21/13) Hypertension Kidney stones Nocturia Right groin pain Substance abuse Urinary frequency Vertigo Home Medications buprenorphine 8 mg-naloxone 2 mg sublingual tablet 1 tab sublingual DAILY 02/10/23 [History Last Taken 12/23/23] lisinopril 2.5 mg tablet 2.5 mg PO DAILY #90 tabs 11/12/23 [Rx Last Taken Unknown] escitalopram oxalate 5 mg tablet (Lexapro) 5 mg PO DAILY #30 tabs 11/26/23 [Rx Last Taken 12/27/23] Allergy/AdvReac Type Severity Reaction Status Date / Time No Known Allergies Allergy Verified 12/28/23 08:40 Family History Aunt Cancer CVA (cerebral vascular accident) Uncle Cancer Father Myocardial infarction Heart disease Colon cancer Mother Kidney disease Skin cancer Surgical History History of knee surgery History of left heart catheterization (09/27/20) Social History Smoking Status: Never smoker Smokeless tobacco user: chewing tobacco alcohol intake: never substance use type: does not use what type of physical activity do you participate in: none EXAM Physical Exam Const Vital Signs: 12/28/23 08:38 12/28/23 09:38 12/28/23 10:00 Temperature 97.5 F L Temperature Source Oral Pulse Rate 70 76 74 Respiratory Rate 16 16 16 Blood Pressure 160/103 H 150/98 H 150/90 H Blood Pressure Mean 122 115 110 Pulse Ox 100 99 99 Oxygen Delivery Method Room Air Room Air Room Air MDM MDM MDM Narrative Medical decision making narrative: HISTORY OF PRESENT ILLNESS: 43-year-old male presents requesting detox from opiates. Last use was this morning. States he takes pills. Approximately 10 Percocet pills per day. Denies any IV drug use. No chest pain or back pain. No bowel or bladder incontinence or urinary retention. REVIEW OF SYSTEMS: Pertinent positives: Substance abuse Pertinent negatives: Chest pain, back pain, fever, shortness of breath, focal numbness or weakness PHYSICAL EXAM: Nursing triage notes reviewed, Vital signs reviewed Constitutional: please see mdm HENT: MMM Eyes: Pupils equal round and reactive to light, Extraocular muscles intact Neck: No stridor, no JVD, full neck ROM Lungs: Clear to auscultation, No wheezing or rales. No increased work of breathing, no conversational dyspnea, no accessory muscle use, no nasal flaring. No respiratory distress noted Heart: Regular rate and rhythm, No murmurs, No rubs and No gallops, 2+ distal pulses (radial, femoral, posterior tibial) in all extremities Abdomen: Soft, there is no tenderness, rigidity, rebound or guarding, no obvious peritoneal signs, no palpable pulsatile abdominal masses, no auscultated abdominal bruit : No CVAT Extremities: No edema Neuro: No focal neurological deficits, cranial nerves II through XII intact, 5/5 strength in all extremities. Intact sensation to light touch in all extremities, 2+ reflexes bilateral patella tendons. Normal gait. No ataxia. Skin: No rash or lesions noted MEDICAL DECISION MAKING: Chief Complaint: Substance abuse detoxification External records reviewed: Outpatient records reviewed: Last outpatient visit in October 2023 Factors affecting care: Substance abuse, hypertension Social determinants of health: Polysubstance abuse History obtained from others: The patient's Consults: Internal medicine MDM Narrative: Patient was hemodynamically stable, afebrile, nontoxic-appearing. Exam without stigmata of VTE, pericarditis, endocarditis, epidural abscess Medical clearance labs were obtained ALL IMAGES (IF OBTAINED) HAVE BEEN PERSONALLY REVIEWED AND INTERPRETED BY MYSELF. Serum alcohol negative CBC without leukocytosis, severe anemia, no thrombocytopenia. CMP without evidence of acute kidney injury, significant electrolyte abnormality, anion gap, no evidence hepatobiliary pathology. Urine tox cream positive for opiates consistent with history The patient is medically cleared. Will communicate with hospitalist to admit to our ramp program The patient and/or family, caregivers express understanding. The patient and/or family, caregivers agrees with the plan. Shared decision making: I will have a discussion with the patient and or visitors regarding risk/benefits of further testing or admission. They will be made aware of of the risk/benefits inherent in this decision they will be given the opportunity to voice understanding. Total critical care time today provided was at least 0 minutes. This excludes separately billable procedures. Critical care time (if documented) is secondary to the patient having high probability of clinically significant/life threatening deterioration in the patient's condition which required my urgent intervention. Impression: 1. Opiate use disorder 2. Opiate Detoxification Dispo: Admit to floor This note was generated with [employer] dictation software. It may contain incorrect words, spelling, and punctuation that were not noted in review of the chart prior to signing. Lab Data Labs: Laboratory Results - last 24 hr 12/28/23 12/28/23 09:00 09:20 WBC 6.4 RBC 5.53 Hgb 15.2 Hct 46.3 MCV 83.7 MCH 27.5 MCHC 32.8 RDW Std Deviation 39.0 RDW Coeff of Mike 12.8 Plt Count 221 MPV 11.4 Immature Gran % (Auto) 0.200 Neut % (Auto) 69.8 Lymph % (Auto) 21.4 Wallace % (Auto) 7.5 Eos % (Auto) 0.5 Baso % (Auto) 0.6 Absolute Neuts (auto) 4.5 Absolute Lymphs (auto) 1.37 Nucleated RBC % 0 Sodium 137 Potassium 3.8 Chloride 105 Carbon Dioxide 27.0 Anion Gap 5 BUN 14 Creatinine 0.89 Estim Creat Clear Calc 109.36 Est GFR (MDRD) Af Amer 120 Est GFR (MDRD) Non-Af 99 BUN/Creatinine Ratio 15.8 Glucose 113 H Calcium 9.6 Total Bilirubin 0.50 AST 18 ALT 34 Alkaline Phosphatase 63 Total Protein 7.5 Albumin 4.4 Globulin 3.1 Albumin/Globulin Ratio 1.4 Urine Opiates Screen POSITIVE H Urine Methadone Screen NEGATIVE Ur Barbiturates Screen NEGATIVE Ur Phencyclidine Scrn NEGATIVE Ur Amphetamines Screen NEGATIVE MDMA (Ecstasy) Screen NEGATIVE U Benzodiazepines Scrn NEGATIVE Urine Cocaine Screen NEGATIVE U Cannabinoids Screen NEGATIVE Ur Drug Screen Comment Ethyl Alcohol < 3.0 Discharge Plan Dx/Rx/DC Orders Clinical Impression: Admitted to substance misuse detoxification center Disposition Disposition: Acute Care Hospital [facility] Discharge Date/Time: 12/28/23 11:15
[2023-12-28 09:14] LABS: Absolute Lymphocyte Count 1.37 X10^3/uL (0.83-4.51); Absolute Neutrophil Count 4.5 X10^3/uL (2.0-7.7); Basophil# 0.04 X10^3/uL; Basophil% 0.6 % (0-1); Eosinophil# 0.03 X10^3/uL; Eosinophils% 0.5 % (0-5); Hematocrit 46.3 % (40-54); Hemoglobin 15.2 g/dL (13.0-16.5); Lymphocyte # 1.37 X10^3/ul (0.83-4.51); Lymphocyte % 21.4 % (19-41); Mean Corp Hgb Conc 32.8 g/dL (32-36); Mean Corpuscular Hgb 27.5 pg (27.0-32.0); Mean Corpuscular Volume 83.7 fL (80-94); Mean Platelet Vol. 11.4 fl (6.2-12.0); Monocyte# 0.48 X10^3/uL; Monocyte% 7.5 % (0-10); NRBC Flagged by Analyzer 0 % (0-5); Neutrophil # 4.46 X10^3/uL (2.7-7.7); Neutrophil % 69.8 % (47-70); Platelet Count 221 K/mm3 (150-450); RBC Distribution Width CV 12.8 % (11.6-14.6); Red Blood Count 5.53 M/mm3 (4.6-6.2); White Blood Count 6.4 K/mm3 (4.4-11.0)
[2023-12-28 09:32] LABS: ALB/GLOB Ratio 1.4 RATIO (0.9-2.4); AST(SGOT) 18 U/L (15-37); Alanine Aminotransfer ALT/SGPT 34 U/L (16-61); Albumin, Serum 4.4 g/dL (3.2-5.0); Alkaline Phosphatase 63 U/L (45-117); Anion Gap 5 (5-15); BUN 14 mg/dL (7-18); BUN/Creat Ratio 15.8 RATIO (10-20); Calcium,Total 9.6 mg/dL (8.5-10.1); Chloride 105 mmol/L (98-107); Creatinine, Serum 0.89 mg/dL (0.70-1.30); EST Glomerular Filtration Rate 99 mL/min (>60); Est Glom Filt Rate - Afr Amer 120 mL/min (>60); Estimated Creatinine Clearance 109.36 ml/min; Globulin 3.1 g/dL (2.2-4.2); Glucose 113 mg/dL (74-106); Potassium 3.8 mmol/L (3.5-5.1); Protein, Total 7.5 g/dL (6.4-8.2); Sodium Level 137 mmol/L (136-145)
[2023-12-28 09:54] LABS: Alcohol, Blood (Medical)-Serum < 3.0 mg/dL
[2023-12-28 10:21] LABS: Amphetamine Urine VISTA NEGATIVE (<1000 ng/mL); Barbiturate Urine VISTA NEGATIVE (< 200 ng/mL); Benzodiazepine Urine VISTA NEGATIVE (< 200 ng/mL); Cocaine Urine VISTA NEGATIVE (< 300 ng/mL); Ecstacy Urine VISTA NEGATIVE (< 500 ng/mL); Methadone Urine VISTA NEGATIVE (< 300 ng/mL); PCP Urine VISTA NEGATIVE (< 25 ng/mL); THC Urine VISTA NEGATIVE (< 50 ng/mL); Vista UDS pH Range 6
--- NOTE | 2023-12-28 10:46 | NURSING ---
DR BONI HARRISON
--- NOTE | 2023-12-28 10:50 | PCM.HP.STD ---
[facility] - General General Date of Admission: 12/28/23 Date of Service: 12/28/23 Chief Complaint: opioid withdrawal symptoms since morning today HPI Narrative TYRONE CHAUDHARY, is a 43 M with history of chronic opioid use dependence on Percocet, 5/325 mg 12 to 14 tablets daily for last several months. Patient last use was in the morning today. He came to the ER to get help for withdrawal symptoms. He had a left knee surgery after which he was given prescription of Percocet. Gradually got dependent and started buying on the street. Patient is stated whenever he tries to quit he feels anxiety and was started on Suboxone but also Suboxone not helping his withdrawal symptoms. Patient is having severe anxiety restlessness, could not sleep and tremors. Denies IV use of opioids. Denies any other substance use including crack cocaine, methamphetamine, ecstasy, bath salt and alcohol. Patient denies a smoking cigarette But chews tobacco. He has history of hypertension otherwise does not have other medical disease Other chronic disease includes essential tremor, generalized anxiety disorder, listed as history of pulmonary embolism and non-STEMI. [facility] Medical History Acute pericarditis (09/27/20) Anxiety Back pain Back problem Cervicalgia Chewing tobacco use Dermatitis Elevated BP without diagnosis of hypertension Essential tremor Generalized anxiety disorder History of echocardiogram History of non-ST elevation myocardial infarction (NSTEMI) (09/27/20) History of pulmonary embolus (PE) (10/21/13) Hypertension Kidney stones Nocturia Right groin pain Substance abuse Urinary frequency Vertigo Home Medications buprenorphine 8 mg-naloxone 2 mg sublingual tablet 1 tab sublingual DAILY 02/10/23 [History Last Taken 12/23/23] lisinopril 2.5 mg tablet 2.5 mg PO DAILY #90 tabs 11/12/23 [Rx Last Taken Unknown] escitalopram oxalate 5 mg tablet (Lexapro) 5 mg PO DAILY #30 tabs 11/26/23 [Rx Last Taken 12/27/23] Allergy/AdvReac Type Severity Reaction Status Date / Time No Known Allergies Allergy Verified 12/28/23 08:40 Family History Aunt Cancer CVA (cerebral vascular accident) Uncle Cancer Father Myocardial infarction Heart disease Colon cancer Mother Kidney disease Skin cancer Surgical History History of knee surgery History of left heart catheterization (09/27/20) Social History Smoking Status: Never smoker Smokeless tobacco user: chewing tobacco alcohol intake: never substance use type: does not use what type of physical activity do you participate in: none ROS ROS Narrative Constitutional: Reports fatigue and weakness. No fever. HEENT: Reports systems reviewed and no addt'l complaints, except as documented Respiratory/Chest: No acute shortness of breath or respiratory distress or wheezing. CVS: No chest pain shortness of breath or palpitation. Gastrointestinal: Denies coffee ground emesis, hematemesis or vomiting Genitourinary: Denies burning urination or new urinary tract symptoms Musculoskeletal: Denies acute joint pain or limited range of motion. No acute injury Neurologic: Denies seizure-like symptoms. skin: No ulcer. No rash Endocrinology: Reports systems reviewed and no addt'l complaints, except as documented Hematologic/Lymphatic: Reports systems reviewed and no addt'l complaints, except as documented Psychiatric disease: Anxiety disorder. Chronic substance use as described in HPI Rest 14 ROS are negative except as mentioned in HPI Vital Signs Vital Signs Vital Signs: 12/28/23 08:38 12/28/23 09:38 12/28/23 10:00 Temperature 97.5 F L Temperature Source Oral Pulse Rate 70 76 74 Respiratory Rate 16 16 16 Blood Pressure 160/103 H 150/98 H 150/90 H Blood Pressure Mean 122 115 110 Pulse Ox 100 99 99 Oxygen Delivery Method Room Air Room Air Room Air Weight Weight: 170 lb Body Mass Index (BMI) 24.3 Physical Exam Narrative General: Alert, Oriented x3, Cooperative HEENT: Atraumatic, PERRLA, EOMI, Normocephalic Oral: Oral mucosa dry. No Gingival or Mucosal Lesions/ Ulcerations Neck: Supple, No JVD, Negative Carotid Bruits Chest wall/Lungs: Air entry diminished in bilateral lung bases. No crepitation/rhonchi Cardiovascular: Regular rate, Regular Rhythm, Normal S1, Normal S2, No M/G/R Abdomen: Bowel Sounds Present, Soft, Non Tender, Non-Distended : No dysuria. No renal angle tenderness. No suprapubic tenderness. Extremities: No edema, Capillary Refill Less than 3 Seconds Skin: No rashes, No breakdown Musculoskeletal: Chronic postsurgical scar present on left knee. ROM full. No Tenderness to Palpation of Joints or Extremities Neurological: Cranial nerves II-XII grossly intact, DTR 2+/4. No acute focal neurological deficit. Psych/Mental Status: Flat affect, anxiety and restlessness. Hyperalert, insomnia Results Lab / Micro Data 12/28/23 09:00 12/28/23 09:00 Labs: Laboratory Results - last 24 hr 12/28/23 09:00: WBC 6.4, RBC 5.53, Hgb 15.2, Hct 46.3, MCV 83.7, MCH 27.5, MCHC 32.8, RDW Std Deviation 39.0, RDW Coeff of Mike 12.8, Plt Count 221, MPV 11.4, Immature Gran % (Auto) 0.200, Neut % (Auto) 69.8, Lymph % (Auto) 21.4, [place] % (Auto) 7.5, Eos % (Auto) 0.5, Baso % (Auto) 0.6, Absolute Neuts (auto) 4.5, Absolute Lymphs (auto) 1.37, Nucleated RBC % 0, Sodium 137, Potassium 3.8, Chloride 105, Carbon Dioxide 27.0, Anion Gap 5, BUN 14, Creatinine 0.89, Estim Creat Clear Calc 109.36, Est GFR (MDRD) Af Amer 120, Est GFR (MDRD) Non-Af 99, BUN/Creatinine Ratio 15.8, Glucose 113 H, Calcium 9.6, Total Bilirubin 0.50, AST 18, ALT 34, Alkaline Phosphatase 63, Total Protein 7.5, Albumin 4.4, Globulin 3.1, Albumin/Globulin Ratio 1.4, Ethyl Alcohol < 3.0 12/28/23 09:20: Urine Opiates Screen POSITIVE H, Urine Methadone Screen NEGATIVE, Ur Barbiturates Screen NEGATIVE, Ur Phencyclidine Scrn NEGATIVE, Ur Amphetamines Screen NEGATIVE, MDMA (Ecstasy) Screen NEGATIVE, U Benzodiazepines Scrn NEGATIVE, Urine Cocaine Screen NEGATIVE, U Cannabinoids Screen NEGATIVE, Ur Drug Screen Comment Assessment & Plan Assessment/Plan (1) Acute hyperactive opioid withdrawal delirium: PLAN: Plan This is 43-year-old gentleman being admitted for acute opioid withdrawal syndrome. 1. Acute opioid withdrawal syndrome with history of chronic opioid use disorder, dependence and relapse: Patient is being admitted on MedSurg floor. The patient is started on buprenorphine along with other adjunctive medications as needed for medical stabilization as per order set of opioid withdrawal syndrome.Patient also on trazodone, hydroxyzine, gabapentin as needed ordered. CINA score monitoring Advised quitting opioid use. mobility architect manager consult. Does not have IV needles scar on forearms. 2. Nicotine dependence/smokeless tobacco/chewing tobacco: On nicotine patch. 3. Hypertension: Blood pressure is mildly elevated 148/89, 150/98 and 160/103 in ED. Gradually improving most recent 136/102. 4. SHAMAR/chronic insomnia, anxiety with panic attack and mild depression: Patient is on medications here. Started on BuSpar. Patient on escitalopram which is held because of drug drug interaction DVT prophylaxis: Low risk. Early ambulation encouraged. Living will/advanced directive/end of life care: Patient does not have living will or advanced directive. After discussion of benefits/risks procedures involved with full code, DNR CC arrest and DNR CC, the patient opted for full code. Patient does want artificial life support including intubation, tube feed, ventilator and/chest compression, central venous catheter, vasopressor and DC shock if needed Total time spent in [id number] encounter in discussion of advanced directive 17 minutes. Laboratory Results 12/28/23 09:00: WBC 6.4, RBC 5.53, Hgb 15.2, Hct 46.3, MCV 83.7, MCH 27.5, MCHC 32.8, RDW Std Deviation 39.0, RDW Coeff of Mike 12.8, Plt Count 221, MPV 11.4, Immature Gran % (Auto) 0.200, Neut % (Auto) 69.8, Lymph % (Auto) 21.4, [place] % (Auto) 7.5, Eos % (Auto) 0.5, Baso % (Auto) 0.6, Absolute Neuts (auto) 4.5, Absolute Lymphs (auto) 1.37, Nucleated RBC % 0, Sodium 137, Potassium 3.8, Chloride 105, Carbon Dioxide 27.0, Anion Gap 5, BUN 14, Creatinine 0.89, Estim Creat Clear Calc 109.36, Est GFR (MDRD) Af Amer 120, Est GFR (MDRD) Non-Af 99, BUN/Creatinine Ratio 15.8, Glucose 113 H, Calcium 9.6, Total Bilirubin 0.50, AST 18, ALT 34, Alkaline Phosphatase 63, Total Protein 7.5, Albumin 4.4, Globulin 3.1, Albumin/Globulin Ratio 1.4, Ethyl Alcohol < 3.0 12/28/23 09:20: Urine Opiates Screen POSITIVE H, Urine Methadone Screen NEGATIVE, Ur Barbiturates Screen NEGATIVE, Ur Phencyclidine Scrn NEGATIVE, Ur Amphetamines Screen NEGATIVE, MDMA (Ecstasy) Screen NEGATIVE, U Benzodiazepines Scrn NEGATIVE, Urine Cocaine Screen NEGATIVE, U Cannabinoids Screen NEGATIVE, Ur Drug Screen Comment 12/28/23 14:08: PT 13.9, INR 1.1 Charges/Coding Visit Charges Inpatient E&M: 61291 Init Hosp L3 Procedures Hospitalists Procedures: 49227 Advncd Care Plan 30 Min
--- NOTE | 2023-12-28 10:50 | NURSING ---
MED SURG [facility] OPIATE DETOX
[2023-12-28] MEDS: Phenobarbital 32.4 MG Tablet 97.2 MG PO (11:55)
[2023-12-28] MEDS: Gabapentin 300 MG Capsule PO ×2 (11:55→23:30)
[2023-12-28] MEDS: Thiamine Hydrochloride 100 MG Tablet PO (12:10)
[2023-12-28] MEDS: Folic Acid 1 MG Tablet PO (12:10)
[2023-12-28] MEDS: Famotidine 20 MG Tablet PO ×2 (12:10→21:26)
[2023-12-28] MEDS: Lisinopril 2.5 MG Tablet PO (12:11)
[2023-12-28 14:31] LABS: International Normalized Ratio 1.1; Prothrombin Time (Protime)PT. 13.9 SECONDS (11.7-14.9)
--- NOTE | 2023-12-28 16:22 | CHAPLAIN ---
Type of Pastoral Visit _x__ Initial Visit ___ Follow-up Visit ___ On-call Visit ___ General Patient Visit ___ Spiritual Assessment ___ Family Conference ___ Bereavement ___ Rapid Response ___ Code Blue ___ Other (describe below) Pastoral Care Referral From _x__ Patient ___ Family _x__ Nurse ___ Physician ___ Proof Reader ___ Lockstitch Lining Setter ___ Other (describe below) Sacrament/Intervention _x__ Active listening ___ Anointing ___ Sabianism ___ Bereavement ___ Communion _x__ Ngozi exploration ___ _x__ Life review _x__ Prayer ___ Reconciliation ___ Sacrament of Sick _x__ Supportive presence ___ Wedding ___ Other (describe below) Pastoral Comments RN stopped this webbing supervisor to ask for a visit to this patient that was just admitted to the floor; pt was asking for a Bible and the RN thought a visit would also be helpful; got a Bible and went into pt room to give it to him with an introduction of self and role of webbing supervisor; pt is very welcoming of support and begins to cry; pt explains his spiritual status and his great disappointment to God; pt speaks of his family and how difficult it is for him to not be there for my daughters nessa; pt explains what started his addiction to pills and how he has shame and desire to do better; pt is tearful as he talks about his feelings, his own family background, and his desire to serve God and get back on track with the Lord; lots of time given to listen, affirm his hopes, assure him of a healing and a future that can be possible, and spending time sitting with patient as he often became overwhelmed with emotion; prayer is welcomed; pt states I really needed that; pt would like a folllow up visit before he is released
[2023-12-28] MEDS: hydrOXYzine PAM 25 MG Capsule 50 MG PO ×2 (17:55→22:43)
[2023-12-28] MEDS: Acetaminophen 500 MG Tablet PO (21:33)
[2023-12-28] MEDS: traZODone 100 MG Tablet PO (21:33)
--- NOTE | 2023-12-28 23:42 | NURSING ---
PT COWS SCORE REACHED 8.Discussed medication with pt pt declined states he doesn't want to take it at this time. informed him it is available to help him through the withdrawal if he changes his mind.
[2023-12-29] MEDS: Buprenorphine HCl 2 MG TAB.SUBL 4 MG SL (00:50)
--- NOTE | 2023-12-29 00:50 | NURSING ---
Pt remains very restless, states can not seem to relax. Discussed the buprenorphine with pt again. Pt agreed to try it even though he had previously declined even with a cows score of 8.
[2023-12-29 01:00] VITALS: BP 123/89; PULSE 73; RESP 16; TEMP 36.3; O2SAT 95
[2023-12-29 06:12] VITALS: BP 112/79; PULSE 58; RESP 16; TEMP 36.8; O2SAT 97
--- NOTE | 2023-12-29 07:46 | PCM.PN.HOSP ---
Reason for Visit Reason for Visit: Diagnoses Opioid use, unspecified with withdrawal (12/28/23) Objective Data Objective Data Vital Signs: Vital Signs Temp Pulse Resp BP Pulse Ox O2 Del Method 98.2 F 58 L 16 112/79 97 Room Air 12/29/23 06:12 12/29/23 06:12 12/29/23 06:12 12/29/23 06:12 12/29/23 06:12 12/29/23 06:12 Oxygen Delivery Method Room Air Weight: 157 lb 3.033 oz Body Mass Index (BMI) 21.9 Intake & Output: Intake and Output for Last 24 Hours 12/27/23 12/28/23 12/29/23 23:59 23:59 23:59 Intake Total 1090 / 1390 550 / 550 Balance 1090 / 1390 550 / 550 Medical Nutrition Assessment Dietitian: Malnutrition Criteria Met Start: 12/28/23 14:44 Freq: Status: Active Protocol: Document 12/28/23 14:44 LO (Rec: 12/28/23 14:44 LO Desktop) Nutrition Malnutrition Evidence of Malnutrition Exists Yes Malnutrition (severe): Chronic Evidenced By Suboptimal Energy Intake ( Severe),Weight Loss (Severe) Clinical Problem Chronic Disease or Condition Related Malnutrition Etiology severe related to drug abuse Signs/Symptoms as evidenced by pt eating <75% of estimated nutrition needs for 3 months and 16.1lbs (9.2% ) weight loss in ~3 months Status Active Problem Recommendation Dietitian Recommendations/Changes Continue Regular diet with snacks 3x daily to optimize oral intakes. Will reassess need for ONS at follow-up based on PO intakes and weights. Lab / Micro Data 12/28/23 09:00 12/28/23 09:00 Labs: Laboratory Results - last 24 hr 12/28/23 09:00: WBC 6.4, RBC 5.53, Hgb 15.2, Hct 46.3, MCV 83.7, MCH 27.5, MCHC 32.8, RDW Std Deviation 39.0, RDW Coeff of Mike 12.8, Plt Count 221, MPV 11.4, Immature Gran % (Auto) 0.200, Neut % (Auto) 69.8, Lymph % (Auto) 21.4, [place] % (Auto) 7.5, Eos % (Auto) 0.5, Baso % (Auto) 0.6, Absolute Neuts (auto) 4.5, Absolute Lymphs (auto) 1.37, Nucleated RBC % 0, Sodium 137, Potassium 3.8, Chloride 105, Carbon Dioxide 27.0, Anion Gap 5, BUN 14, Creatinine 0.89, Estim Creat Clear Calc 109.36, Est GFR (MDRD) Af Amer 120, Est GFR (MDRD) Non-Af 99, BUN/Creatinine Ratio 15.8, Glucose 113 H, Calcium 9.6, Total Bilirubin 0.50, AST 18, ALT 34, Alkaline Phosphatase 63, Total Protein 7.5, Albumin 4.4, Globulin 3.1, Albumin/Globulin Ratio 1.4, Ethyl Alcohol < 3.0 12/28/23 09:20: Urine Opiates Screen POSITIVE H, Urine Methadone Screen NEGATIVE, Ur Barbiturates Screen NEGATIVE, Ur Phencyclidine Scrn NEGATIVE, Ur Amphetamines Screen NEGATIVE, MDMA (Ecstasy) Screen NEGATIVE, U Benzodiazepines Scrn NEGATIVE, Urine Cocaine Screen NEGATIVE, U Cannabinoids Screen NEGATIVE, Ur Drug Screen Comment 12/28/23 14:08: PT 13.9, INR 1.1 Physical Exam Narrative Seen and examined the morning. Patient is refusing for buprenorphine and nicotine patch. He feels buprenorphine gives him weird feeling and making him high. Tried to convince him this is the treatment of choice. Overall withdrawal symptoms are better. Denies hallucinations or nightmares Physical exam General: Alert, Oriented x3, Cooperative HEENT: Atraumatic, PERRLA, EOMI, Normocephalic Oral: Oral mucosa dry. No Gingival or Mucosal Lesions/ Ulcerations Neck: Supple, No JVD, Negative Carotid Bruits Chest wall/Lungs: Air entry diminished in bilateral lung bases. No crepitation/rhonchi Cardiovascular: Regular rate, Regular Rhythm, Normal S1, Normal S2, No M/G/R Abdomen: Bowel Sounds Present, Soft, Non Tender, Non-Distended : No dysuria. No renal angle tenderness. No suprapubic tenderness. Extremities: No edema, Capillary Refill Less than 3 Seconds Skin: No rashes, No breakdown Musculoskeletal: Chronic postsurgical scar present on left knee. ROM full. No Tenderness to Palpation of Joints or Extremities Neurological: Cranial nerves II-XII grossly intact, DTR 2+/4. No acute focal neurological deficit. Psych/Mental Status: Flat affect, anxiety and restlessness. Assessment & Plan Assessment/Plan (1) Acute hyperactive opioid withdrawal delirium: PLAN: Plan This is 43-year-old gentleman being admitted for acute opioid withdrawal syndrome. 1. Acute opioid withdrawal syndrome with history of chronic opioid use disorder, dependence and relapse: Patient is being admitted on MedSur floor. The patient is started on buprenorphine along with other adjunctive medications as needed for medical stabilization as per order set of opioid withdrawal syndrome.Patient also on trazodone, hydroxyzine, gabapentin as needed ordered. CINA score monitoring Advised quitting opioid use. manager ob consult. Does not have IV needles scar on forearms. 12/28: Continue above treatment. 118 consult. 2. Nicotine dependence/smokeless tobacco/chewing tobacco: On nicotine patch. 3. Hypertension: Blood pressure is mildly elevated 148/89, 150/98 and 160/103 in ED. Gradually improving most recent 136/102. 12/28 most recent 121/83. Blood pressure normal range. 4. SHAMAR/chronic insomnia, anxiety with panic attack and mild depression: Patient is on medications here. Started on BuSpar. Patient on escitalopram which is held because of drug drug interaction DVT prophylaxis: Low risk. Early ambulation encouraged. Living will/advanced directive/end of life care: Patient does not have living will or advanced directive. After discussion of benefits/risks procedures involved with full code, DNR CC arrest and DNR CC, the patient opted for full code. Patient does want artificial life support including intubation, tube feed, ventilator and/chest compression, central venous catheter, vasopressor and DC shock if needed Laboratory Results 12/28/23 09:00: WBC 6.4, RBC 5.53, Hgb 15.2, Hct 46.3, MCV 83.7, MCH 27.5, MCHC 32.8, RDW Std Deviation 39.0, RDW Coeff of Mike 12.8, Plt Count 221, MPV 11.4, Immature Gran % (Auto) 0.200, Neut % (Auto) 69.8, Lymph % (Auto) 21.4, Lucas % (Auto) 7.5, Eos % (Auto) 0.5, Baso % (Auto) 0.6, Absolute Neuts (auto) 4.5, Absolute Lymphs (auto) 1.37, Nucleated RBC % 0, Sodium 137, Potassium 3.8, Chloride 105, Carbon Dioxide 27.0, Anion Gap 5, BUN 14, Creatinine 0.89, Estim Creat Clear Calc 109.36, Est GFR (MDRD) Af Amer 120, Est GFR (MDRD) Non-Af 99, BUN/Creatinine Ratio 15.8, Glucose 113 H, Calcium 9.6, Total Bilirubin 0.50, AST 18, ALT 34, Alkaline Phosphatase 63, Total Protein 7.5, Albumin 4.4, Globulin 3.1, Albumin/Globulin Ratio 1.4, Ethyl Alcohol < 3.0 12/28/23 09:20: Urine Opiates Screen POSITIVE H, Urine Methadone Screen NEGATIVE, Ur Barbiturates Screen NEGATIVE, Ur Phencyclidine Scrn NEGATIVE, Ur Amphetamines Screen NEGATIVE, MDMA (Ecstasy) Screen NEGATIVE, U Benzodiazepines Scrn NEGATIVE, Urine Cocaine Screen NEGATIVE, U Cannabinoids Screen NEGATIVE, Ur Drug Screen Comment 12/28/23 14:08: PT 13.9, INR 1.1 Charges/Coding Visit Charges Inpatient E&M: 26896 Subs Hosp L2
[2023-12-29 09:15] VITALS: BP 121/83; PULSE 70; RESP 16; TEMP 36.6; O2SAT 97
[2023-12-29] MEDS: Famotidine 20 MG Tablet PO ×2 (10:33→22:11)
[2023-12-29] MEDS: Thiamine Hydrochloride 100 MG Tablet PO (10:33)
[2023-12-29] MEDS: Folic Acid 1 MG Tablet PO (10:33)
[2023-12-29] MEDS: Lisinopril 2.5 MG Tablet PO (10:33)
--- NOTE | 2023-12-29 12:32 | ADDICTION ---
clinician met with client to discuss his hx of opiate use. client reported a knee injury initiated tx and prescription of opiate medications. client reported a need to be sober. client has previously attend IOP and counseling services at [facility] (unsure of year). client reported it was ok but not really helpful. client appears contemplative about sobriety and change. He presented as cooperative and willing to engage in discussion. client would like to resume counseling services at [facility]. clinician assisted clienti in signing [facility] for this agency. clinician attempted to contact intake for DA session; staff with other clients. clinician will follow up for initial intake appointment.
[2023-12-29] MEDS: hydrOXYzine PAM 25 MG Capsule 50 MG PO (13:19)
[2023-12-29 16:00] VITALS: BP 133/102; PULSE 76; RESP 16; TEMP 36.7; O2SAT 96
[2023-12-29] MEDS: Buprenorphine HCl 2 MG TAB.SUBL SL (17:00)
[2023-12-29 22:00] VITALS: BP 126/92; PULSE 81; RESP 16; TEMP 36.4; O2SAT 96
[2023-12-29] MEDS: Gabapentin 300 MG Capsule PO (22:11)
[2023-12-29] MEDS: traZODone 100 MG Tablet PO (22:21)
[2023-12-30] MEDS: Buprenorphine HCl 2 MG TAB.SUBL SL ×2 (00:19→08:42)
[2023-12-30 03:57] VITALS: BP 102/81; PULSE 67; RESP 16; TEMP 36.2; O2SAT 96
[2023-12-30 08:28] VITALS: BP 114/88; PULSE 77; RESP 16; TEMP 36.5; O2SAT 97
[2023-12-30] MEDS: Folic Acid 1 MG Tablet PO (08:42)
[2023-12-30] MEDS: Famotidine 20 MG Tablet PO ×2 (08:42→21:54)
[2023-12-30] MEDS: Lisinopril 2.5 MG Tablet PO (08:42)
[2023-12-30] MEDS: Thiamine Hydrochloride 100 MG Tablet PO (08:42)
--- NOTE | 2023-12-30 13:47 | PN.HOSP_ITS ---
Reason for Visit Reason for Visit: Diagnoses Opioid use, unspecified with withdrawal (12/28/23) Subjective Subjective No acute events overnight. Patient seen at bedside this morning. Patient was mildly anxious appearing but otherwise conversing normally and in no acute distress. States he has felt fairly calm here with the medications we have been giving him. Denies any significant opiate withdrawal symptoms. His main concern was how to best control his anxiety/depression going forward. Spoke with patient's over the phone later this afternoon. Apparently there was miscommunication on patient's recent opiate use history. Was reported on admission the patient was taking Percocet 12 to 14 tablets daily for the last several months, and he was started on the opiate withdrawal order set with a subutex taper for this. Per patient and , he apparently had been following recently with 180 and was only on buprenorphine being prescribed to him by them. Apparently he was still having some withdrawal symptoms on this buprenorphine and he was occasionally taking Percocet at home to try to offset this. Since arrival here, patient's vitals have been very stable. Patient seems generally anxious at baseline and has been asking for several as needed medications to help with the symptoms. States that the hydroxyzine did seem helpful for him. I did mention to them that it would be quite unlikely he would withdrawal from low doses of Subutex, which is why we utilized the taper here. However, per request I discontinued the Subutex this afternoon and we will see how patient does from a withdrawal standpoint with just the as needed medications per the order set. Objective Data Objective Data Vital Signs: Vital Signs Temp Pulse Resp BP Pulse Ox O2 Del Method 97.7 F L 77 16 114/88 H 97 Room Air 12/30/23 08:28 12/30/23 08:28 12/30/23 08:28 12/30/23 08:28 12/30/23 08:28 12/30/23 08:55 Oxygen Delivery Method Room Air Weight: 71.3 kg Body Mass Index (BMI) 21.9 Intake & Output: Intake and Output for Last 24 Hours 12/28/23 12/29/23 12/30/23 23:59 23:59 23:59 Intake Total 1090 / 1390 550 / 790 360 / 360 Balance 1090 / 1390 550 / 790 360 / 360 Medical Nutrition Assessment Dietitian: Malnutrition Criteria Met Start: 12/28/23 14:44 Freq: Status: Active Protocol: Document 12/28/23 14:44 LO (Rec: 12/28/23 14:44 LO Desktop) Nutrition Malnutrition Evidence of Malnutrition Exists Yes Malnutrition (severe): Chronic Evidenced By Suboptimal Energy Intake ( Severe),Weight Loss (Severe) Clinical Problem Chronic Disease or Condition Related Malnutrition Etiology severe related to drug abuse Signs/Symptoms as evidenced by pt eating <75% of estimated nutrition needs for 3 months and 16.1lbs (9.2% ) weight loss in ~3 months Status Active Problem Recommendation Dietitian Recommendations/Changes Continue Regular diet with snacks 3x daily to optimize oral intakes. Will reassess need for ONS at follow-up based on PO intakes and weights. Lab / Micro Data 12/28/23 09:00 12/28/23 09:00 Physical Exam Const alert, oriented x3, no apparent distress, average body habitus, healthy appearing and well nourished General Appearance: cooperative, comfortable, well kempt and well developed HEENT normocephalic, head/scalp atraumatic, hearing grossly normal bilaterally, nasal mucous membranes and turbinates normal and moist oral mucous membranes Eyes PERRL, EOMs intact bilaterally and conjunctivae normal Neck full ROM Chest inspection of chest normal Resp normal respiratory effort, normal air movement, no use of accessory muscles and clear to auscultation bilaterally Cardio regular rate, regular rhythm, no murmurs and peripheral pulses 2+ throughout GI normal to inspection, nondistended, normoactive bowel sounds, soft to palpation, non-tender and non-distended Back/Spine normal ROM Extremity normal to inspection, full ROM and no pedal edema Skin no rashes or lesions noted Neuro moves all extremities and no focal motor deficits Speech: speech normal Psych mental status grossly normal Mood & Affect: anxious Assessment & Plan Assessment/Plan (1) Opiate withdrawal: PLAN: Plan Patient is a 43-year-old male who presented [facility] ED on 12/28/2023 for opiate detoxification. 1. Opiate use disorder with withdrawal ? Addiction medicine following. See subjective above for further details. Subutex discontinued on afternoon of 12/29, will continue other as needed medications per opiate withdrawal order set. If remains stable, planning for discharge home tomorrow with plan for outpatient follow up with [facility]. 2. History of anxiety/depression ? Recently started on Lexapro 5 mg daily by PCP per patient. Stated on admission that he felt like this made him more anxious and requested it be held on admission. Notably has been on venlafaxine in the past and stated this sedated him too much. Will plan to hold Lexapro on discharge and give patient prescription for hydroxyzine as needed on discharge. 3. Hypertension ? Continue home lisinopril. DVT prophylaxis: Low risk, ambulate CODE STATUS: Full code, verified Expected disposition: Home, 1 to 2 days Total clinical time spent by myself addressing the patient's medical issues, reviewing all the data, and collaborating with patient's care team: 35 minutes. Charges/Coding Visit Charges Inpatient E&M: 39474 Subs Hosp L2
[2023-12-30 14:36] VITALS: BP 116/84; PULSE 77; RESP 16; TEMP 36.7; O2SAT 98
[2023-12-30] MEDS: hydrOXYzine PAM 25 MG Capsule 50 MG PO (14:44)
--- NOTE | 2023-12-30 15:43 | CHAPLAIN ---
Type of Pastoral Visit ___ Initial Visit _x__ Follow-up Visit ___ On-call Visit ___ General Patient Visit ___ Spiritual Assessment ___ Family Conference ___ Bereavement ___ Rapid Response ___ Code Blue ___ Other (describe below) Pastoral Care Referral From _x__ Patient ___ Family ___ Nurse ___ Physician ___ Rn Medication ___ Screen Writer ___ Other (describe below) Sacrament/Intervention _x__ Active listening ___ Anointing ___ Amish ___ Bereavement ___ Communion _x__ Ngozi exploration ___ _x__ Life review _x__ Prayer ___ Reconciliation ___ Sacrament of Sick _x__ Supportive presence ___ Wedding ___ Other (describe below) Pastoral Comments patient has been reading the Bible and he showed where he is at and mentioned several questions he has in reading it; pt is very talkative, expresses thankfulness for the follow up visit; pt gives more life review and asks questions about his anxiety issues; pt is offered perspective from the spiritual side and he is very receptive of it; pt identifies self as a [employer] and desiring to be right with God and growing in his ngozi; prayer and presence given
[2023-12-30 17:53] VITALS: BP 133/94; PULSE 71; RESP 16; TEMP 36.7; O2SAT 97
[2023-12-30] MEDS: traZODone 100 MG Tablet PO (21:54)
[2023-12-30 23:53] VITALS: BP 129/88; PULSE 88; RESP 16; TEMP 36.4; O2SAT 97
[2023-12-31 05:26] VITALS: BP 121/85; PULSE 99; RESP 16; TEMP 36.5; O2SAT 99
[2023-12-31 09:31] VITALS: BP 138/92; PULSE 68; RESP 16; TEMP 36.5; O2SAT 98
[2023-12-31] MEDS: Dicyclomine 10 MG Capsule 20 MG PO ×2 (09:48→16:35)
[2023-12-31] MEDS: Ibuprofen 600 MG Tablet PO ×2 (09:50→18:01)
[2023-12-31] MEDS: hydrOXYzine PAM 25 MG Capsule 50 MG PO ×2 (09:50→22:01)
[2023-12-31] MEDS: Famotidine 20 MG Tablet PO ×2 (09:51→22:01)
[2023-12-31] MEDS: Thiamine Hydrochloride 100 MG Tablet PO (09:51)
[2023-12-31] MEDS: Lisinopril 2.5 MG Tablet PO (09:51)
[2023-12-31] MEDS: Folic Acid 1 MG Tablet PO (09:51)
--- NOTE | 2023-12-31 11:44 | PCM.PN.HOSP ---
Reason for Visit Reason for Visit: Diagnoses Opioid use, unspecified with withdrawal (12/28/23) Subjective Subjective Saw patient at bedside this morning. Patient appeared mild to moderately anxious and was tearful at times during our encounter. Stated that since stopping Subutex yesterday he has had some diarrhea and feels more anxious than yesterday. States the added anxiety is primarily with speaking and was sent. He was also hoping to possibly go home today as he misses his family, but he wants to complete detox and feel improved symptomatically prior to going home. No other acute concerns morning. Objective Data Objective Data Vital Signs: Vital Signs Temp Pulse Resp BP Pulse Ox O2 Del Method 97.7 F L 68 16 138/92 H 98 Room Air 12/31/23 09:31 12/31/23 09:31 12/31/23 09:31 12/31/23 09:31 12/31/23 09:31 12/31/23 09:31 Oxygen Delivery Method Room Air Weight: 71.3 kg Body Mass Index (BMI) 21.9 Intake & Output: Intake and Output for Last 24 Hours 12/29/23 12/30/23 12/31/23 23:59 23:59 23:59 Intake Total 550 / 790 1700 / 1700 360 / 360 Balance 550 / 790 1700 / 1700 360 / 360 Medical Nutrition Assessment Dietitian: Malnutrition Criteria Met Start: 12/28/23 14:44 Freq: Status: Active Protocol: Document 12/28/23 14:44 LO (Rec: 12/28/23 14:44 LO Desktop) Nutrition Malnutrition Evidence of Malnutrition Exists Yes Malnutrition (severe): Chronic Evidenced By Suboptimal Energy Intake ( Severe),Weight Loss (Severe) Clinical Problem Chronic Disease or Condition Related Malnutrition Etiology severe related to drug abuse Signs/Symptoms as evidenced by pt eating <75% of estimated nutrition needs for 3 months and 16.1lbs (9.2% ) weight loss in ~3 months Status Active Problem Recommendation Dietitian Recommendations/Changes Continue Regular diet with snacks 3x daily to optimize oral intakes. Will reassess need for ONS at follow-up based on PO intakes and weights. Lab / Micro Data 12/28/23 09:00 12/28/23 09:00 Physical Exam Const alert, oriented x3 and average body habitus Constitutional Narrative: Middle-age male, sitting up comfortably bed, mild to moderately anxious appearing, tearful at times during our encounter due to anxiety and stress, otherwise conversing normally. General Appearance: cooperative and comfortable HEENT normocephalic, head/scalp atraumatic, hearing grossly normal bilaterally, nasal mucous membranes and turbinates normal and moist oral mucous membranes Eyes PERRL, EOMs intact bilaterally and conjunctivae normal Neck full ROM Chest inspection of chest normal Resp normal respiratory effort, normal air movement, no use of accessory muscles and clear to auscultation bilaterally Cardio regular rate, regular rhythm, no murmurs and peripheral pulses 2+ throughout GI normal to inspection, nondistended, normoactive bowel sounds, soft to palpation, non-tender and non-distended Back/Spine normal ROM Extremity normal to inspection, full ROM and no pedal edema Skin no rashes or lesions noted Neuro moves all extremities and no focal motor deficits Speech: speech normal Psych mental status grossly normal Mood & Affect: anxious Assessment & Plan Assessment/Plan (1) Opiate withdrawal: PLAN: Plan Patient is a 43-year-old male who presented [facility] ED on 12/28/2023 for opiate detoxification. 1. Opiate use disorder with withdrawal ? Addiction medicine following. See subjective on 12/29 for further details. In short, patient was not taking Percocet prior to admission as was noted on H&P. Instead he was on Suboxone and was trying to get off of this, but he was having withdrawal symptoms when tapering off Suboxone. He came in for detox from Suboxone. Unfortunately he was on Subutex here which would not necessarily help with tapering off Suboxone, Subutex discontinued on afternoon of 12/29. Patient having mild to moderate worsening of withdrawal symptoms on 12/30. Continued other as needed medications per opiate withdrawal order set. Hopeful for discharge home tomorrow with plan for outpatient follow-up with 180. 2. History of anxiety/depression ? Recently started on Lexapro 5 mg daily by PCP per patient. Stated on admission that he felt like this made him more anxious and requested it be held on admission. Notably has been on venlafaxine in the past and stated this sedated him too much. Will plan to hold Lexapro on discharge and give patient prescription for hydroxyzine as needed on discharge. 3. Hypertension ? Continue home lisinopril. DVT prophylaxis: Low risk, ambulate CODE STATUS: Full code, verified Expected disposition: Home, 1 to 2 days Total clinical time spent by myself addressing the patient's medical issues, reviewing all the data, and collaborating with patient's care team: 25 minutes. Charges/Coding Visit Charges Inpatient E&M: 75576 Subs Hosp L1
--- NOTE | 2023-12-31 11:47 | CASEMGMT ---
Addendum entered by Joana Cabrera 12/31/23 12:08: SW spoke with [facility] equipment mechanic specialist. Patient's plan is to follow up with [facility] as an outpatient. Joana KHAN Original Note: Patient was not seen by equipment mechanic specialist 5-2 to work on d/c plan. LORENA called Treatment Navigator at [facility] to inquire if patient is okay to leave or if they need to talk with patient again. Joana KHAN
--- NOTE | 2023-12-31 16:21 | CHAPLAIN ---
Type of Pastoral Visit ___ Initial Visit _x__ Follow-up Visit ___ On-call Visit ___ General Patient Visit ___ Spiritual Assessment ___ Family Conference ___ Bereavement ___ Rapid Response ___ Code Blue ___ Other (describe below) Pastoral Care Referral From _x__ Patient ___ Family ___ Nurse ___ Physician ___ Lens Coater ___ University Manager ___ Other (describe below) Sacrament/Intervention _x__ Active listening ___ Anointing ___ Yarsanism ___ Bereavement ___ Communion _x__ Ngozi exploration ___ _x__ Life review _x__ Prayer ___ Reconciliation ___ Sacrament of Sick _x__ Supportive presence ___ Wedding ___ Other (describe below) Pastoral Comments patient has lots of emotion continuing and shares more life experiences and the pain and wounds he has emotionally; pt has further questions of God and spiritual nature; pt wants to be home with family but wants to stay until he is feeling well enough and ready to reenter the community; pt has some apprehensions but displays strong desires to get life on the right track; pt prayed for himself and his family today
[2023-12-31 16:24] VITALS: BP 130/93; PULSE 75; RESP 16; TEMP 36.5; O2SAT 98
[2023-12-31] MEDS: Loperamide 2 MG Capsule PO (16:35)
[2023-12-31] MEDS: busPIRone 5 MG Tablet 10 MG PO (16:35)
[2023-12-31] MEDS: Nicotine Polacrilex 2 MG GUM PO (16:35)
[2023-12-31] MEDS: Gabapentin 300 MG Capsule PO (18:01)
[2023-12-31 21:54] VITALS: BP 123/92; PULSE 65; RESP 18; TEMP 36.8; O2SAT 98
[2023-12-31] MEDS: traZODone 100 MG Tablet PO (22:01)
[2024-01-01] MEDS: busPIRone 5 MG Tablet 10 MG PO (02:22)
[2024-01-01] MEDS: Gabapentin 300 MG Capsule PO (02:22)
[2024-01-01 02:23] VITALS: BP 127/90; PULSE 78; RESP 18; TEMP 36.7; O2SAT 98
[2024-01-01 07:38] VITALS: BP 141/103; PULSE 67; RESP 16; TEMP 36.3; O2SAT 100
[2024-01-01] MEDS: Famotidine 20 MG Tablet PO (07:42)
[2024-01-01] MEDS: Folic Acid 1 MG Tablet PO (07:42)
[2024-01-01] MEDS: Lisinopril 2.5 MG Tablet PO (07:42)
[2024-01-01] MEDS: Thiamine Hydrochloride 100 MG Tablet PO (07:42)
[2024-01-01] MEDS: hydrOXYzine PAM 25 MG Capsule 50 MG PO (07:43)
--- NOTE | 2024-01-01 09:37 | PCM.DC ---
Discharge Instructions Diet Discharge Diet: No restrictions Activity Discharge Activity: No Restrictions Follow Up Care Test Results: Test results from this visit will be discussed in further detail at your follow-up appointment, if applicable. Discharge Plan Admission Admit Date/Time: 12/28/23 10:46 Primary Reason for Your Visit: opiate withdrawal Attending Provider: Pantera Rosen Primary Care Provider: Deborah Leonard Consulting Providers: Griffin Molina Discharge Orders/Prescriptions Prescriptions: New trazodone 50 mg tablet 50 mg PO QHS PRN (Reason: sleep) 30 Days Qty: 30 0RF hydroxyzine HCl 25 mg tablet 25 mg PO TID PRN (Reason: anxiety) 30 Days Qty: 90 0RF Continued lisinopril 2.5 mg tablet 2.5 mg PO DAILY Qty: 90 0RF Patient Comments: pt hasnt been taking, but states he needs to start Discontinued buprenorphine-naloxone 8-2 mg tablet, sublingual 1 tab sublingual DAILY escitalopram oxalate [Lexapro] 5 mg tablet 5 mg PO DAILY Qty: 30 0RF Referrals / Follow Up: Deborah Leonard MD [Primary Care Provider] - Disposition Disposition (needs filled in before D/C Order can be placed): Home, Self Care
--- NOTE | 2024-01-01 09:40 | PCM.DC.SUM ---
Providers Date of Admission: 12/28/23 Date of Discharge: 01/01/24 Primary Care Physician: Dr. Deborah Leonard MD Reason For Visit: ACUTE OPIATE USE WITHDRAWAL Diagnosis Discharge Diagnosis (1) Opiate withdrawal: Status: Acute Code(s): F11.93 - Opioid use, unspecified with withdrawal Medications at Discharge Home Medications lisinopril 2.5 mg tablet 2.5 mg PO DAILY BP #90 tabs 11/12/23 hydroxyzine HCl 25 mg tablet 25 mg PO TID PRN anxiety 30 days #90 tabs 01/01/24 trazodone 50 mg tablet 50 mg PO QHS PRN sleep 30 days #30 tabs 01/01/24 Hospital Course Operations None Procedures None Summary of Care Provided Minutes Spent on Discharge: 25 Hospital Course: Patient is a 43-year-old male who presented [facility] ED on 12/28/2023 for opiate detoxification. Hospital course as noted below. Discharged home with no therapy needs in stable condition on 12/31. 1. Opiate use disorder with withdrawal Initially thought to be taking Percocet 12-14 tablets daily on admission with plan to detox from this. However, on further clarification with patient and he was only on Suboxone and had withdrawal symptoms when trying to go off Suboxone and came in for withdrawal from Suboxone. Was initially treated with Subutex taper, discontinued on 12/29. Did have some worsening of withdrawal symptoms on 12/30 but stable by 12/31. ? Addiction medicine followed. Prescribed hydroxyzine as needed and trazodone at night as needed for patient on discharge. Patient planning to follow-up with 180 for outpatient therapy early next week. 2. History of anxiety/depression ? Recently started on Lexapro 5 mg daily by PCP per patient. Stated on admission that he felt like this made him more anxious and requested it be held on admission. Notably has been on venlafaxine in the past and stated this sedated him too much. Held Lexapro on discharge, recommended close follow-up with 180 and PCP on discharge. 3. Hypertension ? Continue home lisinopril. Total clinical time spent by myself addressing the patient's medical issues, reviewing all the data, and collaborating with patient's care team: 25 minutes. Physical Exam Const alert, oriented x3 and average body habitus Constitutional Narrative: Middle-age male, sitting up comfortably bed, much more calm appearing on day of discharge, conversing normally, in no acute distress. General Appearance: cooperative and comfortable HEENT normocephalic, head/scalp atraumatic, hearing grossly normal bilaterally, nasal mucous membranes and turbinates normal and moist oral mucous membranes Eyes PERRL, EOMs intact bilaterally and conjunctivae normal Neck full ROM Chest inspection of chest normal Resp normal respiratory effort, normal air movement, no use of accessory muscles and clear to auscultation bilaterally Cardio regular rate, regular rhythm, no murmurs and peripheral pulses 2+ throughout GI normal to inspection, nondistended, normoactive bowel sounds, soft to palpation, non-tender and non-distended Back/Spine normal ROM Extremity normal to inspection, full ROM and no pedal edema Skin no rashes or lesions noted Neuro moves all extremities and no focal motor deficits Speech: speech normal Psych mental status grossly normal Mood & Affect: anxious Medical Records Data Medical Nutrition Assessment Dietitian: Malnutrition Criteria Met Start: 12/28/23 14:44 Freq: Status: Active Protocol: Document 12/31/23 13:49 (Rec: 12/31/23 13:49 [id number]) Nutrition Malnutrition Evidence of Malnutrition Exists Yes Malnutrition (severe): Chronic Evidenced By Suboptimal Energy Intake ( Severe),Weight Loss (Severe) Clinical Problem Chronic Disease or Condition Related Malnutrition Etiology severe related to drug abuse Signs/Symptoms as evidenced by pt eating <75% of estimated nutrition needs for 3 months and 16.1lbs (9.2% ) weight loss in ~3 months Status Active Problem Recommendation Dietitian Recommendations/Changes Continue Regular diet with snacks 3x daily to optimize oral intakes. Will reassess need for ONS at follow-up based on PO intakes and weights. Weight / BMI Weight Weight: 71.3 kg Body Mass Index (BMI) 21.9 ABG / Lab / Microbiology Data 12/28/23 09:00 12/28/23 09:00 D/C Instructions Discharge Diet: No restrictions Meaningful Use Info Meaningful Use Meaningful Use Diagnoses (Choose all that apply): None applicable Ischemic Stroke Statin Dosing Therapy Reference: STATIN DOSE THERAPY REFERENCE: * Patients > 75 years receive moderate or high dose statin therapy. * Patients 75 years or YOUNGER should receive HIGH intensity statin dose unless contraindicated. You will be required to document reason for non-treatment if statin daily dose does not meet guidelines. HIGH DOSE STATIN THERAPY DAILY Atorvastatin > than or = to 40 mg Rosuvastatin > than or = to 20 mg Amlodipine + Atorvastatin > than or = to 2.5/40 mg Ezetimibe + Simvastatin 10/80 mg Simvastatin 80mg Discharge Plan Admission Admit Date/Time: 12/28/23 10:46 Primary Reason for Your Visit: opiate withdrawal Attending Provider: Pantera Rosen Primary Care Provider: Deborah Leonard Consulting Providers: Griffin Molina Discharge Orders/Prescriptions Prescriptions: New trazodone 50 mg tablet 50 mg PO QHS PRN (Reason: sleep) 30 Days Qty: 30 0RF hydroxyzine HCl 25 mg tablet 25 mg PO TID PRN (Reason: anxiety) 30 Days Qty: 90 0RF Continued lisinopril 2.5 mg tablet 2.5 mg PO DAILY Qty: 90 0RF Patient Comments: pt hasnt been taking, but states he needs to start Discontinued buprenorphine-naloxone 8-2 mg tablet, sublingual 1 tab sublingual DAILY escitalopram oxalate [Lexapro] 5 mg tablet 5 mg PO DAILY Qty: 30 0RF Referrals / Follow Up: Deborah Leonard MD [Primary Care Provider] - Disposition Disposition (needs filled in before D/C Order can be placed): Home, Self Care Charges/Coding Visit Charges Inpatient E&M: 28760 Disch Hosp
== END 2024-01-01 10:27 | disposition home or self-care (01) ==
LOC: ED 10:46 → PCU 12-29 08:40
PROVIDERS: Admitting Provider Internal Medicine; Emergency Provider Emergency Medicine; PCP Internal Medicine; Visit Provider Hospitalist
DX: F11.23 Opioid dependence with withdrawal (principal); F05 Delirium due to known physiological condition; I10 Essential (primary) hypertension; F17.220 Nicotine dependence, chewing tobacco, uncomplicated; F41.1 Generalized anxiety disorder; E43 Unspecified severe protein-calorie malnutrition; Z79.899 Other long term (current) drug therapy; F32.A Depression, unspecified; G47.00 Insomnia, unspecified; Z68.21 Body mass index [BMI] 21.0-21.9, adult
CPT/HCPCS: 36415; 80053; 80307; 80320; 85025; 85610; 97802; 97803; 99283; H0012; G0480

== ENCOUNTER 2024-05-22 09:20 | Inpatient (IN) | payer OTHER, SELFPAY ==
[2024-05-22] VITALS (7 sets, daily range): BP systolic 122–157; BP diastolic 80–104; PULSE 61–81; RESP 16–19; TEMP 36.4–36.8; O2SAT 94–99; BMI 25.2; BMI 23.2
[2024-05-22 10:56] LABS: Absolute Lymphocyte Count 1.35 X10^3/uL (0.83-4.51); Absolute Neutrophil Count 6.9 X10^3/uL (2.0-7.7); Basophil# 0.05 X10^3/uL; Basophil% 0.6 % (0-1); Eosinophil# 0.05 X10^3/uL; Eosinophils% 0.6 % (0-5); Hematocrit 47.7 % (40-54); Hemoglobin 15.6 g/dL (13.0-16.5); Lymphocyte # 1.35 X10^3/ul (0.83-4.51); Mean Corp Hgb Conc 32.7 g/dL (32-36); Mean Corpuscular Hgb 28.4 pg (27.0-32.0); Mean Corpuscular Volume 86.7 fL (80-94); Mean Platelet Vol. 12.2 fl (6.2-12.0); Monocyte# 0.59 X10^3/uL; Monocyte% 6.6 % (0-10); NRBC Flagged by Analyzer 0 % (0-5); Neutrophil # 6.92 X10^3/uL (2.7-7.7); Neutrophil % 76.8 % (47-70); Platelet Count 253 K/mm3 (150-450); RBC Distribution Width CV 12.2 % (11.6-14.6); RBC Distribution Width SD 39.1 fl (35.1-43.9)
[2024-05-22 11:16] LABS: Alcohol, Blood (Medical)-Serum < 3.0 mg/dL
[2024-05-22 11:22] LABS: ALB/GLOB Ratio 1.3 RATIO (0.9-2.4); AST(SGOT) 18 U/L (15-37); Alanine Aminotransfer ALT/SGPT 46 U/L (16-61); Albumin, Serum 4.4 g/dL (3.2-5.0); Alkaline Phosphatase 72 U/L (45-117); Anion Gap 5 (5-15); BUN 16 mg/dL (7-18); BUN/Creat Ratio 19.3 RATIO (10-20); Calcium,Total 9.4 mg/dL (8.5-10.1); Chloride 103 mmol/L (98-107); Creatinine, Serum 0.83 mg/dL (0.70-1.30); EST Glomerular Filtration Rate 107 mL/min (>60); Est Glom Filt Rate - Afr Amer 129 mL/min (>60); Estimated Creatinine Clearance 117.27 ml/min; Globulin 3.4 g/dL (2.2-4.2); Glucose 110 mg/dL (74-106); Protein, Total 7.8 g/dL (6.4-8.2); Sodium Level 137 mmol/L (136-145)
--- NOTE | 2024-05-22 11:33 | EDS_ITS ---
HPI History of Present Illness Chief Complaint: Substance Abuse Informant: patient Narrative Narrative: Patient is a 43-year-old male presenting for opioid detox. Patient has a history of opioid addiction. Most recently did inpatient detox here 12/27 through 12/31. States for the past few months he has been regularly using more more Percocet. He is using 5 mg Percocet and ingesting 8 to 10 pills a day. His last pill was at 7 AM this morning. Currently is on any withdrawal symptoms. Has been trying to slow himself down but is hindered by withdrawal symptoms. Had previously been on Suboxone but states has been off of that for about 4 to 5 months. Denies any IV drug use. Denies any other drug use. No other complaints or concerns reported at this time. Notes that he feels fatigued and anxious. [facility] Medical History History of echocardiogram Substance abuse Back pain Generalized anxiety disorder Vertigo Hypertension Cervicalgia Nocturia Essential tremor Acute pericarditis (09/27/20) History of pulmonary embolus (PE) (10/21/13) History of non-ST elevation myocardial infarction (NSTEMI) (09/27/20) Anxiety Chewing tobacco use Elevated BP without diagnosis of hypertension Right groin pain Dermatitis Urinary frequency Kidney stones Back problem Home Medications ?Medication ?Instructions ?Recorded ?Last Taken ?Type lisinopril 2.5 mg tablet 2.5 mg PO DAILY BP #90 tabs 11/12/23 Unknown Rx meloxicam 15 mg tablet 15 mg PO DAILY #30 tabs 01/04/24 Unknown Rx escitalopram oxalate 10 mg tablet 10 mg PO DAILY #30 tabs 01/17/24 Unknown Rx buspirone 7.5 mg tablet 7.5 mg PO BID #60 tabs 03/31/24 Unknown Rx Allergy/AdvReac Type Severity Reaction Status Date / Time No Known Allergies Allergy Verified 05/22/24 09:23 Family History Aunt Cancer CVA (cerebral vascular accident) Uncle Cancer Father Myocardial infarction Heart disease Colon cancer Mother Kidney disease Skin cancer Surgical History History of left heart catheterization (09/27/20) History of knee surgery Social History Smoking Status: Current every day smoker tobacco type: cigarettes and smokeless tobacco Smokeless tobacco user: chewing tobacco alcohol intake: never substance use type: does not use what type of physical activity do you participate in: none ROS ROS ED Constitutional Constitutional ED: Reports other Details: fatigue ; Denies chills or fever(s) Cardiovascular Cardiovascular: Denies chest pain Respiratory/Chest Respiratory/Chest: Denies cough Integumentary Denies rash Neurologic Neurologic: Denies weakness Psychiatric Psychiatric: Reports anxiety and other Details: Opioid abuse and dependency EXAM Physical Exam Const Vital Signs: 05/22/24 09:21 05/22/24 11:21 05/22/24 11:30 Temperature 98.2 F 98 F Temperature Source Oral Pulse Rate 73 78 77 Respiratory Rate 16 19 H 18 Blood Pressure 149/98 H 157/104 H 157/102 H Blood Pressure Mean 115 121 120 Pulse Ox 98 99 Oxygen Delivery Method Room Air Positive well nourished and well developed General Appearance ED: well developed and NAD HEENT Reports moist mucous membranes Eyes PERRL and EOMs intact bilaterally Neck supple Resp normal respiratory effort and clear to auscultation bilaterally Cardio regular rate and regular rhythm GI soft to palpation and non-tender Neuro oriented x3 Sensorium / Orientation: alert Motor Exam: Negative for general weakness Psych mental status grossly normal Mood & Affect: anxious Skin Lesions: no lesions Rashes: no rashes MDM MDM MDM Narrative Medical decision making narrative: Patient is evaluated for opioid abuse and requesting detox. Does not appear to be actively withdrawing at this time. Denies other other dependency. Is agreeable with admission. Will obtain medical screening labs and admit. Case is discussed with my physician, Dr. Ciu, and he is accepted to the general medical floor. Lab Data Attestation: I reviewed the patient's lab results. Labs: Laboratory Results - last 24 hr 05/22/24 05/22/24 10:15 11:30 WBC 9.0 RBC 5.50 Hgb 15.6 Hct 47.7 MCV 86.7 MCH 28.4 MCHC 32.7 RDW Std Deviation 39.1 RDW Coeff of Mike 12.2 Plt Count 253 MPV 12.2 H Immature Gran % (Auto) 0.400 Neut % (Auto) 76.8 H Lymph % (Auto) 15.0 L [place] % (Auto) 6.6 Eos % (Auto) 0.6 Baso % (Auto) 0.6 Absolute Neuts (auto) 6.9 Absolute Lymphs (auto) 1.35 Nucleated RBC % 0 Sodium 137 Potassium 4.0 Chloride 103 Carbon Dioxide 29.0 Anion Gap 5 BUN 16 Creatinine 0.83 Estim Creat Clear Calc 117.27 Est GFR (MDRD) Af Amer 129 Est GFR (MDRD) Non-Af 107 BUN/Creatinine Ratio 19.3 Glucose 110 H Calcium 9.4 Total Bilirubin 0.40 AST 18 ALT 46 Alkaline Phosphatase 72 Total Protein 7.8 Albumin 4.4 Globulin 3.4 Albumin/Globulin Ratio 1.3 Urine Opiates Screen POSITIVE H Urine Methadone Screen NEGATIVE Ur Barbiturates Screen NEGATIVE Ur Phencyclidine Scrn NEGATIVE Ur Amphetamines Screen NEGATIVE MDMA (Ecstasy) Screen NEGATIVE U Benzodiazepines Scrn NEGATIVE Urine Cocaine Screen NEGATIVE U Cannabinoids Screen NEGATIVE Ur Drug Screen Comment Ethyl Alcohol < 3.0 Discharge Plan Triage Chief Complaint: Substance Abuse ED Provider: Caitlin Argueta Dx/Rx/DC Orders Clinical Impression: Opiate abuse, continuous, Anxiety Prescriptions: No Action escitalopram oxalate 10 mg tablet 10 mg PO DAILY Qty: 30 1RF lisinopril 2.5 mg tablet 2.5 mg PO DAILY Qty: 90 0RF Patient Comments: pt hasnt been taking, but states he needs to start meloxicam 15 mg tablet 15 mg PO DAILY Qty: 30 0RF buspirone 7.5 mg tablet 7.5 mg PO BID Qty: 60 0RF Primary Care Provider: Deborah Leonard Referrals: Deborah Leonard MD [Primary Care Provider] - Print Language: Syriac Disposition Disposition: Acute Care Hospital [facility]
--- NOTE | 2024-05-22 11:39 | NURSING ---
DR LANG FOR DR FISHER
[2024-05-22 11:52] LABS: Amphetamine Urine VISTA NEGATIVE (<1000 ng/mL); Barbiturate Urine VISTA NEGATIVE (< 200 ng/mL); Benzodiazepine Urine VISTA NEGATIVE (< 200 ng/mL); Cocaine Urine VISTA NEGATIVE (< 300 ng/mL); Ecstacy Urine VISTA NEGATIVE (< 500 ng/mL); Methadone Urine VISTA NEGATIVE (< 300 ng/mL); PCP Urine VISTA NEGATIVE (< 25 ng/mL); THC Urine VISTA NEGATIVE (< 50 ng/mL); Vista UDS pH Range 5
--- NOTE | 2024-05-22 11:58 | NURSING ---
MED SURG [place] OPIOID DETOX
--- NOTE | 2024-05-22 12:17 | HP.PCM.HOS_ITS ---
HPI - General General Date of Admission: 05/22/24 HPI Narrative TYRONE CHAUDHARY, is a 43 M who presents to the hospital requesting detox from opiates. He started using opiates after he had significant knee pain on the left after surgery. He has been clean at times on Suboxone but he tried to wean himself off and would start taking Percocets again to try to take the edge off and he became addicted again. Last use today was around 7 AM and he does not describe any significant symptoms at the moment but he says that if he were home he would be taking another opiate in an hour or 2. [facility] Medical History History of echocardiogram Substance abuse Back pain Generalized anxiety disorder Vertigo Hypertension Cervicalgia Nocturia Essential tremor Acute pericarditis (09/27/20) History of pulmonary embolus (PE) (10/21/13) History of non-ST elevation myocardial infarction (NSTEMI) (09/27/20) Anxiety Chewing tobacco use Elevated BP without diagnosis of hypertension Right groin pain Dermatitis Urinary frequency Kidney stones Back problem Home Medications ?Medication ?Instructions ?Recorded ?Last Taken ?Type lisinopril 2.5 mg tablet 2.5 mg PO DAILY BP #90 tabs 11/12/23 Unknown Rx meloxicam 15 mg tablet 15 mg PO DAILY #30 tabs 01/04/24 Unknown Rx escitalopram oxalate 10 mg tablet 10 mg PO DAILY #30 tabs 01/17/24 Unknown Rx buspirone 7.5 mg tablet 7.5 mg PO BID #60 tabs 03/31/24 Unknown Rx Allergy/AdvReac Type Severity Reaction Status Date / Time No Known Allergies Allergy Verified 05/22/24 09:23 Family History Aunt Cancer CVA (cerebral vascular accident) Uncle Cancer Father Myocardial infarction Heart disease Colon cancer Mother Kidney disease Skin cancer Surgical History History of left heart catheterization (09/27/20) History of knee surgery Social History Smoking Status: Current every day smoker tobacco type: cigarettes and smokeless tobacco Smokeless tobacco user: chewing tobacco alcohol intake: never substance use type: does not use what type of physical activity do you participate in: none ROS Constitutional Constitutional: Denies chills, fatigue, fever(s) or malaise Eyes Eyes: Denies blurry vision ENT HEENT: Denies headache(s) or nasal discharge Cardiovascular Cardiovascular: Denies chest pain, dyspnea on exertion or syncope Respiratory/Chest Respiratory/Chest: Denies cough, shortness of breath at rest or shortness of breath with exertion Gastrointestinal Gastrointestinal: Denies constipation, diarrhea, nausea or vomiting Genitourinary Genitourinary: Denies dysuria Neurologic Neurologic: Denies focal weakness, numbness or tremor(s) Psychiatric Psychiatric: Denies anxiety or depression Vital Signs Vital Signs Vital Signs: 05/22/24 09:21 05/22/24 11:21 05/22/24 11:30 Temperature 98.2 F 98 F Temperature Source Oral Pulse Rate 73 78 77 Respiratory Rate 16 19 H 18 Blood Pressure 149/98 H 157/104 H 157/102 H Blood Pressure Mean 115 121 120 Pulse Ox 98 99 Oxygen Delivery Method Room Air Weight Weight: 175 lb 9.6 oz Body Mass Index (BMI) 25.2 Physical Exam Narrative General: Alert, Oriented x3, Cooperative, No apparent distress HEENT: Atraumatic, PERRLA, EOMI, Normocephalic Oral: Moist Mucosa Neck: Supple, No JVD Lungs: Clear to auscultation, Normal air movement, No rhonchi, No wheeze, No rales Cardiovascular: Regular rate, Regular Rhythm, Normal S1, Normal S2, No murmurs Abdomen: Soft, Non Tender, Non-Distended, No Hepato-splenomegaly Extremities: No edema, Capillary Refill Less than 3 Seconds Skin: No rashes, No breakdown Musculoskeletal: No Tenderness to Palpation of Joints or Extremities Neurological: No focal neurological deficits, Motor Exam 5/5 strength throughout, Sensory exam intact to light touch and pain Psych/Mental Status: Normal Affect, Appropriate Results Lab / Micro Data 05/22/24 10:15 05/22/24 10:15 Labs: Laboratory Results - last 24 hr 05/22/24 10:15: WBC 9.0, RBC 5.50, Hgb 15.6, Hct 47.7, MCV 86.7, MCH 28.4, MCHC 32.7, RDW Std Deviation 39.1, RDW Coeff of Mike 12.2, Plt Count 253, MPV 12.2 H, Immature Gran % (Auto) 0.400, Neut % (Auto) 76.8 H, Lymph % (Auto) 15.0 L, [place] % (Auto) 6.6, Eos % (Auto) 0.6, Baso % (Auto) 0.6, Absolute Neuts (auto) 6.9, Absolute Lymphs (auto) 1.35, Nucleated RBC % 0, Sodium 137, Potassium 4.0, Chloride 103, Carbon Dioxide 29.0, Anion Gap 5, BUN 16, Creatinine 0.83, Estim Creat Clear Calc 117.27, Est GFR (MDRD) Af Amer 129, Est GFR (MDRD) Non-Af 107, BUN/Creatinine Ratio 19.3, Glucose 110 H, Calcium 9.4, Total Bilirubin 0.40, AST 18, ALT 46, Alkaline Phosphatase 72, Total Protein 7.8, Albumin 4.4, Globulin 3.4, Albumin/Globulin Ratio 1.3, Ethyl Alcohol < 3.0 05/22/24 11:30: Urine Opiates Screen POSITIVE H, Urine Methadone Screen NEGATIVE, Ur Barbiturates Screen NEGATIVE, Ur Phencyclidine Scrn NEGATIVE, Ur Amphetamines Screen NEGATIVE, MDMA (Ecstasy) Screen NEGATIVE, U Benzodiazepines Scrn NEGATIVE, Urine Cocaine Screen NEGATIVE, U Cannabinoids Screen NEGATIVE, Ur Drug Screen Comment Assessment & Plan Assessment/Plan (1) Opiate abuse, continuous: PLAN: Plan 1. Requesting detox from opiates/tobacco abuse/anxiety/depression ? Continue with the opiate withdrawal protocol ? Metabolic follow-up with 180 ? Continue with nicotine gum, discussed cessation ? Will continue with his escitalopram and BuSpar 2. Essential HTN ? Stable ? Continue with his lisinopril DVT: Ambulation 57 minutes was spent on direct patient care, including documentation as well as chart review and collaboration with colleagues Charges/Coding Visit Charges Inpatient E&M: 52334 Init Hosp L2
[2024-05-22] MEDS: Gabapentin 300 MG Capsule PO (17:53)
[2024-05-22] MEDS: Methocarbamol 750 MG Tablet PO (17:53)
[2024-05-22] MEDS: cloNIDine HCl 0.1 MG Tablet PO (17:53)
[2024-05-22] MEDS: Nicotine Polacrilex 2 MG GUM PO (18:58)
[2024-05-22] MEDS: busPIRone 15 MG TABLET 7.5 MG PO (21:42)
[2024-05-23 02:10] VITALS: BP 117/83; PULSE 53; RESP 17; TEMP 36.4; O2SAT 94
[2024-05-23 06:39] VITALS: BP 136/88; PULSE 61; RESP 16; TEMP 36.6; O2SAT 96
[2024-05-23] MEDS: Methocarbamol 750 MG Tablet PO (06:45)
[2024-05-23] MEDS: hydrOXYzine PAM 25 MG Capsule 50 MG PO (06:45)
[2024-05-23] MEDS: Nicotine Polacrilex 2 MG GUM PO (06:50)
--- NOTE | 2024-05-23 09:19 | PCM.PN.HOSP ---
Subjective Subjective Starting to feel more symptomatic, Cina score of 4 at 2 AM Objective Data Objective Data Vital Signs: Vital Signs Temp Pulse Resp BP Pulse Ox O2 Del Method 97.8 F 61 16 136/88 H 96 Room Air 05/23/24 06:39 05/23/24 06:39 05/23/24 06:39 05/23/24 06:39 05/23/24 06:39 05/23/24 06:39 Oxygen Delivery Method Room Air Weight: 166 lb 12.8 oz Body Mass Index (BMI) 23.2 Intake & Output: Intake and Output for Last 24 Hours 05/22/24 05/23/24 05/24/24 03:59 03:59 03:59 Intake Total 660 / 660 200 / 200 Balance 660 / 660 200 / 200 Lab / Micro Data 05/22/24 10:15 05/22/24 10:15 Labs: Laboratory Results - last 24 hr 05/22/24 10:15: WBC 9.0, RBC 5.50, Hgb 15.6, Hct 47.7, MCV 86.7, MCH 28.4, MCHC 32.7, RDW Std Deviation 39.1, RDW Coeff of Mike 12.2, Plt Count 253, MPV 12.2 H, Immature Gran % (Auto) 0.400, Neut % (Auto) 76.8 H, Lymph % (Auto) 15.0 L, [place] % (Auto) 6.6, Eos % (Auto) 0.6, Baso % (Auto) 0.6, Absolute Neuts (auto) 6.9, Absolute Lymphs (auto) 1.35, Nucleated RBC % 0, Sodium 137, Potassium 4.0, Chloride 103, Carbon Dioxide 29.0, Anion Gap 5, BUN 16, Creatinine 0.83, Estim Creat Clear Calc 117.27, Est GFR (MDRD) Af Amer 129, Est GFR (MDRD) Non-Af 107, BUN/Creatinine Ratio 19.3, Glucose 110 H, Calcium 9.4, Total Bilirubin 0.40, AST 18, ALT 46, Alkaline Phosphatase 72, Total Protein 7.8, Albumin 4.4, Globulin 3.4, Albumin/Globulin Ratio 1.3, Ethyl Alcohol < 3.0 05/22/24 11:30: Urine Opiates Screen POSITIVE H, Urine Methadone Screen NEGATIVE, Ur Barbiturates Screen NEGATIVE, Ur Phencyclidine Scrn NEGATIVE, Ur Amphetamines Screen NEGATIVE, MDMA (Ecstasy) Screen NEGATIVE, U Benzodiazepines Scrn NEGATIVE, Urine Cocaine Screen NEGATIVE, U Cannabinoids Screen NEGATIVE, Ur Drug Screen Comment Physical Exam Narrative General: Alert, Oriented x3, Cooperative, No apparent distress, little restless HEENT: Atraumatic, PERRLA, EOMI, Normocephalic Oral: Moist Mucosa Neck: Supple, No JVD Lungs: Clear to auscultation, Normal air movement, No rhonchi, No wheeze, No rales Cardiovascular: Regular rate, Regular Rhythm, Normal S1, Normal S2, No murmurs Abdomen: Soft, Non Tender, Non-Distended, No Hepato-splenomegaly Extremities: No edema, Capillary Refill Less than 3 Seconds Skin: No rashes, No breakdown Musculoskeletal: No Tenderness to Palpation of Joints or Extremities Neurological: No focal neurological deficits, Motor Exam 5/5 strength throughout, Sensory exam intact to light touch and pain Psych/Mental Status: Flat, anxious Assessment & Plan Assessment/Plan (1) Opiate abuse, continuous: PLAN: Plan 1. Requesting detox from opiates/tobacco abuse/anxiety/depression ? Continue with the opiate withdrawal protocol ? Metabolic follow-up with 180 ? Continue with nicotine gum, discussed cessation ? Will continue with his escitalopram and BuSpar 2. Essential HTN ? Stable ? Continue with his lisinopril DVT: Ambulation Charges/Coding Visit Charges Inpatient E&M: 66643 Subs Hosp L2
[2024-05-23] MEDS: busPIRone 15 MG TABLET 7.5 MG PO ×2 (10:05→21:19)
[2024-05-23] MEDS: Meloxicam 15 MG Tablet PO (10:05)
[2024-05-23] MEDS: Escitalopram Oxalate 10 MG Tablet PO (10:05)
[2024-05-23] MEDS: Lisinopril 2.5 MG Tablet PO (10:05)
[2024-05-23 10:09] VITALS: BP 130/90; PULSE 67; RESP 16; TEMP 36.6; O2SAT 99
[2024-05-23] MEDS: Buprenorphine HCl 2 MG TAB.SUBL SL ×2 (10:16→17:56)
--- NOTE | 2024-05-23 12:26 | ADDICTION ---
This advertising writer met with PT to conduct ASAM, MSE, AUDIT assessments and to plan for d/c. PT A+Ox4 and participated actively. All assessments completed and placed in PT's chart. PT plans to f/u with [facility] for follow-up outpatient and MAT treatment services. PT did not indicate a need for transportation post d/c from [facility].
--- NOTE | 2024-05-23 13:30 | CHAPLAIN ---
Type of Pastoral Visit ___ Initial Visit ___ Follow-up Visit ___ On-call Visit ___ General Patient Visit ___ Spiritual Assessment ___ Family Conference ___ Bereavement ___ Rapid Response ___ Code Blue ___ Other (describe below) Pastoral Care Referral From ___ Patient ___ Family ___ Nurse ___ Physician ___ Tool Grinder ___ Superintendent Warehouse ___ Other (describe below) Sacrament/Intervention ___ Active listening ___ Anointing ___ Presybeterian ___ Bereavement ___ Communion ___ Ngozi exploration ___ ___ Life review ___ Prayer ___ Reconciliation ___ Sacrament of Sick ___ Supportive presence ___ Wedding ___ Other (describe below) Pastoral Comments patient was awakened when his name is called; pt requests a visit at a later time since I did not sleep last night; plan will be to visit tomorrow
[2024-05-23 17:40] VITALS: BP 123/88; PULSE 79; RESP 18; TEMP 36.9; O2SAT 97
[2024-05-23 21:15] VITALS: BP 131/85; PULSE 67; RESP 16; TEMP 36.8; O2SAT 97
[2024-05-24 00:25] VITALS: BP 113/83; PULSE 71; RESP 16; TEMP 36.4; O2SAT 97
[2024-05-24] MEDS: Buprenorphine HCl 2 MG TAB.SUBL SL ×3 (01:38→17:37)
[2024-05-24] MEDS: Escitalopram Oxalate 10 MG Tablet PO (08:43)
[2024-05-24] MEDS: Meloxicam 15 MG Tablet PO (08:43)
[2024-05-24] MEDS: Lisinopril 2.5 MG Tablet PO (08:43)
[2024-05-24] MEDS: busPIRone 15 MG TABLET 7.5 MG PO ×2 (08:52→21:07)
--- NOTE | 2024-05-24 09:16 | PCM.PN.HOSP ---
Subjective Subjective Feels better today than he did yesterday Cina score of 2 overnight. Objective Data Objective Data Vital Signs: Vital Signs Temp Pulse Resp BP Pulse Ox O2 Del Method 97.6 F L 71 16 113/83 H 97 Room Air 05/24/24 00:25 05/24/24 00:25 05/24/24 00:25 05/24/24 00:25 05/24/24 00:25 05/24/24 00:25 Oxygen Delivery Method Room Air Weight: 166 lb 12.793 oz Body Mass Index (BMI) 23.2 Intake & Output: Intake and Output for Last 24 Hours 05/23/24 05/24/24 05/25/24 03:59 03:59 03:59 Intake Total 660 / 660 700 / 700 Balance 660 / 660 700 / 700 Lab / Micro Data 05/22/24 10:15 05/22/24 10:15 Physical Exam Narrative General: Alert, Oriented x3, Cooperative, No apparent distress HEENT: Atraumatic, PERRLA, EOMI, Normocephalic Oral: Moist Mucosa Neck: Supple, No JVD Lungs: Clear to auscultation, Normal air movement, No rhonchi, No wheeze, No rales Cardiovascular: Regular rate, Regular Rhythm, Normal S1, Normal S2, No murmurs Abdomen: Soft, Non Tender, Non-Distended, No Hepato-splenomegaly Extremities: No edema, Capillary Refill Less than 3 Seconds Skin: No rashes, No breakdown Musculoskeletal: No Tenderness to Palpation of Joints or Extremities Neurological: No focal neurological deficits, Motor Exam 5/5 strength throughout, Sensory exam intact to light touch and pain Psych/Mental Status: Normal affect Assessment & Plan Assessment/Plan (1) Opiate abuse, continuous: PLAN: Plan 1. Requesting detox from opiates/tobacco abuse/anxiety/depression ? Continue with the opiate withdrawal protocol ? Metabolic follow-up with 180 ? Continue with nicotine gum, discussed cessation ? Will continue with his escitalopram and BuSpar 2. Essential HTN ? Stable ? Continue with his lisinopril DVT: Ambulation Charges/Coding Visit Charges Inpatient E&M: 56990 Subs Hosp L2
[2024-05-24 09:50] VITALS: BP 120/80; PULSE 64; RESP 18; TEMP 36.7; O2SAT 96
--- NOTE | 2024-05-24 10:54 | NURSING ---
Aware per primary RN Mckayla pt is agreeable to having information, aware no on directory. Shira given direct line to unit for updates. Updates given, discussed w/ Martha RN about making sure pt is aWare it is Subutex he is taking. per pt has gone through suboxone withdrawl in the past. states he was here in the past and was upset he didn't realize he was taking Subutex. informed would discuss with primary RN. educated on taper of subutex, not suboxone while here.
--- NOTE | 2024-05-24 14:45 | CHAPLAIN ---
Type of Pastoral Visit _x__ Initial Visit ___ Follow-up Visit ___ On-call Visit ___ General Patient Visit ___ Spiritual Assessment ___ Family Conference ___ Bereavement ___ Rapid Response ___ Code Blue ___ Other (describe below) Pastoral Care Referral From _x__ Patient ___ Family ___ Nurse ___ Physician ___ Android Architect ___ Court Recorder ___ Other (describe below) Sacrament/Intervention _x__ Active listening ___ Anointing ___ Latter Day ___ Bereavement ___ Communion _x__ Ngozi exploration ___ _x__ Life review _x__ Prayer ___ Reconciliation ___ Sacrament of Sick _x__ Supportive presence ___ Wedding ___ Other (describe below) Pastoral Comments patient had been seen previously this year and has returned to continue working on sobriety in life and development of his nogzi; pt is open to talk through his needs, what he is learning, how to admit need, and holding on to ngozi in [facility]; pt welcomes someone to talk with and for the prayers
[2024-05-24 15:15] VITALS: BP 126/85; PULSE 68; RESP 16; TEMP 36.7; O2SAT 94
[2024-05-24 21:04] VITALS: BP 130/90; PULSE 65; RESP 16; TEMP 37.1; O2SAT 97
[2024-05-24] MEDS: Paroxetine 20 MG Tablet PO (21:07)
[2024-05-25] MEDS: Buprenorphine HCl 2 MG TAB.SUBL SL ×2 (02:11→10:06)
[2024-05-25 03:00] VITALS: BP 119/92; PULSE 56; RESP 16; TEMP 36.7; O2SAT 97
[2024-05-25 03:05] VITALS: BP 119/92; PULSE 56; RESP 16; TEMP 36.7; O2SAT 97
[2024-05-25 09:26] VITALS: BP 126/87; PULSE 66; RESP 18; TEMP 36.8; O2SAT 97
[2024-05-25] MEDS: Lisinopril 2.5 MG Tablet PO (09:39)
[2024-05-25] MEDS: hydrOXYzine PAM 25 MG Capsule 50 MG PO (09:39)
[2024-05-25] MEDS: Meloxicam 15 MG Tablet PO (09:40)
[2024-05-25] MEDS: busPIRone 15 MG TABLET 7.5 MG PO (10:06)
--- NOTE | 2024-05-25 10:54 | DCINST_ITS ---
Discharge Instructions Diet Discharge Diet: No restrictions Activity Discharge Activity: Return to Normal Activity Dressing / Incision Call your doctor if you observe: Fever of 101 or Higher, Shortness of breath, Dizziness, Fainting spells, Swelling in the ankles, Chest pain and Increased palpitations (irregular heartbeat) Follow Up Care Test Results: Test results from this visit will be discussed in further detail at your follow- up appointment, if applicable. Discharge Plan Admission Admit Date/Time: 05/22/24 11:41 Attending Provider: Fly Zabala Primary Care Provider: Deborah Leonard Discharge Orders/Prescriptions Prescriptions: Continued paroxetine HCl 20 mg tablet 20 mg PO QHS lisinopril 2.5 mg tablet 2.5 mg PO DAILY Qty: 90 0RF Patient Comments: pt hasnt been taking, but states he needs to start meloxicam 15 mg tablet 15 mg PO DAILY Qty: 30 0RF buspirone 7.5 mg tablet 7.5 mg PO BID Qty: 60 0RF Discontinued escitalopram oxalate 10 mg tablet 10 mg PO DAILY Qty: 30 1RF Referrals / Follow Up: Deborah Leonard MD [Primary Care Provider] - Disposition Disposition (needs filled in before D/C Order can be placed): Home, Self Care
--- NOTE | 2024-05-25 16:30 | PCM.DC.SUM ---
Providers Date of Admission: 05/22/24 Primary Care Physician: Dr. Deborah Leonard MD Reason For Visit: OPIOD DETOX Diagnosis Discharge Diagnosis (1) Opiate abuse, continuous: Status: Acute Code(s): F11.10 - Opioid abuse, uncomplicated Medications at Discharge Home Medications lisinopril 2.5 mg tablet 2.5 mg PO DAILY BP #90 tabs 11/12/23 meloxicam 15 mg tablet 15 mg PO DAILY #30 tabs 01/04/24 buspirone 7.5 mg tablet 7.5 mg PO BID #60 tabs 03/31/24 paroxetine HCl 20 mg tablet 20 mg PO QHS mood 05/23/24 Hospital Course Operations None Procedures None Summary of Care Provided Minutes Spent on Discharge: 35 Hospital Course: Per HPI: FLY CHAUDHARY, is a 43 M who presents to the hospital requesting detox from opiates. He started using opiates after he had significant knee pain on the left after surgery. He has been clean at times on Suboxone but he tried to wean himself off and would start taking Percocets again to try to take the edge off and he became addicted again. Last use today was around 7 AM and he does not describe any significant symptoms at the moment but he says that if he were home he would be taking another opiate in an hour or 2. Hospital Course: 1. Opiate abuse requesting detox/tobacco abuse/anxiety/depression?43-year-old male presented to the hospital requesting detox from opiates, he uses a Percocets stemming from a knee injury and surgery. He is can a follow-up with 180 on Wednesday with his counselor. He does feel safe to go home today. He did complete the detox and was fairly asymptomatic today with a Cina score of 2. I discussed with him the plan for discharge he expressed understanding of the risk benefits going home and would like to go home today. Of note he is on Lexapro and Paxil, this is an inappropriate combination therefore the Lexapro was discontinued on discharge. Physical Exam Narrative General: Alert, Oriented x3, Cooperative, No apparent distress HEENT: Atraumatic, PERRLA, EOMI, Normocephalic Oral: Moist Mucosa Neck: Supple, No JVD Lungs: Clear to auscultation, Normal air movement, No rhonchi, No wheeze, No rales Cardiovascular: Regular rate, Regular Rhythm, Normal S1, Normal S2, No murmurs Abdomen: Soft, Non Tender, Non-Distended, No Hepato-splenomegaly Extremities: No edema, Capillary Refill Less than 3 Seconds Skin: No rashes, No breakdown Musculoskeletal: No Tenderness to Palpation of Joints or Extremities Neurological: No focal neurological deficits, Motor Exam 5/5 strength throughout, Sensory exam intact to light touch and pain Psych/Mental Status: Normal affect Weight / BMI Weight Weight: 166 lb 12.793 oz Body Mass Index (BMI) 23.2 ABG / Lab / Microbiology Data 05/22/24 10:15 05/22/24 10:15 D/C Instructions Discharge Diet: No restrictions Call your doctor if you observe: Fever of 101 or Higher, Shortness of breath, Dizziness, Fainting spells, Swelling in the ankles, Chest pain and Increased palpitations (irregular heartbeat) Meaningful Use Info Meaningful Use Meaningful Use Diagnoses (Choose all that apply): None applicable Ischemic Stroke Statin Dosing Therapy Reference: STATIN DOSE THERAPY REFERENCE: * Patients > 75 years receive moderate or high dose statin therapy. * Patients 75 years or YOUNGER should receive HIGH intensity statin dose unless contraindicated. You will be required to document reason for non-treatment if statin daily dose does not meet guidelines. HIGH DOSE STATIN THERAPY DAILY Atorvastatin > than or = to 40 mg Rosuvastatin > than or = to 20 mg Amlodipine + Atorvastatin > than or = to 2.5/40 mg Ezetimibe + Simvastatin 10/80 mg Simvastatin 80mg Discharge Plan Admission Admit Date/Time: 05/22/24 11:41 Attending Provider: Fly Zabala Primary Care Provider: Deborah Leonard Discharge Orders/Prescriptions Prescriptions: Continued paroxetine HCl 20 mg tablet 20 mg PO QHS lisinopril 2.5 mg tablet 2.5 mg PO DAILY Qty: 90 0RF Patient Comments: pt hasnt been taking, but states he needs to start meloxicam 15 mg tablet 15 mg PO DAILY Qty: 30 0RF buspirone 7.5 mg tablet 7.5 mg PO BID Qty: 60 0RF Discontinued escitalopram oxalate 10 mg tablet 10 mg PO DAILY Qty: 30 1RF Referrals / Follow Up: Deborah Leonard MD [Primary Care Provider] - Disposition Disposition (needs filled in before D/C Order can be placed): Home, Self Care Charges/Coding Visit Charges Inpatient E&M: 07889 Disch Hosp >30min
== END 2024-05-25 12:46 | disposition home or self-care (01) | DRG 897 ==
LOC: ED 12:27 → MS3 16:09
PROVIDERS: Admitting Provider Family Medicine; Emergency Provider Emergency Medicine; PCP Internal Medicine; Visit Provider Family Medicine
DX: F11.23 Opioid dependence with withdrawal (principal); F17.210 Nicotine dependence, cigarettes, uncomplicated; I10 Essential (primary) hypertension; F32.A Depression, unspecified; F41.9 Anxiety disorder, unspecified; F17.220 Nicotine dependence, chewing tobacco, uncomplicated; Z86.711 Personal history of pulmonary embolism
CPT/HCPCS: 36415; 80053; 80307; 82077; 85025; 99283

== ENCOUNTER 2024-11-25 02:03 | Emergency (ER) | payer OTHER, SELFPAY ==
[2024-11-25 02:04] VITALS: BP 144/96; PULSE 63; RESP 16; TEMP 36.6; O2SAT 99; BMI 25.2
--- NOTE | 2024-11-25 02:24 | CT_ITS ---
EXAM: ABDOMEN/PELVIS W IV CONT ONLY 11/25/2024 CLINICAL HISTORY: Right lower quadrant abdominal pain nausea vomiting COMPARISON: 11/02/2023 TECHNIQUE: CT of the abdomen and pelvis with contrast with coronal and sagittal reformatted images. 89 cc Isovue 370 contrast FINDINGS: Minimal dependent atelectasis at the bases. Scar at the lingula again seen. The liver, gallbladder, adrenal glands, kidneys and pancreas appear within limits. A few small varying in size nonspecific low-density foci within the spleen for example axial 34 and coronal 65 which may represent differences in splenic pulp, small cysts, nonspecific. Abdominal aorta appears within limits. No adenopathy. No bowel dilation or free air. Moderate colonic stool. Some fecalized material is seen within nondilated distal ileum which can be seen with slow, delayed bowel transit. Normal caliber appendix without secondary signs. The bladder appears within limits. No free fluid seen. The prostate appears within limits. Small fat containing umbilical hernia without stranding again noted. Similar appearance of the left pubic bone possible fibrous dysplasia or remote traumatic injury, unchanged. A few nonspecific small sclerotic pelvic foci again seen. CT/Abdomen/Pelvis W IV Cont ONLY IMPRESSION: No evidence of acute intra-abdominal process. No bowel dilation or free air. Moderate colonic stool. Some fecalized material is seen within nondilated distal ileum which can be seen with slow, delayed bowel transit. Normal caliber appendix without secon ulysses signs. Small fat containing umbilical hernia without stranding again noted. A few small varying in size nonspecific low-density foci within the spleen for example axial 34 and coronal 65 which may represent differences in splenic pulp, small cysts, nonspecific. May consider follow-up with multiphasic cross-sectional imaging. Reading Location: [id number]
[2024-11-25 02:36] LABS: Absolute Lymphocyte Count 2.39 X10^3/uL (0.83-4.51); Absolute Neutrophil Count 4.9 X10^3/uL (2.0-7.7); Basophil# 0.03 X10^3/uL; Basophil% 0.4 % (0-1); Eosinophil# 0.31 X10^3/uL; Eosinophils% 3.8 % (0-5); Hematocrit 44.3 % (40-54); Hemoglobin 14.9 g/dL (13.0-16.5); Lymphocyte # 2.39 X10^3/ul (0.83-4.51); Lymphocyte % 29.5 % (19-41); Mean Corp Hgb Conc 33.6 g/dL (32-36); Mean Corpuscular Hgb 28.1 pg (27.0-32.0); Mean Corpuscular Volume 83.6 fL (80-94); Mean Platelet Vol. 11.7 fl (6.2-12.0); Monocyte# 0.44 X10^3/uL; Monocyte% 5.4 % (0-10); NRBC Flagged by Analyzer 0 % (0-5); Neutrophil # 4.91 X10^3/uL (2.7-7.7); Neutrophil % 60.5 % (47-70); Platelet Count 232 K/mm3 (150-450); RBC Distribution Width SD 36.6 fl (35.1-43.9); White Blood Count 8.1 K/mm3 (4.4-11.0)
[2024-11-25] MEDS: Ondansetron 4 MG/2 ML Vial IV (02:37)
[2024-11-25] MEDS: Dicyclomine 10 MG Capsule 20 MG PO (02:37)
[2024-11-25] MEDS: 0.9% Normal Saline (1000mL) 1,000 ML 999 ML IV (02:37)
--- NOTE | 2024-11-25 02:43 | EDS_ITS ---
HPI History of Present Illness Chief Complaint: Abd Pain Narrative Narrative: Patient is a 44-year-old male with past medical history of substance abuse, vertigo, pericarditis who presented to the emergency department the chief complaint of abdominal pain. Patient states that earlier this evening he developed abdominal pain and had vomiting. He states that he has having severe pain he woke his significant other up at bedside and she states that he was very clammy to the touch. States that she had to help him to the bathroom. Given his symptoms I called EMS to have him brought here for the valuation management. Significant other at bedside states that their daughter was recently ill with norovirus. [facility] Medical History History of echocardiogram Substance abuse Back pain Generalized anxiety disorder Vertigo Hypertension Cervicalgia Nocturia Essential tremor Acute pericarditis (09/27/20) History of pulmonary embolus (PE) (10/21/13) History of non-ST elevation myocardial infarction (NSTEMI) (09/27/20) Anxiety Chewing tobacco use Elevated BP without diagnosis of hypertension Right groin pain Dermatitis Urinary frequency Kidney stones Back problem Home Medications ?Medication ?Instructions ?Recorded ?Last Taken ?Type meloxicam 15 mg tablet 15 mg PO DAILY #30 tabs 03/22 Unknown Rx buspirone 7.5 mg tablet 7.5 mg PO BID #60 tabs 03/31 Unknown Rx lisinopril 2.5 mg tablet 2.5 mg PO DAILY BP #90 tabs 10/12/24 Unknown Rx paroxetine HCl 30 mg tablet 30 mg PO QDAY #90 tabs 06/23 Unknown Rx dicyclomine 20 mg tablet 20 mg PO TID #30 tabs Unknown Rx ondansetron 4 mg disintegrating 4 mg PO Q6H PRN nausea and 11/25/24 Unknown Rx tablet vomiting #20 tabs Allergy/AdvReac Type Severity Reaction Status Date / Time No Known Allergies Allergy Verified 08/04/24 07:32 Family History Aunt Cancer CVA (cerebral vascular accident) Uncle Cancer Father Myocardial infarction Heart disease Colon cancer Mother Kidney disease Skin cancer Surgical History History of left heart catheterization (09/27/20) History of knee surgery Social History Smoking Status: Current every day smoker tobacco type: cigarettes and smokeless tobacco Smokeless tobacco user: chewing tobacco alcohol intake: never substance use type: does not use what type of physical activity do you participate in: none ROS ROS ED ROS Narrative Constitutional: Denies any chills, headaches, lightness, dizziness Cardiovascular: Denies chest pain or palpitations Respiratory: Denies coughing wheezing shortness of breath Abdomen: Complains of abdominal pain and vomiting as noted above denies diarrhea : Denies urinary symptoms Neurological: Denies numbness, weakness, tingling Musculoskeletal: Denies back pain Skin: Denies rashes or lesions EXAM Physical Exam Narrative Exam Narrative: General: Patient is lying bed did appear to be feeling unwell overall Head: Atraumatic, normocephalic Eyes: PERRL bilaterally, EOMI bilateral, no conjunctival injection noted Neck: Soft, supple, trachea midline Cardiovascular: Regular rate and rhythm no murmurs gallops rubs noted Respiratory: Clear to auscultation bilaterally Abdomen: Soft, diffuse tenderness palpation no rebound or guarding on exam Extremities: +5/5 strength noted in the bilateral upper and lower extremities Neurological: Patient follow commands knew that he was at [facility] years 2024 Skin: Warm, dry, intact no rashes or lesions noted Const Vital Signs: 11/25/24 02:04 Temperature 97.8 F Temperature Source Oral Pulse Rate 63 Respiratory Rate 16 Blood Pressure 144/96 H Blood Pressure Mean 112 Pulse Ox 99 Oxygen Delivery Method Room Air MDM MDM MDM Narrative Medical decision making narrative: Patient is a 44-year-old male who presented to the emergency department with the chief complaint of abdominal pain and not feeling well. On the differential diagnose includes Melamin to appendicitis, viral gastroenteritis, diverticulitis. Once workup is obtained reviewed he will be reevaluated. Patient be given fluids Zofran and Bentyl. Patient CBC was reviewed showed no evidence leukocytosis with blood count normal 8.1, hemoglobin 14.9, plate count of 232. Patient sodium was 137, potassium normal 3.9, creatinine was 0.84. Patient's AST and ALT were 77 and 101 with a normal total bilirubin of less than 0.15. Patient's lipase was 24. Patient CT abdomen pelvis with IV contrast reviewed showed no acute intra-abdominal processes. Small fat-containing umbilical hernia without stranding again noted. No bowel dilation or free air moderate colonic stool. On reevaluation the patient is feeling better and he wants to go home. He is advised to continue supportive care as he likely has a viral gastroenteritis. He will be sent Zofran and Bentyl to pharmacy. He is encouraged to return with worsening symptoms and concerns. He is agreeable this plan as well as significant other at bedside all question concerns answered is discharged home in stable condition. Lab Data Labs: Laboratory Results - last 24 hr 11/25/24 02:06 WBC 8.1 RBC 5.30 Hgb 14.9 Hct 44.3 MCV 83.6 MCH 28.1 MCHC 33.6 RDW Std Deviation 36.6 RDW Coeff of Mike 12.0 Plt Count 232 MPV 11.7 Immature Gran % (Auto) 0.400 Neut % (Auto) 60.5 Lymph % (Auto) 29.5 [place] % (Auto) 5.4 Eos % (Auto) 3.8 Baso % (Auto) 0.4 Absolute Neuts (auto) 4.9 Absolute Lymphs (auto) 2.39 Nucleated RBC % 0 Sodium 137 Potassium 3.9 Chloride 101 Carbon Dioxide 19.2 L Anion Gap 16 H BUN 18 Creatinine 0.84 Estim Creat Clear Calc 118.28 Est GFR (MDRD) Non-Af 110 BUN/Creatinine Ratio 21.9 H Glucose 153 H Calcium 10.0 Total Bilirubin < 0.15 AST 77 H ALT 101 H Alkaline Phosphatase 90 Total Protein 7.1 Albumin 4.6 Globulin 2.5 Albumin/Globulin Ratio 1.9 Lipase 24 Radiography Diagnostic Testing: Clinical Impression(s) from Imaging Studies Abdomen/Pelvis CT 11/25/24 02:24 IMPRESSION: No evidence of acute intra-abdominal process. No bowel dilation or free air. Moderate colonic stool. Some fecalized material is seen within nondilated distal ileum which can be seen with slow, delayed bowel transit. Normal caliber appendix without secondary signs. Small fat containing umbilical hernia without stranding again noted. A few small varying in size nonspecific low-density foci within the spleen for example axial 34 and coronal 65 which may represent differences in splenic pulp, small cysts, nonspecific. May consider follow-up with multiphasic cross-sectional imaging. Reading Location: [facility] Discharge Plan Triage Chief Complaint: Abd Pain ED Provider: Bk Morris Dx/Rx/DC Orders Clinical Impression: Abdominal pain Prescriptions: New dicyclomine 20 mg tablet 20 mg PO TID Qty: 30 0RF ondansetron 4 mg tablet,disintegrating 4 mg PO Q6H PRN (Reason: nausea and vomiting) Qty: 20 0RF No Action meloxicam 15 mg tablet 15 mg PO DAILY Qty: 30 0RF buspirone 7.5 mg tablet 7.5 mg PO BID Qty: 60 0RF lisinopril 2.5 mg tablet 2.5 mg PO DAILY Qty: 90 0RF Patient Comments: pt hasnt been taking, but states he needs to start paroxetine HCl 30 mg tablet 30 mg PO QDAY Qty: 90 0RF Primary Care Provider: Deborah Leonard Referrals: Deborah Leonard MD [Primary Care Provider] - Activity Restrictions/Additional Instructions: Your CT scan did not show anything surgical going on here tonight. Take the prescriptions as prescribed and continue supportive care as you likely have a virus causing your symptoms. You can rotate Tylenol and ibuprofen nightly do this you can take something every 3 hours max dose Tylenol 4000 mg max dose of ibuprofen 3200 mg. Return with any other concerns Print Language: [place]ralt[place] Disposition Disposition: Home, Self Care
[2024-11-25 02:53] LABS: Lipase 24 U/L (13-75)
[2024-11-25 03:10] LABS: ALB/GLOB Ratio 1.9 RATIO (0.9-2.4); AST(SGOT) 77 U/L (<=37); Alanine Aminotransfer ALT/SGPT 101 U/L (<=46); Albumin, Serum 4.6 g/dL (3.5-5.0); Anion Gap 16 (5-15); BUN 18 mg/dL (4-19); BUN/Creat Ratio 21.9 RATIO (10-20); Carbon Dioxide 19.2 mmol/L (21.0-32.0); Chloride 101 mmol/L (98-108); Creatinine, Serum 0.84 mg/dL (0.70-1.20); EST Glomerular Filtration Rate 110 (>60); Estimated Creatinine Clearance 118.28 ml/min (50-250); Globulin 2.5 g/dL (2.2-4.2); Glucose 153 mg/dL (70-99); Potassium 3.9 mmol/L (3.3-5.1); Protein, Total 7.1 g/dL (5.9-8.4); Sodium Level 137 mmol/L (133-145); Total Bilirubin < 0.15 mg/dL (0.00-1.30)
[2024-11-25 03:38] LABS: Alkaline Phosphatase 90 U/L (40-129)
[2024-11-25 03:58] VITALS: BP 131/79; PULSE 60; RESP 18; TEMP 36.6; O2SAT 99
== END 2024-11-25 04:02 | disposition home or self-care (01) ==
PROVIDERS: Emergency Provider Emergency Medicine; PCP Internal Medicine; Visit Provider Emergency Medicine
DX: R10.9 Unspecified abdominal pain (principal); R11.2 Nausea with vomiting, unspecified; K42.9 Umbilical hernia without obstruction or gangrene; I10 Essential (primary) hypertension; I25.2 Old myocardial infarction; F41.1 Generalized anxiety disorder; F17.210 Nicotine dependence, cigarettes, uncomplicated; F17.220 Nicotine dependence, chewing tobacco, uncomplicated; Z86.79 Personal history of other diseases of the circulatory system; Z86.711 Personal history of pulmonary embolism; Z79.899 Other long term (current) drug therapy; Z87.898 Personal history of other specified conditions
CPT/HCPCS: 74177; 80053; 83690; 85025; 96361; 96374; 99285; Q9967; A4216; J2405